=== PATIENT | male | born 1960 | race Caucasian/White ===

== ENCOUNTER 2019-04-28 16:28 | Inpatient (IN) | payer OTHER ==
[~2019-04-28] VITALS: Ht 180.3 cm; Wt 68.2 kg
[2019-04-28 17:20] LABS: BASOPHILS % (AUTO) 0.2 % (0-1); EOSINOPHILS % (AUTO) 0 % (0-6); HEMATOCRIT 49.3 % (42.0-52.0); HEMOGLOBIN 16.7 g/dl (14.0-17.9); LYMPHOCYTES # (AUTO) 1.4 X10'3 (1.1-4.8); LYMPHOCYTES % (AUTO) 8.4 % (21-51); MEAN CORPUSCULAR HEMOGLOBIN 32.2 PG (27.0-31.0); MEAN CORPUSCULAR HGB CONC 33.8 g/dL (33.0-36.5); MEAN CORPUSCULAR VOLUME 95.2 FL (78-98); MEAN PLATELET VOLUME 8.3 FL (7.4-10.4); MONOCYTES # (AUTO) 0.5 X10'3 (0-0.9); MONOCYTES % (AUTO) 2.7 % (2-12); NEUTROPHILS # (AUTO) 15.1 X10'3 (1.8-7.7); NEUTROPHILS % (AUTO) 88.7 % (42-75); PLATELET COUNT 418 X10'3 (140-440); RED BLOOD COUNT 5.17 X10'6 (4.70-6.10); RED CELL DISTRIBUTION WIDTH 12.9 % (11.5-14.5)
[2019-04-28 17:38] LABS: ALANINE AMINOTRANSFERASE 26 U/L (12-78); ALBUMIN 4.1 G/DL (3.4-5.0); ALKALINE PHOSPHATASE 81 IU/L (46-116); ANION GAP 17 (8-16); ASPARTATE AMINO TRANSFERASE 6 U/L (10-37); BILIRUBIN,TOTAL 1.1 MG/DL (0.1-1.0); BLOOD UREA NITROGEN 16 MG/DL (7-18); BUN/CREATININE RATIO 14.5 (5.4-32.0); CALCIUM 10.5 MG/DL (8.5-10.1); CHLORIDE 98 MMOL/L (99-107); LIPASE 542 U/L (73-393); POTASSIUM 4.6 MMOL/L (3.5-5.1); SODIUM 136 MMOL/L (135-145); TOTAL CARBON DIOXIDE 21.5 MMOL/L (24-32); TOTAL PROTEIN 8.4 G/DL (6.4-8.2); eGFR 68 ML/MIN
[2019-04-28 17:47] LABS: GLUCOSE 522 MG/DL (70-104)
[2019-04-28 18:10] LABS: COLOR,URINE YELLOW (Yellow); GLUCOSE, URINE >=1000 mg/dl (Neg); KETONES,URINE 40 mg/dl (Neg); LEUKOCYTE ESTERASE ,URINE NEGATIVE (Neg); NITRITES, URINE NEGATIVE (Neg); OCCULT BLOOD,URINE NEGATIVE (Neg); PH,URINE 5.5 (4.8-8.0); PROTEIN,URINE NEGATIVE (Neg); UROBILINOGEN,URINE 0.2 E.U/dL (0.2-1.0)
[2019-04-28 18:12] LABS: CLARITY,URINE SLIGHTLY CLOUDY (Clear); UA COLLECTION TYPE CLN CATCH MIDSTREAM
[2019-04-28] MEDS ORDERED: metoclopramide 5 mg/ml inj IV STA (18:14)
[2019-04-28] MEDS ORDERED: potassium CL 20mEq in D5-1/2NS 1,000 ML IV PRN (18:16)
[2019-04-28] MEDS ORDERED: sodium bicarbonate (8.4%) inj. 100 MEQ in dextrose 5% water 500ml 500 ML IV PRN (18:16)
[2019-04-28] MEDS ORDERED: insulin regular, DKA only 100 UNIT in normal saline 100ml IV soln 99 ML IV SCH ×2 (18:16)
[2019-04-28] MEDS ORDERED: sodium bicarbonate (8.4%) inj. 50 MEQ in dextrose 5% water 500ml 250 ML IV PRN (18:16)
[2019-04-28] MEDS ORDERED: metroNIDAZOLE-Flagyl 500mg/NS 100 ML IV STA (18:16)
[2019-04-28] MEDS ORDERED: normal saline 1000ML IV soln IVB ONE ×2 (18:20→20:55)
[2019-04-28] MEDS ORDERED: potassium Cl 20 mEq SR tablet PO PRN ×3 (18:20→21:00)
[2019-04-28] MEDS ORDERED: potassium CL 10mEq/100ml bag 100 ML IV PRN ×4 (18:20→21:00)
[2019-04-28] MEDS ORDERED: Neutra Phos packet PO PRN (18:20)
[2019-04-28] MEDS ORDERED: insulin regular, human vial - multi-dose IV PRN (18:20)
[2019-04-28] MEDS ORDERED: sodium phosphate inj. 30 MMOL in dextrose 5%-water 250 ML IV PRN (18:20)
[2019-04-28] MEDS ORDERED: sodium phosphate inj. 15 MMOL in dextrose 5%-water 150 ML IV PRN (18:20)
--- NOTE | 2019-04-28 18:23 | NUR ---
pt going out to ct. He was given reglan for his wretching episode.
--- NOTE | 2019-04-28 18:27 | NUR ---
Dr. Willett in room, he said to yes, please order Blood cultures. So done,
[2019-04-28 18:38] LABS: BACTERIA,URINE NONE SEEN /HPF (Neg); RBC,URINE 0-2 /HPF (0-2); WBC,URINE 0-4 /HPF (0-4)
[2019-04-28 18:40] LABS: SQUAMOUS EPITHELIAL CELL,UR FEW /LPF (FEW)
--- NOTE | 2019-04-28 18:46 | NUR ---
New IV RW, not able to get blood from site so phleb here to get blood.
[2019-04-28] MEDS ORDERED: insulin regular, human 10 units/0.1 ml syringe IV PRN (18:56)
[2019-04-28] MEDS: ciprofloxacin lact 400MG/200ML 200 ML IV SCH ×2 (19:00→20:00)
[2019-04-28] MEDS ORDERED: fentaNYL/PF 50MCG/1 ML 2ML syringe IV STA (19:18)
--- NOTE | 2019-04-28 19:19 | NUR ---
pt sitting up wretching and vomiting.
[2019-04-28] MEDS ORDERED: NO HOME MEDS (19:44)
--- NOTE | 2019-04-28 20:37 | NUR ---
PT SAYS HE HAS PAIN ACROSS HIS SHOULDER BLADES/BACK AREA, STILL NAUSEATED. HE LOOKS BETTER THOUGH. HE IS ACTUALLY PINK IN COLOR. INFORMED.
[2019-04-28] MEDS ORDERED: fentaNYL/PF 50MCG/1 ML 2ML syringe IV ONE (20:40)
[2019-04-28] MEDS ORDERED: ondansetron/PF 4mg/2ml inj IV ONE (20:40)
--- NOTE | 2019-04-28 20:42 | NUR ---
Dr Willett informed of LA, instructed to administer 2000ml NS bolus, so doing.
[2019-04-28] MEDS ORDERED: normal saline 1000ml 1,000 ML IVB ONE ×2 (20:48→20:50)
--- NOTE | 2019-04-28 20:55 | NUR ---
DR WOLFE STATED TO STOP THE INSULIN. SO DONE.
[2019-04-28] MEDS ORDERED: magnesium hydroxide 30ml (MOM) UD suspension PO PRN (21:00)
[2019-04-28] MEDS ORDERED: dextrose ORAL solution 15 GM/59 ML bottle PO PRN ×2 (21:00)
[2019-04-28] MEDS ORDERED: glucagon, human recombinant 1mg kit SUBCUT PRN (21:00)
[2019-04-28] MEDS ORDERED: acetaminophen 325mg tablet PO PRN ×2 (21:00)
[2019-04-28] MEDS ORDERED: HYDROcodone/acetaminophen 5mg/325mg tablet PO PRN (21:00)
[2019-04-28] MEDS ORDERED: MESSAGE TO PHARMACY PO ONE (21:00)
[2019-04-28] MEDS ORDERED: dextrose 50%-water 50ml dispensing syringe IV PRN ×2 (21:00)
[2019-04-28 21:19] LABS: HEMOGLOBIN A1C 10.3 % (4.5-6.2)
[2019-04-28 22:10] VITALS: BP 135/69
--- NOTE | 2019-04-28 22:27 | NUR ---
Patient in room PCU 3027. I have received report from Maricarmen MARINA and had the opportunity to ask questions and assume patient care.
[2019-04-28] MEDS: normal saline 1000ml 1,000 ML IV SCH (22:52)
[2019-04-28 23:00] VITALS: BP 158/83
--- NOTE | 2019-04-28 23:20 | NUR ---
Patient nauseated and tired, refused DARTing tonight.
[2019-04-28] MEDS: insulin glargine (Lantus) pen - multi-dose SQ SCH (23:24)
[2019-04-29 02:00] VITALS: BP 160/87
[2019-04-29] MEDS: ondansetron/PF 4mg/2ml inj IV PRN (02:20)
[2019-04-29] MEDS: mag hydrox/Alum hydrox/simeth 30ml oral suspension PO PRN (03:11)
[2019-04-29] MEDS: metoclopramide 5 mg/ml inj IV PRN (04:29)
[2019-04-29] MEDS: normal saline 1000ml 1,000 ML IV SCH ×3 (05:14→17:07)
[2019-04-29 06:00] VITALS: BP 151/82
--- NOTE | 2019-04-29 06:27 | NUR ---
Problems reprioritized. Patient report given, questions answered & plan of care reviewed with Krystian MARINA and orientee.
--- NOTE | 2019-04-29 06:28 | NUR ---
Patient in room PCU 3027. I have received report from SALAS Pereira and had the opportunity to ask questions and assume patient care.
[2019-04-29 07:14] LABS: BASOPHILS # (AUTO) 0.1 X10'3 (0-0.2); BASOPHILS % (AUTO) 0.3 % (0-1); EOSINOPHILS % (AUTO) 0 % (0-6); HEMOGLOBIN 13.5 g/dl (14.0-17.9); LYMPHOCYTES # (AUTO) 1.1 X10'3 (1.1-4.8); LYMPHOCYTES % (AUTO) 5.5 % (21-51); MEAN CORPUSCULAR HEMOGLOBIN 32.3 PG (27.0-31.0); MEAN CORPUSCULAR HGB CONC 33.8 g/dL (33.0-36.5); MEAN CORPUSCULAR VOLUME 95.3 FL (78-98); MONOCYTES # (AUTO) 0.7 X10'3 (0-0.9); MONOCYTES % (AUTO) 3.7 % (2-12); NEUTROPHILS # (AUTO) 17.5 X10'3 (1.8-7.7); NEUTROPHILS % (AUTO) 90.5 % (42-75); PLATELET COUNT 323 X10'3 (140-440); RED BLOOD COUNT 4.19 X10'6 (4.70-6.10); WHITE BLOOD COUNT 19.4 X10'3 (4.5-11.0)
--- NOTE | 2019-04-29 07:32 | NUR ---
2000 Ziprofloxan not ran by ER.
--- NOTE | 2019-04-29 07:33 | NUR ---
One liter Bolus for 1999 not ran by ER
[2019-04-29 07:35] LABS: ALBUMIN 2.8 G/DL (3.4-5.0); ANION GAP 14 (8-16); BLOOD UREA NITROGEN 12 MG/DL (7-18); CALCIUM 7.7 MG/DL (8.5-10.1); CHLORIDE 106 MMOL/L (99-107); CHOL/HDL RATIO 3.1 (0.00-4.99); CHOLESTEROL 166 MG/DL (0-200); CREATININE 0.86 MG/DL (0.60-1.10); GLUCOSE 307 MG/DL (70-104); HDL CHOLESTEROL 54 MG/DL (35-60); LDL CHOLESTEROL 105 MG/DL (50-100); POTASSIUM 3.8 MMOL/L (3.5-5.1); SODIUM 140 MMOL/L (135-145); TOTAL CARBON DIOXIDE 20.4 MMOL/L (24-32); TRIGLYCERIDES 37 MG/DL (20-135); eGFR > 90 ML/MIN
[2019-04-29] MEDS: K and/or MAG REPLACEMENT MC SCH ×2 (08:00)
[2019-04-29] MEDS: ciprofloxacin lact 400MG/200ML 200 ML IV SCH ×2 (08:13→19:53)
[2019-04-29] MEDS: enoxaparin 40mg/0.4ml syringe SUBCUT SCH (08:13)
[2019-04-29] MEDS: insulin Lispro (HumaLOG) vial - multi-dose SQ SCH ×2 (09:19→14:56)
[2019-04-29 11:00] VITALS: BP 101/61
[2019-04-29 15:00] VITALS: BP 118/68
[2019-04-29 15:37] LABS: BASOPHILS # (AUTO) 0.1 X10'3 (0-0.2); BASOPHILS % (AUTO) 0.6 % (0-1); EOSINOPHILS # (AUTO) 0.1 X10'3 (0-0.9); EOSINOPHILS % (AUTO) 0.9 % (0-6); HEMATOCRIT 39.9 % (42.0-52.0); HEMOGLOBIN 13.2 g/dl (14.0-17.9); LYMPHOCYTES # (AUTO) 1.8 X10'3 (1.1-4.8); LYMPHOCYTES % (AUTO) 11.8 % (21-51); MEAN CORPUSCULAR HEMOGLOBIN 31.8 PG (27.0-31.0); MEAN CORPUSCULAR HGB CONC 33.1 g/dL (33.0-36.5); MEAN CORPUSCULAR VOLUME 95.9 FL (78-98); MEAN PLATELET VOLUME 8.2 FL (7.4-10.4); MONOCYTES # (AUTO) 1.2 X10'3 (0-0.9); MONOCYTES % (AUTO) 7.7 % (2-12); NEUTROPHILS # (AUTO) 12.3 X10'3 (1.8-7.7); PLATELET COUNT 305 X10'3 (140-440); RED BLOOD COUNT 4.17 X10'6 (4.70-6.10); RED CELL DISTRIBUTION WIDTH 12.9 % (11.5-14.5); WHITE BLOOD COUNT 15.6 X10'3 (4.5-11.0)
--- NOTE | 2019-04-29 16:18 | NUR ---
DM consult: Pt with A1c 10.3 seen at bedside. Pt declined RD visit d/t having visitors at bedside. Written gastroparesis, list of fiber content in food, and DM education with referral to outpatient DM class and RD contact information left at bedside. Per H&P pt noncompliant with taking DM medications. Pt admit with N/V, diarrhea, and dehydration receiving PRN Reglan for hx gastroparesis. Pt currently on a clear liquid diet documented to have refused breakfast. Per pt he wont eat most of the food options on clear liquid diet d/t there being sugar in them. LBM 04/28. Will continue to follow. Recommendations: 1) Advance to low residue CHO controlled diet as medically indicated 2) Monitor acceptance to f/u verbal DM and gastroparesis education 3) Wt per rx Addendum: 04/29/19 at [address] Amended: Links added.
[2019-04-29 18:00] VITALS: BP 132/69
--- NOTE | 2019-04-29 18:25 | NUR ---
Problems reprioritized. Patient report given, questions answered & plan of care reviewed with SALAS Pereira.
--- NOTE | 2019-04-29 18:45 | NUR ---
Patient in room PCU 3027. I have received report from Kaz. and had the opportunity to ask questions and assume patient care.
--- NOTE | 2019-04-29 19:14 | NUR ---
No nutritional insulin coverage administered because of the unknown carb consumed by the patient and the patient diet was not advanced from Clear Liquid to Carb controlled diet. We will recheck his sugar at 2100.
[2019-04-29] MEDS: lactobacillus rhamnosus 10,000 MMU CELLS/CAPSULE PO SCH (19:54)
[2019-04-29] MEDS: insulin glargine (Lantus) pen - multi-dose SQ SCH (21:24)
[2019-04-29 22:00] VITALS: BP 139/89
[2019-04-30 02:00] VITALS: BP 112/70
[2019-04-30] MEDS: normal saline 1000ml 1,000 ML IV SCH ×2 (04:24→15:03)
--- NOTE | 2019-04-30 05:18 | NUR ---
Orientee documentation: I have reviewed and agree with all interventions, assessments performed and documented by Nely MARINA.
[2019-04-30 05:30] LABS: ALBUMIN 2.5 G/DL (3.4-5.0); ANION GAP 9 (8-16); BLOOD UREA NITROGEN 9 MG/DL (7-18); BUN/CREATININE RATIO 13.2 (5.4-32.0); CALCIUM 8.1 MG/DL (8.5-10.1); CHLORIDE 109 MMOL/L (99-107); CREATININE 0.68 MG/DL (0.60-1.10); GLUCOSE 133 MG/DL (70-104); POTASSIUM 3.1 MMOL/L (3.5-5.1); SODIUM 142 MMOL/L (135-145); TOTAL CARBON DIOXIDE 24.4 MMOL/L (24-32); eGFR > 90 ML/MIN
[2019-04-30 06:00] VITALS: BP 125/75
--- NOTE | 2019-04-30 06:15 | NUR ---
Problems reprioritized. Patient report given, questions answered & plan of care reviewed with Krystian MARINA.
[2019-04-30 06:17] LABS: BASOPHILS # (AUTO) 0.1 X10'3 (0-0.2); BASOPHILS % (AUTO) 0.5 % (0-1); EOSINOPHILS # (AUTO) 0.3 X10'3 (0-0.9); EOSINOPHILS % (AUTO) 2.6 % (0-6); HEMOGLOBIN 12.9 g/dl (14.0-17.9); LYMPHOCYTES % (AUTO) 18.1 % (21-51); MEAN CORPUSCULAR HGB CONC 34.9 g/dL (33.0-36.5); MEAN CORPUSCULAR VOLUME 94.6 FL (78-98); MONOCYTES # (AUTO) 0.7 X10'3 (0-0.9); MONOCYTES % (AUTO) 6.8 % (2-12); NEUTROPHILS # (AUTO) 7.8 X10'3 (1.8-7.7); PLATELET COUNT 285 X10'3 (140-440); RED BLOOD COUNT 3.91 X10'6 (4.70-6.10); RED CELL DISTRIBUTION WIDTH 12.9 % (11.5-14.5); WHITE BLOOD COUNT 10.9 X10'3 (4.5-11.0)
--- NOTE | 2019-04-30 06:59 | NUR ---
Patient in room PCU 3027. I have received report from SALAS Pereira and had the opportunity to ask questions and assume patient care.
[2019-04-30] MEDS: K and/or MAG REPLACEMENT MC SCH ×2 (07:05)
[2019-04-30] MEDS: lactobacillus rhamnosus 10,000 MMU CELLS/CAPSULE PO SCH ×2 (08:10→20:20)
[2019-04-30] MEDS: enoxaparin 40mg/0.4ml syringe SUBCUT SCH (08:10)
[2019-04-30] MEDS: potassium Cl 20 mEq SR tablet PO PRN ×2 (08:10→15:00)
[2019-04-30] MEDS: ciprofloxacin lact 400MG/200ML 200 ML IV SCH (08:11)
[2019-04-30] MEDS ORDERED: famotidine 20mg tablet PO SCH (09:20)
[2019-04-30] MEDS: mag hydrox/Alum hydrox/simeth 30ml oral suspension PO PRN (09:20)
[2019-04-30] MEDS: ondansetron/PF 4mg/2ml inj IV PRN ×2 (09:42→20:27)
[2019-04-30 11:00] VITALS: BP 163/81
[2019-04-30] MEDS: metoclopramide 5 mg/ml inj IV PRN (11:00)
[2019-04-30] MEDS: HYDROmorphone inj. 0.5 MG/0.5 ML DISP.SYRIN IV PRN ×2 (11:08→20:28)
[2019-04-30 14:01] LABS: H PYLORI ANTIBODY NEGATIVE (Neg)
[2019-04-30 14:24] LABS: ALANINE AMINOTRANSFERASE 21 U/L (12-78); ALBUMIN/GLOBULIN RATIO 0.9 (1.1-1.5); ASPARTATE AMINO TRANSFERASE 11 U/L (10-37); BILIRUBIN,DIRECT 0.1 MG/DL (0-0.3); BILIRUBIN,TOTAL 0.6 MG/DL (0.1-1.0); LIPASE 344 U/L (73-393); TOTAL PROTEIN 5.4 G/DL (6.4-8.2)
[2019-04-30 14:35] LABS: ALKALINE PHOSPHATASE 42 IU/L (46-116)
[2019-04-30 15:00] VITALS: BP 166/93
[2019-04-30] MEDS: pantoprazole 40 MG vial IV SCH (15:00)
[2019-04-30] MEDS: mag hydrox/Alum hydrox/simeth 30ml oral suspension PO SCH ×3 (15:00→20:20)
--- NOTE | 2019-04-30 16:18 | NUR ---
PAGER ID: [phone] MESSAGE: BAILEY [id number] Rl Garcias: BP 166/93 SALAS Boland Ext [phone]
[2019-04-30] MEDS ORDERED: LORazepam 1 MG tablet PO PRN (16:20)
--- NOTE | 2019-04-30 18:20 | NUR ---
Problems reprioritized. Patient report given, questions answered & plan of care reviewed with SALAS Sanders.
--- NOTE | 2019-04-30 18:22 | NUR ---
Patient in room PCU 3027. I have received report from SALAS Boland and had the opportunity to ask questions and assume patient care.
[2019-04-30 19:00] VITALS: BP 173/93
[2019-04-30] MEDS: insulin Lispro (HumaLOG) vial - multi-dose SQ SCH (19:40)
--- NOTE | 2019-04-30 20:37 | NUR ---
PAGER ID: [phone] MESSAGE: Patient Rl Garcias in room 9306J is experiencing extreme unresolved N/V. Zolfran is ineffective but must be given before Reglan according to orders. Can more effective medication be ordered. [facility] Marilyn [phone]
[2019-04-30] MEDS ORDERED: temazepam 15mg capsule PO PRN (20:55)
[2019-04-30] MEDS: insulin glargine (Lantus) pen - multi-dose SQ SCH (22:07)
[2019-04-30 23:00] VITALS: BP 115/67
[2019-05-01] VITALS (9 sets, daily range): BP systolic 94–143; BP diastolic 60–81
[2019-05-01] MEDS: normal saline 1000ml 1,000 ML IV SCH ×2 (00:31→10:24)
[2019-05-01] MEDS: HYDROmorphone inj. 0.5 MG/0.5 ML DISP.SYRIN IV PRN (00:32)
[2019-05-01 05:43] LABS: BASOPHILS % (AUTO) 0.4 % (0-1); EOSINOPHILS # (AUTO) 0.2 X10'3 (0-0.9); EOSINOPHILS % (AUTO) 1.6 % (0-6); HEMATOCRIT 37.9 % (42.0-52.0); HEMOGLOBIN 13.2 g/dl (14.0-17.9); LYMPHOCYTES % (AUTO) 20.7 % (21-51); MEAN CORPUSCULAR HEMOGLOBIN 32.9 PG (27.0-31.0); MEAN CORPUSCULAR HGB CONC 34.8 g/dL (33.0-36.5); MEAN CORPUSCULAR VOLUME 94.5 FL (78-98); MEAN PLATELET VOLUME 7.8 FL (7.4-10.4); MONOCYTES # (AUTO) 0.9 X10'3 (0-0.9); MONOCYTES % (AUTO) 9.4 % (2-12); NEUTROPHILS # (AUTO) 6.6 X10'3 (1.8-7.7); NEUTROPHILS % (AUTO) 67.9 % (42-75); PLATELET COUNT 293 X10'3 (140-440); RED BLOOD COUNT 4.01 X10'6 (4.70-6.10); RED CELL DISTRIBUTION WIDTH 12.8 % (11.5-14.5); WHITE BLOOD COUNT 9.7 X10'3 (4.5-11.0)
[2019-05-01 05:57] LABS: ALBUMIN 2.3 G/DL (3.4-5.0); ANION GAP 9 (8-16); BLOOD UREA NITROGEN 6 MG/DL (7-18); BUN/CREATININE RATIO 9.1 (5.4-32.0); CALCIUM 7.2 MG/DL (8.5-10.1); CHLORIDE 105 MMOL/L (99-107); CREATININE 0.66 MG/DL (0.60-1.10); GLUCOSE 111 MG/DL (70-104); SODIUM 140 MMOL/L (135-145); TOTAL CARBON DIOXIDE 25.9 MMOL/L (24-32); eGFR > 90 ML/MIN
[2019-05-01 06:04] LABS: POTASSIUM 2.9 MMOL/L (3.5-5.1)
--- NOTE | 2019-05-01 06:22 | NUR ---
Patient in room PCU 3027. I have received report from SALAS Sylvester and had the opportunity to ask questions and assume patient care.
--- NOTE | 2019-05-01 06:34 | NUR ---
Problems reprioritized. Patient report given, questions answered & plan of care reviewed with SALAS Boland. Addendum: 05/01/19 at 0635 by Krystian Delgado RN Correction reported received from SALAS Sanders.
[2019-05-01] MEDS: K and/or MAG REPLACEMENT MC SCH ×2 (07:17)
[2019-05-01] MEDS: mag hydrox/Alum hydrox/simeth 30ml oral suspension PO SCH ×3 (08:10→17:00)
[2019-05-01] MEDS: lactobacillus rhamnosus 10,000 MMU CELLS/CAPSULE PO SCH (08:10)
[2019-05-01] MEDS: pantoprazole 40 MG vial IV SCH (08:10)
[2019-05-01] MEDS: enoxaparin 40mg/0.4ml syringe SUBCUT SCH (08:11)
[2019-05-01] MEDS: Potassium Cl 40 MEQ in NS 500 ML IV SCH ×2 (09:36→13:00)
[2019-05-01] MEDS ORDERED: MIDAZolam 5mg/5ml vial ONE (12:12)
[2019-05-01] MEDS ORDERED: fentaNYL/PF 50MCG/1 ML 2ML syringe ONE (12:12)
[2019-05-01] MEDS ORDERED: LIDOcaine Viscous 15ml cup ONE (12:35)
[2019-05-01] MEDS ORDERED: METF500T PO (15:24)
[2019-05-01] MEDS ORDERED: PANT-47 PO (15:24)
[2019-05-01] MEDS ORDERED: ONDA4TAB6 PO (15:28)
--- NOTE | 2019-05-01 15:41 | NUR ---
Awaiting BMP before discharge to K of 2.98 in the morning.
[2019-05-01 16:44] LABS: ALBUMIN 2.6 G/DL (3.4-5.0); ANION GAP 9 (8-16); BLOOD UREA NITROGEN 7 MG/DL (7-18); BUN/CREATININE RATIO 11.5 (5.4-32.0); CALCIUM 7.7 MG/DL (8.5-10.1); CHLORIDE 108 MMOL/L (99-107); CREATININE 0.61 MG/DL (0.60-1.10); GLUCOSE 95 MG/DL (70-104); SODIUM 142 MMOL/L (135-145); TOTAL CARBON DIOXIDE 25.3 MMOL/L (24-32); eGFR > 90 ML/MIN
[2019-05-01 16:46] LABS: POTASSIUM 3.8 MMOL/L (3.5-5.1)
--- NOTE | 2019-05-01 17:09 | NUR ---
Discharged, IV and tele off. K normalized and tolerated solid foods. Educated on DM survival skill and GI Bleed. Educated on meds and follow up. Meds called into [facility] in [place]. Nadja for DC per .
== END 2019-05-01 17:20 | disposition home or self-care (01) | DRG 637 ==
LOC: ER 16:29 → PCU 3S 22:25
PROVIDERS: ADMIT Hospitalist; ATTEND Family Medicine
PROC: 0DB98ZX Excision of Duodenum, Via Natural or Artificial Opening Endoscopic, Diagnostic (ICD-10-PCS; principal; 2019-05-01)
PROC: 0DB68ZX Excision of Stomach, Via Natural or Artificial Opening Endoscopic, Diagnostic (ICD-10-PCS; 2019-05-01)
DX: E11.10 Type 2 diabetes mellitus with ketoacidosis without coma (principal); K85.90 Acute pancreatitis without necrosis or infection, unspecified; K86.1 Other chronic pancreatitis; K29.70 Gastritis, unspecified, without bleeding; D64.9 Anemia, unspecified; E11.43 Type 2 diabetes mellitus with diabetic autonomic (poly)neuropathy; E86.0 Dehydration; R74.8 Abnormal levels of other serum enzymes; E87.6 Hypokalemia; K31.84 Gastroparesis; K52.9 Noninfective gastroenteritis and colitis, unspecified; Z87.442 Personal history of urinary calculi; Z91.14 Patient's other noncompliance with medication regimen; Z91.19 Patient's noncompliance with other medical treatment and regimen; Z88.0 Allergy status to penicillin
CPT/HCPCS: 36415; 43239; 71045; 74176; 80048; 80053; 80061; 80076; 81001; 82948; 83036; 83605; 83690; 84145; 84443; 85025; 85610; 86677; 87040; 87081; 99152; 99285; A4620; C9113; G0378; J0744; J1170; J1650; J1815; J2250; J2405; J2765; J3010; J3480; J3490; J7030; J7040

== ENCOUNTER 2020-04-23 08:56 | Inpatient (IN) | payer MEDICAID ==
[~2020-04-23] VITALS: Ht 180.3 cm; Wt 68.2 kg
[~2020-04-23 08:56] MED LIST: ONDA4TAB6 PO; PANT-47 PO
[2020-04-23] MEDS ORDERED: ondansetron/PF 4mg/2ml inj IV ONE (09:15)
[2020-04-23] MEDS ORDERED: normal saline 1000ML IV soln IVB ONE (09:15)
[2020-04-23] MEDS ORDERED: morphine 4 MG/ML inj SYRINge IV PRN (09:15)
[2020-04-23] MEDS ORDERED: ciprofloxacin lact 400MG/200ML 200 ML IV STA (10:08)
[2020-04-23 10:25] LABS: BASOPHILS % (AUTO) 0.2 % (0-1); EOSINOPHILS % (AUTO) 0 % (0-6); HEMATOCRIT 44.3 % (42.0-52.0); HEMOGLOBIN 15.1 g/dl (14.0-17.9); LYMPHOCYTES # (AUTO) 0.8 X10'3 (1.1-4.8); MEAN CORPUSCULAR HEMOGLOBIN 32.7 PG (27.0-31.0); MEAN CORPUSCULAR VOLUME 96.3 FL (78-98); MEAN PLATELET VOLUME 7.3 FL (7.4-10.4); MONOCYTES # (AUTO) 0.3 X10'3 (0-0.9); MONOCYTES % (AUTO) 2.8 % (2-12); NEUTROPHILS # (AUTO) 10.6 X10'3 (1.8-7.7); PLATELET COUNT 283 X10'3 (140-440); RED BLOOD COUNT 4.61 X10'6 (4.70-6.10); RED CELL DISTRIBUTION WIDTH 13.2 % (11.5-14.5); WHITE BLOOD COUNT 11.7 X10'3 (4.5-11.0)
[2020-04-23 10:35] LABS: CLARITY,URINE CLEAR (Clear); COLOR,URINE YELLOW (Yellow); GLUCOSE, URINE 500 mg/dl (Neg); KETONES,URINE >=80 mg/dl (Neg); LEUKOCYTE ESTERASE ,URINE NEGATIVE (Neg); NITRITES, URINE NEGATIVE (Neg); OCCULT BLOOD,URINE LARGE (Neg); PROTEIN,URINE 100 mg/dl (Neg); UROBILINOGEN,URINE 0.2 E.U/dL (0.2-1.0)
[2020-04-23 10:36] LABS: ALANINE AMINOTRANSFERASE 26 U/L (12-78); ALBUMIN 4.3 G/DL (3.4-5.0); ALKALINE PHOSPHATASE 48 IU/L (46-116); ANION GAP 8 (8-16); ASPARTATE AMINO TRANSFERASE 11 U/L (10-37); BILIRUBIN,TOTAL 1.2 MG/DL (0.1-1.0); BLOOD UREA NITROGEN 16 MG/DL (7-18); CALCIUM 9.4 MG/DL (8.5-10.1); CHLORIDE 99 MMOL/L (99-107); CREATININE 1.07 MG/DL (0.60-1.10); GLUCOSE 256 MG/DL (70-104); LIPASE 57 U/L (73-393); SODIUM 136 MMOL/L (135-145); TOTAL CARBON DIOXIDE 29.1 MMOL/L (24-32); TOTAL PROTEIN 8.4 G/DL (6.4-8.2); eGFR 70 ML/MIN
[2020-04-23 10:42] LABS: RBC,URINE 50-100 /HPF (0-2); UA COLLECTION TYPE CLN CATCH MIDSTREAM; WBC,URINE NONE SEEN /HPF (0-4)
[2020-04-23 10:43] LABS: BACTERIA,URINE NONE SEEN /HPF (Neg); SQUAMOUS EPITHELIAL CELL,UR NONE SEEN /LPF (FEW)
[2020-04-23] MEDS ORDERED: ketorolac trometh. 30mg/ml inj. IV ONE (10:50)
[2020-04-23] MEDS ORDERED: proCHLORperazine 10 MG/2 ml inj IV ONE (11:15)
[2020-04-23] MEDS: tamsulosin 0.4mg capsule PO SCH ×2 (11:51→20:19)
[2020-04-23] MEDS ORDERED: magnesium 2GM in 50ml NS 50 ML IV PRN (13:35)
[2020-04-23] MEDS ORDERED: ondansetron/PF 4mg/2ml inj IV PRN (13:35)
[2020-04-23] MEDS ORDERED: magnesium Cl slow-release 64mg tablet PO PRN (13:35)
[2020-04-23] MEDS ORDERED: acetaminophen 325mg tablet PO PRN (13:35)
[2020-04-23] MEDS ORDERED: magnesium 4gm in 100ml NS 100 ML IV PRN (13:35)
--- NOTE | 2020-04-23 13:57 | NUR ---
nils [phone]
[2020-04-23] MEDS: normal saline 1000ml 1,000 ML IV SCH ×2 (14:26→23:44)
--- NOTE | 2020-04-23 15:29 | NUR ---
Received report from SALAS Solares. Awaiting patient arrival to room 350A.
[2020-04-23 15:43] VITALS: BP 103/53
--- NOTE | 2020-04-23 15:56 | NUR ---
Received patient to room 350A via gurney accompanied by x1 staff. Patient pleasant, A&O with no complaints at this time. Oriented patient to room and call light. Educated patient straining of all urine. NS@100 as ordered infusing. Bed is low and locked with x2 side rails up. nilesh Medina RN at bedside to DART patient.
[2020-04-23] MEDS ORDERED: dextrose ORAL solution 15 GM/59 ML bottle PO PRN ×2 (17:50)
[2020-04-23] MEDS ORDERED: insulin Lispro (HumaLOG) vial - multi-dose SQ SCH (17:50)
[2020-04-23] MEDS ORDERED: glucagon, human recombinant 1mg kit SUBCUT PRN (17:50)
[2020-04-23] MEDS ORDERED: dextrose 50%-water 50ml dispensing syringe IV PRN ×2 (17:50)
[2020-04-23] MEDS ORDERED: MESSAGE TO PHARMACY PO ONE (17:50)
--- NOTE | 2020-04-23 18:22 | NUR ---
Problems reprioritized. Patient report given, questions answered & plan of care reviewed with SALAS Piper.
[2020-04-23 18:33] LABS: HEMOGLOBIN A1C 6.1 % (4.5-6.2)
--- NOTE | 2020-04-23 18:37 | NUR ---
Patient in room BOZENA 350. I have received report from Cynthia MARINA and had the opportunity to ask questions and assume patient care.
[2020-04-23] MEDS: levoFLOXACIN-Levaquin 500mg/D5 100 ML IV SCH (18:42)
[2020-04-23] MEDS: pantoprazole 40 MG vial IV SCH (18:42)
[2020-04-23] MEDS: morphine 2 MG/ML inj. syringe IV PRN (18:49)
[2020-04-23 20:00] VITALS: BP 125/66
[2020-04-23] MEDS: insulin glargine (Lantus) pen - multi-dose SQ SCH (21:00)
[2020-04-23] MEDS ORDERED: tamsulosin 0.4mg capsule PO SCH (21:00)
--- NOTE | 2020-04-24 00:04 | NUR ---
patient is on clear liquid diet now so completed blood glucose q6h. Patient has not met DM protocol yet
[2020-04-24 00:15] VITALS: BP 102/53
[2020-04-24 05:49] LABS: BASOPHILS % (AUTO) 0.4 % (0-1); EOSINOPHILS % (AUTO) 0.3 % (0-6); HEMATOCRIT 32.9 % (42.0-52.0); HEMOGLOBIN 11.6 g/dl (14.0-17.9); LYMPHOCYTES # (AUTO) 1.9 X10'3 (1.1-4.8); LYMPHOCYTES % (AUTO) 20.6 % (21-51); MEAN CORPUSCULAR HEMOGLOBIN 33.8 PG (27.0-31.0); MEAN CORPUSCULAR HGB CONC 35.1 g/dL (33.0-36.5); MEAN CORPUSCULAR VOLUME 96.2 FL (78-98); MEAN PLATELET VOLUME 7.3 FL (7.4-10.4); MONOCYTES # (AUTO) 0.8 X10'3 (0-0.9); MONOCYTES % (AUTO) 8.6 % (2-12); NEUTROPHILS # (AUTO) 6.5 X10'3 (1.8-7.7); NEUTROPHILS % (AUTO) 70.1 % (42-75); PLATELET COUNT 231 X10'3 (140-440); RED BLOOD COUNT 3.42 X10'6 (4.70-6.10); RED CELL DISTRIBUTION WIDTH 13.1 % (11.5-14.5); WHITE BLOOD COUNT 9.2 X10'3 (4.5-11.0)
[2020-04-24 05:56] LABS: ALBUMIN 2.6 G/DL (3.4-5.0); ANION GAP 5 (8-16); BLOOD UREA NITROGEN 20 MG/DL (7-18); BUN/CREATININE RATIO 21.7 (5.4-32.0); CALCIUM 7.5 MG/DL (8.5-10.1); CHLORIDE 109 MMOL/L (99-107); CREATININE 0.92 MG/DL (0.60-1.10); GLUCOSE 129 MG/DL (70-104); MAGNESIUM 1.7 MG/DL (1.5-2.4); POTASSIUM 3.6 MMOL/L (3.5-5.1); SODIUM 140 MMOL/L (135-145); eGFR 84 ML/MIN
[2020-04-24] MEDS: morphine 2 MG/ML inj. syringe IV PRN ×3 (05:57→13:35)
--- NOTE | 2020-04-24 06:14 | NUR ---
Problems reprioritized. Patient report given, questions answered & plan of care reviewed with Malika MARINA.
--- NOTE | 2020-04-24 06:35 | NUR ---
Patient in room BOZENA 350. I have received report from linda MARINA and had the opportunity to ask questions and assume patient care.
[2020-04-24 07:00] VITALS: BP 172/79
[2020-04-24] MEDS: pantoprazole 40 MG vial IV SCH (07:20)
[2020-04-24] MEDS: levoFLOXACIN-Levaquin 500mg/D5 100 ML IV SCH (07:20)
[2020-04-24] MEDS ORDERED: LANTUS SQ (09:08)
--- NOTE | 2020-04-24 09:28 | NUR ---
patient vomited x3 this am and pain 10. Dr Arcos paged x2. Dr arcos informed patient is not under his care. Revised list sent. Dr nolasco paged and phone call made to cell phone awaiting reply.
[2020-04-24] MEDS ORDERED: proCHLORperazine 10 MG/2 ml inj IV PRN (09:35)
[2020-04-24] MEDS: normal saline 1000ml 1,000 ML IV SCH ×2 (09:46→20:19)
[2020-04-24 11:00] VITALS: BP 174/86
[2020-04-24] MEDS: HYDROmorphone 1 mg/ml syringe IV PRN (14:16)
--- NOTE | 2020-04-24 15:05 | NUR ---
DR Davis revised pain relief. Order given to Carmen MARINA to add Dilaudid see emar will monitor .
[2020-04-24 17:22] VITALS: BP 182/90
--- NOTE | 2020-04-24 17:40 | NUR ---
reviewed student nurse charting
--- NOTE | 2020-04-24 18:00 | NUR ---
Patient in room BOZENA 350. I have received report from Malika MARINA and had the opportunity to ask questions and assume patient care.
--- NOTE | 2020-04-24 18:32 | NUR ---
Problems reprioritized. Patient report given, questions answered & plan of care reviewed with linda MARINA.
[2020-04-24 19:48] VITALS: BP 136/71
[2020-04-24] MEDS: lactobacillus rhamnosus 10,000 MMU CELLS/CAPSULE PO SCH (20:20)
[2020-04-24] MEDS: tamsulosin 0.4mg capsule PO SCH (20:20)
[2020-04-24] MEDS: insulin glargine (Lantus) pen - multi-dose SQ SCH (21:00)
[2020-04-25] VITALS: BP 135/67
[2020-04-25 04:28] LABS: BASOPHILS % (AUTO) 0.4 % (0-1); EOSINOPHILS % (AUTO) 0.1 % (0-6); HEMATOCRIT 35.9 % (42.0-52.0); HEMOGLOBIN 12.3 g/dl (14.0-17.9); LYMPHOCYTES # (AUTO) 1.6 X10'3 (1.1-4.8); LYMPHOCYTES % (AUTO) 14.9 % (21-51); MEAN CORPUSCULAR HGB CONC 34.3 g/dL (33.0-36.5); MEAN CORPUSCULAR VOLUME 96.3 FL (78-98); MEAN PLATELET VOLUME 6.9 FL (7.4-10.4); MONOCYTES # (AUTO) 0.9 X10'3 (0-0.9); NEUTROPHILS # (AUTO) 8.3 X10'3 (1.8-7.7); NEUTROPHILS % (AUTO) 76.6 % (42-75); PLATELET COUNT 238 X10'3 (140-440); RED BLOOD COUNT 3.73 X10'6 (4.70-6.10); RED CELL DISTRIBUTION WIDTH 13.1 % (11.5-14.5); WHITE BLOOD COUNT 10.9 X10'3 (4.5-11.0)
[2020-04-25 04:40] LABS: ALBUMIN 2.7 G/DL (3.4-5.0); ANION GAP 7 (8-16); BLOOD UREA NITROGEN 15 MG/DL (7-18); CALCIUM 7.7 MG/DL (8.5-10.1); CHLORIDE 105 MMOL/L (99-107); CREATININE 0.79 MG/DL (0.60-1.10); GLUCOSE 154 MG/DL (70-104); MAGNESIUM 1.6 MG/DL (1.5-2.4); POTASSIUM 3.6 MMOL/L (3.5-5.1); SODIUM 138 MMOL/L (135-145); eGFR > 90 ML/MIN
[2020-04-25] MEDS: normal saline 1000ml 1,000 ML IV SCH ×3 (05:34→20:33)
--- NOTE | 2020-04-25 06:22 | NUR ---
Problems reprioritized. Patient report given, questions answered & plan of care reviewed with Malika MARINA.
[2020-04-25] MEDS: HYDROmorphone 1 mg/ml syringe IV PRN ×2 (06:24→17:45)
--- NOTE | 2020-04-25 06:33 | NUR ---
patient c/o pain 04/26. medicated with dilaudid see emar will continue to monitor.
--- NOTE | 2020-04-25 06:48 | NUR ---
Patient in room BOZENA 350. I have received report from linda MARINA and had the opportunity to ask questions and assume patient care.
[2020-04-25] MEDS: pantoprazole 40 MG vial IV SCH (07:39)
[2020-04-25] MEDS: levoFLOXACIN-Levaquin 500mg/D5 100 ML IV SCH (07:39)
[2020-04-25] MEDS: lactobacillus rhamnosus 10,000 MMU CELLS/CAPSULE PO SCH ×2 (07:39→20:32)
[2020-04-25 08:00] VITALS: BP 101/54
[2020-04-25 11:00] VITALS: BP 156/77
--- NOTE | 2020-04-25 17:57 | NUR ---
patient medicated with dilaudid with effect x2. Seen by Dr Davis. All urine strained. No stones or particulates observed. Stable at time of report.
--- NOTE | 2020-04-25 18:17 | NUR ---
Problems reprioritized. Patient report given, questions answered & plan of care reviewed with linda MARINA.
--- NOTE | 2020-04-25 18:18 | NUR ---
Patient in room BOZENA 350. I have received report from Malika MARINA and had the opportunity to ask questions and assume patient care.
[2020-04-25 20:00] VITALS: BP 126/62
[2020-04-25] MEDS: tamsulosin 0.4mg capsule PO SCH (20:32)
[2020-04-25] MEDS: insulin glargine (Lantus) pen - multi-dose SQ SCH (20:38)
[2020-04-26] VITALS: BP 147/76
--- NOTE | 2020-04-26 06:13 | NUR ---
Problems reprioritized. Patient report given, questions answered & plan of care reviewed with Suzy MARINA.
[2020-04-26 06:24] LABS: ALBUMIN 2.6 G/DL (3.4-5.0); ANION GAP 7 (8-16); BLOOD UREA NITROGEN 8 MG/DL (7-18); BUN/CREATININE RATIO 11.3 (5.4-32.0); CALCIUM 8.1 MG/DL (8.5-10.1); CHLORIDE 105 MMOL/L (99-107); CREATININE 0.71 MG/DL (0.60-1.10); GLUCOSE 124 MG/DL (70-104); MAGNESIUM 1.5 MG/DL (1.5-2.4); POTASSIUM 3.4 MMOL/L (3.5-5.1); SODIUM 137 MMOL/L (135-145); TOTAL CARBON DIOXIDE 25.1 MMOL/L (24-32); eGFR > 90 ML/MIN
[2020-04-26 07:00] VITALS: BP 142/75
[2020-04-26] MEDS: levoFLOXACIN-Levaquin 500mg/D5 100 ML IV SCH (07:36)
[2020-04-26] MEDS: pantoprazole 40 MG vial IV SCH (07:36)
[2020-04-26] MEDS: lactobacillus rhamnosus 10,000 MMU CELLS/CAPSULE PO SCH (07:36)
[2020-04-26] MEDS: HYDROmorphone 1 mg/ml syringe IV PRN (07:37)
[2020-04-26] MEDS: normal saline 1000ml 1,000 ML IV SCH (07:49)
--- NOTE | 2020-04-26 10:08 | NUR ---
Paged MD regarding low K level. called floor and stated she would put orders for potassium replacement.
[2020-04-26] MEDS ORDERED: potassium Cl 20 mEq SR tablet PO STA (10:10)
[2020-04-26] MEDS ORDERED: HYDR-4383 PO (10:55)
[2020-04-26] MEDS ORDERED: CIPR-259 PO (10:55)
[2020-04-26] MEDS ORDERED: ACET-1008 PO (10:55)
[2020-04-26] MEDS ORDERED: tamsulosin capsule PO (10:55)
[2020-04-26 12:07] LABS: BASOPHILS % (AUTO) 0.5 % (0-1); EOSINOPHILS # (AUTO) 0.1 X10'3 (0-0.9); EOSINOPHILS % (AUTO) 0.8 % (0-6); HEMATOCRIT 37.8 % (42.0-52.0); HEMOGLOBIN 13.1 g/dl (14.0-17.9); LYMPHOCYTES # (AUTO) 1.4 X10'3 (1.1-4.8); LYMPHOCYTES % (AUTO) 18.9 % (21-51); MEAN CORPUSCULAR HEMOGLOBIN 33.1 PG (27.0-31.0); MEAN CORPUSCULAR HGB CONC 34.5 g/dL (33.0-36.5); MEAN CORPUSCULAR VOLUME 95.9 FL (78-98); MEAN PLATELET VOLUME 7.6 FL (7.4-10.4); MONOCYTES # (AUTO) 0.7 X10'3 (0-0.9); MONOCYTES % (AUTO) 9.8 % (2-12); NEUTROPHILS # (AUTO) 5.3 X10'3 (1.8-7.7); PLATELET COUNT 258 X10'3 (140-440); RED BLOOD COUNT 3.94 X10'6 (4.70-6.10); RED CELL DISTRIBUTION WIDTH 12.8 % (11.5-14.5); WHITE BLOOD COUNT 7.6 X10'3 (4.5-11.0)
--- NOTE | 2020-04-26 12:07 | NUR ---
Reviewed discharge paperwork with pt. Pt. slightly disgruntled about discharge. Afraid his pain will not be managed and that he will need to "come right back". Pt. reassured. Pain prescription written for [place] provided to pt. Education given on gastritis, diabetes, A1C test, and duodenitis. Pt. was given the opportunity to ask questions. Discussed follow up care. Contact information given for MD [facility] office. Pt. knows to see Priscilla and his PCP within a week. Pt. has no questions about new medications which were called into [facility] in [place] by Joce. Waiting on CBC labs from this AM and pt's transport. Pt. has called his son and his son is coming to pick the pt. up.
--- NOTE | 2020-04-26 12:26 | NUR ---
IV DC'd, pressure bandage applied. NO s/sx bleeding. Pt. escorted in w/c to lower floor where son was here to transport pt. home. Pt. left with his belongings.
[2020-04-26 12:27] VITALS: BP 140/68
== END 2020-04-26 12:27 | disposition home or self-care (01) | DRG 463 ==
LOC: ER 08:57 → ED HOLD 13:34 → SUR 3N 15:37
PROVIDERS: ADMIT Internal Medicine; ATTEND Internal Medicine
DX: N13.6 Pyonephrosis (principal); E11.9 Type 2 diabetes mellitus without complications; E87.2 Acidosis; K21.9 Gastro-esophageal reflux disease without esophagitis; N40.0 Benign prostatic hyperplasia without lower urinary tract symptoms; Z79.4 Long term (current) use of insulin; Z87.442 Personal history of urinary calculi; Z79.899 Other long term (current) drug therapy
CPT/HCPCS: 36415; 74176; 80048; 80053; 81001; 82948; 83036; 83605; 83690; 83735; 84145; 84153; 85025; 87040; 87081; 93005; 96365; 96375; 99285; C9113; G0378; J0744; J0780; J1170; J1815; J1885; J1956; J2270; J2405; J7030

== ENCOUNTER 2020-09-06 13:11 | Emergency (ER) | payer MEDICAID ==
[~2020-09-06] VITALS: Ht 180.3 cm; Wt 70.5 kg
[~2020-09-06 13:11] MED LIST changes: +HYDR-4383 PO; +LANTUS SQ; -ONDA4TAB6 PO; -PANT-47 PO; +tamsulosin capsule PO
[2020-09-06] MEDS ORDERED: ondansetron/PF 4mg/2ml inj IV ONE (14:00)
[2020-09-06] MEDS ORDERED: ringers solution, lactated 1000ml IV soln IV ONE (14:00)
[2020-09-06] MEDS ORDERED: ondansetron 4mg rapidly disintigrating tab PO ONE (14:05)
--- NOTE | 2020-09-06 14:45 | NUR ---
PT SITTING ON CHAIR IN TENT, GIVEN ORAL ZOFRAN FOR N/V
[2020-09-06 14:51] LABS: BASOPHILS % (AUTO) 0.2 % (0-1); EOSINOPHILS % (AUTO) 0 % (0-6); HEMATOCRIT 43.2 % (42.0-52.0); HEMOGLOBIN 14.6 g/dl (14.0-17.9); LYMPHOCYTES # (AUTO) 0.5 X10'3 (1.1-4.8); LYMPHOCYTES % (AUTO) 3.6 % (21-51); MEAN CORPUSCULAR HEMOGLOBIN 32.2 PG (27.0-31.0); MEAN CORPUSCULAR HGB CONC 33.7 g/dL (33.0-36.5); MEAN CORPUSCULAR VOLUME 95.5 FL (78-98); MONOCYTES # (AUTO) 0.7 X10'3 (0-0.9); MONOCYTES % (AUTO) 4.8 % (2-12); NEUTROPHILS # (AUTO) 12.8 X10'3 (1.8-7.7); NEUTROPHILS % (AUTO) 91.4 % (42-75); PLATELET COUNT 213 X10'3 (140-440); RED BLOOD COUNT 4.52 X10'6 (4.70-6.10); RED CELL DISTRIBUTION WIDTH 12.9 % (11.5-14.5); WHITE BLOOD COUNT 14.1 X10'3 (4.5-11.0)
--- NOTE | 2020-09-06 15:05 | NUR ---
PT STILL HAS SOME RETCHING AFTER ORAL ZOFRAN AND CONTINUES TO C/O ABD PAIN
[2020-09-06 15:06] LABS: ALANINE AMINOTRANSFERASE 29 U/L (12-78); ALBUMIN 3.4 G/DL (3.4-5.0); ALBUMIN/GLOBULIN RATIO 0.8 (1.1-1.5); ALKALINE PHOSPHATASE 52 IU/L (46-116); ANION GAP 10 (8-16); ASPARTATE AMINO TRANSFERASE 15 U/L (10-37); BILIRUBIN,TOTAL 1.1 MG/DL (0.1-1.0); BLOOD UREA NITROGEN 19 MG/DL (7-18); CALCIUM 8.9 MG/DL (8.5-10.1); CHLORIDE 96 MMOL/L (99-107); CREATININE 1.27 MG/DL (0.60-1.10); GLUCOSE 322 MG/DL (70-104); LIPASE < 50 U/L (73-393); POTASSIUM 4.1 MMOL/L (3.5-5.1); SODIUM 134 MMOL/L (135-145); TOTAL CARBON DIOXIDE 28.5 MMOL/L (24-32); TOTAL PROTEIN 7.9 G/DL (6.4-8.2); eGFR 58 ML/MIN
[2020-09-06] MEDS ORDERED: ONDA4TAB6 PO (15:34)
--- NOTE | 2020-09-06 16:00 | NUR ---
PT CONTINUES VOMITING WILL MOVE PT INSIDE FOR IVF
--- NOTE | 2020-09-06 16:24 | NUR ---
DAVION ARGUETA [phone]
[2020-09-06] MEDS ORDERED: dicyclomine 10 MG capsule PO ONE (18:10)
[2020-09-06] MEDS ORDERED: insulin regular, human 10 units/0.1 ml syringe SQ ONE (18:10)
[2020-09-06] MEDS ORDERED: proCHLORperazine 10 MG/2 ml inj IV ONE (18:10)
[2020-09-06 18:50] VITALS: BP 180/92
== END 2020-09-06 20:02 | disposition home or self-care (01) ==
LOC: ER 13:11
DX: U07.1 COVID-19 (principal); R05 Cough; R11.2 Nausea with vomiting, unspecified; R10.84 Generalized abdominal pain; R50.9 Fever, unspecified; E11.9 Type 2 diabetes mellitus without complications; Z88.0 Allergy status to penicillin; Z88.8 Allergy status to other drugs, medicaments and biological substances; Z79.4 Long term (current) use of insulin; Z79.899 Other long term (current) drug therapy
CPT/HCPCS: 36415; 80053; 82948; 83690; 85025; 96361; 96372; 96374; 96375; 99285; J0780; J1815; J2405; J7120

== ENCOUNTER 2020-09-12 20:39 | Inpatient (IN) | payer MEDICAID ==
[~2020-09-12] VITALS: Ht 175.3 cm; Wt 76.1 kg
[~2020-09-12 20:39] MED LIST changes: +ONDA4TAB6 PO
[2020-09-12 21:51] LABS: BASOPHILS # (AUTO) 0.1 X10'3 (0-0.2); EOSINOPHILS % (AUTO) 0 % (0-6); LYMPHOCYTES # (AUTO) 0.4 X10'3 (1.1-4.8); MONOCYTES # (AUTO) 0.7 X10'3 (0-0.9); PLATELET COUNT 364 X10'3 (140-440)
[2020-09-12 21:52] LABS: BASOPHILS % (AUTO) 0.3 % (0-1); HEMATOCRIT 37.3 % (42.0-52.0); LYMPHOCYTES % (AUTO) 2.4 % (21-51); MEAN CORPUSCULAR HEMOGLOBIN 32.3 PG (27.0-31.0); MEAN CORPUSCULAR HGB CONC 34.8 g/dL (33.0-36.5); MEAN CORPUSCULAR VOLUME 92.7 FL (78-98); MONOCYTES % (AUTO) 4.4 % (2-12); NEUTROPHILS # (AUTO) 15.5 X10'3 (1.8-7.7); NEUTROPHILS % (AUTO) 92.9 % (42-75); RED BLOOD COUNT 4.02 X10'6 (4.70-6.10); RED CELL DISTRIBUTION WIDTH 12.9 % (11.5-14.5); WHITE BLOOD COUNT 16.7 X10'3 (4.5-11.0)
[2020-09-12 22:05] LABS: ALANINE AMINOTRANSFERASE 22 U/L (12-78); ALBUMIN 1.8 G/DL (3.4-5.0); ALBUMIN/GLOBULIN RATIO 0.5 (1.1-1.5); ALKALINE PHOSPHATASE 44 IU/L (46-116); ANION GAP 4 (8-16); ASPARTATE AMINO TRANSFERASE 22 U/L (10-37); BILIRUBIN,TOTAL 0.8 MG/DL (0.1-1.0); BLOOD UREA NITROGEN 13 MG/DL (7-18); BUN/CREATININE RATIO 10.2 (5.4-32.0); CALCIUM 7.5 MG/DL (8.5-10.1); CHLORIDE 93 MMOL/L (99-107); CREATININE 1.28 MG/DL (0.60-1.10); GLUCOSE 147 MG/DL (70-104); POTASSIUM 3.5 MMOL/L (3.5-5.1); SODIUM 128 MMOL/L (135-145); TOTAL CARBON DIOXIDE 30.8 MMOL/L (24-32); TOTAL PROTEIN 5.8 G/DL (6.4-8.2); eGFR 57 ML/MIN
[2020-09-12] MEDS ORDERED: INSU100I31 SQ (22:05)
--- NOTE | 2020-09-12 22:05 | NUR ---
PT HAS THE HICCUPS OVER THE PAST FEW DAYS THAT HAVE NOT STOPPED. STATES HE CAN DRINK "SOME OF THAT GI PREP STUFF THEY GAVE ME FOR COLONOSCOPY" AND SMALL PORTION OF IT AND IT HALPS RELIEF THE HICCUPING FOR A FEW HRS. STATES HE HAS NOT SLEPT IN DAYS D/T THE HICCUPING. STATES HE HAS DEALT WITH HICCUPING EPISODES IN PAST REPORTS SOME NAUSEA. REMAINS ON 15 L NRBWITH SATS 94%. STATES HE IS VERY WEAK AND HIS HAS HAD TO HELP HIM TO BR AND AROUND HOUSE THE PAST FEW DAYS D/T HIS WEAKNESS. AWAITING ER MD.
[2020-09-12] MEDS ORDERED: enoxaparin 100mg/ml syringe SUBCUT ONE (22:20)
[2020-09-12 22:43] LABS: ABG BASE EXCESS 1.2 mmol/L (-2.0-2.0); ABG HCO3 22.9 mmol/L (22.0-26.0); ABG OXYGEN SATURATION 89.3 % (94-97); ABG PCO2 (T) 28.7 mmHg (35.0-48.0); ABG PO2 (T) 51.5 mmHg (75.0-100.0); ALLEN'S TEST POSITIVE; FLOW 15 L/min; FMetHb 0.3 % (0.0-1.5); FO2Hb 88.1 % (94-97); PATIENT TEMPERATURE 37.1; RESPIRATORY RATE 16 b/min; TOTAL HEMOGLOBIN 13.8 G/dl (14.0-18.0)
[2020-09-12 23:10] LABS: C-REACTIVE PROTEIN 11.48 MG/DL (0.0-0.5)
[2020-09-12] MEDS: dexamethasone inj 6 MG in normal saline 50ml IV soln 50 ML IV SCH (23:47)
--- NOTE | 2020-09-12 23:51 | NUR ---
pT'S o2 DROPPED TO LOW 80'S RT AT BEDSIDE TO INCREASE O2. AUGUST AT BEDSIDE FOR EVALUATION AND ADMISSION OF PATIENT. PT NO HAS O2 OF 95% ON HIGH FLOW O2
[2020-09-13] VITALS (13 sets, daily range): BP systolic 94–145; BP diastolic 56–81
--- NOTE | 2020-09-13 | NUR ---
SALAS FLORIAN CALLED SON ROJELIO, AND UPDATED ON STATUS AND ADMISSION. ENCOURAGED TO CALL IN THE AM FOR UPDATE.
--- NOTE | 2020-09-13 00:37 | NUR ---
PT'S O2 SATS 92% ON HIGH FLOW 100% SUPPL O2. RR REMAINS 34-36.
[2020-09-13] MEDS ORDERED: LORazepam 2 mg/ml vial IV ONE (00:55)
--- NOTE | 2020-09-13 00:56 | NUR ---
PT CONTINUES TO REPORT 8 OUT OF 10 PAIN TO HIS ABDOMEN AND IS HAVING INCREASING COUGHIN EPISODES, NON PRODUCTIVE. HE STATES HE FEELS LIKE HE CAN'T CATCH HIS BREATH AND THAT HIS "LUNGS ARE SPASMING". DR. FLOWERS UPDATED AND WILL ORDER ATIVAN.
[2020-09-13] MEDS ORDERED: LORazepam 2 mg/ml vial ONE (01:07)
--- NOTE | 2020-09-13 01:12 | NUR ---
GIVEN ATIVAN 0.5 MG IV . RT PAGED PT SUSTAINING SATS 85% SINICE STARTED C/O "SPASMING IN MY LUNGS". RR 35. RT DANIELA AT BEDSIDE. CHANGED TO 50 LPM O2 AT 1OO% BLENDED HIGH FLOW.
--- NOTE | 2020-09-13 01:46 | NUR ---
MONITOR NOT SHOWING ANY O2 SATS, I WENT INTO ROOM AND PT HAD TAKEN HIS HIGH FLOW O2 OFF AND HIS NRB MASK AND O2 SAT MONITOR. TOLD ME HE WAS "GETTING HOT". PT ALLOWED ME TO PLACE ALL BACK ON HIM AND I TOOK OTHER BLANKETS OFF. PT DID THIS A SECOND TIME APROX 10 MIN LATER. ASSISTANT GOLF COACH AND OTHER STAFF UPDATED TO WATCH O2 SATS OF PT. PER NURSING PRINT SHOP HELPER, PT WILL HAVE A ROOM ASSIGNMENT TONIGHT.
[2020-09-13] MEDS ORDERED: magnesium Cl slow-release 64mg tablet PO PRN (02:00)
[2020-09-13] MEDS ORDERED: potassium Cl 20 mEq SR tablet PO PRN ×2 (02:00)
[2020-09-13] MEDS ORDERED: normal saline 1000ml 1,000 ML IV SCH (02:00)
[2020-09-13] MEDS ORDERED: potassium Cl 40MEQ/1/2NS 520ml 520 ML IV PRN ×2 (02:00)
[2020-09-13] MEDS ORDERED: HYDROcodone/acetaminophen 5mg/325mg tablet PO PRN (02:00)
[2020-09-13] MEDS ORDERED: acetaminophen 325mg tablet PO PRN ×2 (02:00)
[2020-09-13] MEDS ORDERED: magnesium 4gm in 100ml NS 100 ML IV PRN (02:00)
[2020-09-13] MEDS ORDERED: LIDOcaine 2% 10ml TOPICAL JELLY (Urojet) TP ONE (02:00)
[2020-09-13] MEDS ORDERED: metoclopramide 5 mg/ml inj IV ONE (02:00)
[2020-09-13] MEDS ORDERED: magnesium 2GM in 50ml NS 50 ML IV PRN (02:00)
[2020-09-13] MEDS ORDERED: ondansetron/PF 4mg/2ml inj IV PRN (02:00)
[2020-09-13 02:54] LABS: CLARITY,URINE CLEAR (Clear); COLOR,URINE YELLOW (Yellow); GLUCOSE, URINE NEGATIVE (Neg); KETONES,URINE NEGATIVE (Neg); LEUKOCYTE ESTERASE ,URINE NEGATIVE (Neg); NITRITES, URINE NEGATIVE (Neg); OCCULT BLOOD,URINE SMALL (Neg); PROTEIN,URINE >=300 mg/dl (Neg); UROBILINOGEN,URINE 0.2 E.U/dL (0.2-1.0)
--- NOTE | 2020-09-13 02:55 | NUR ---
CARBAJAL PLACEMENT ORDERED. JUD RYAN CALLED TO UPDATED THAT PT IS USINIG URINAL APPROPRIATELY IN THE BED. SHE REPORTS OK TO HOLD ON CARBAJAL PLACEMENT, SHE WAS WORRIED ABOUT PT WANTING TO GET UP TO VOID AND GETTING SOB.
[2020-09-13] MEDS: levoFLOXACIN-Levaquin 500mg/D5 100 ML IV SCH ×2 (03:03→08:36)
[2020-09-13] MEDS: morphine 2 MG/ML inj. syringe IV PRN ×3 (03:04→20:19)
[2020-09-13 03:05] LABS: UA COLLECTION TYPE URINAL
[2020-09-13 03:06] LABS: BACTERIA,URINE NONE SEEN /HPF (Neg); RBC,URINE 0-2 /HPF (0-2); SQUAMOUS EPITHELIAL CELL,UR FEW /LPF (FEW); WBC,URINE NONE SEEN /HPF (0-4)
--- NOTE | 2020-09-13 03:14 | NUR ---
AWAITING IPA. LEVOQUIN INFUSING, MIVF AT 75 HR, JUST GIVEN REGLAN AND MORPHINE. PT WITH SLIGHT NAUSEA AND PAIN TO ABDOMEN.
[2020-09-13] MEDS ORDERED: dextrose 50%-water 50ml dispensing syringe IV PRN ×2 (03:40)
[2020-09-13] MEDS ORDERED: glucagon, human recombinant 1mg kit SUBCUT PRN (03:40)
[2020-09-13] MEDS ORDERED: MESSAGE TO PHARMACY PO ONE (03:40)
[2020-09-13] MEDS ORDERED: dextrose ORAL solution 15 GM/59 ML bottle PO PRN ×2 (03:40)
[2020-09-13 03:54] LABS: HEMOGLOBIN A1C 7.6 % (4.5-6.2)
--- NOTE | 2020-09-13 05:03 | NUR ---
ACCUCHECK 193, AM LABS DRAWN. PT WITH NO FURTHER ABD PAIN AND NO CURRENT HICCUPS. REMAINS ON 15L NRB AND HIGH FLOW O2 AT 100%. RR 28. SATS DROPPING TO LOW 80'S WHEN PT PULLS OFF SUPP O2 TO TAKE SIPS OF WATER.
[2020-09-13 05:43] LABS: ALANINE AMINOTRANSFERASE 26 U/L (12-78); ALBUMIN 1.6 G/DL (3.4-5.0); ALBUMIN/GLOBULIN RATIO 0.4 (1.1-1.5); ALKALINE PHOSPHATASE 48 IU/L (46-116); ANION GAP 7 (8-16); ASPARTATE AMINO TRANSFERASE 28 U/L (10-37); BILIRUBIN,TOTAL 0.8 MG/DL (0.1-1.0); BLOOD UREA NITROGEN 16 MG/DL (7-18); BUN/CREATININE RATIO 14.7 (5.4-32.0); C-REACTIVE PROTEIN 12.76 MG/DL (0.0-0.5); CALCIUM 7.6 MG/DL (8.5-10.1); CHLORIDE 94 MMOL/L (99-107); CREATININE 1.09 MG/DL (0.60-1.10); GLUCOSE 196 MG/DL (70-104); MAGNESIUM 1.9 MG/DL (1.5-2.4); POTASSIUM 3.9 MMOL/L (3.5-5.1); SODIUM 128 MMOL/L (135-145); TOTAL CARBON DIOXIDE 27.1 MMOL/L (24-32); TOTAL PROTEIN 5.6 G/DL (6.4-8.2); eGFR 69 ML/MIN
[2020-09-13 05:45] LABS: D-DIMER 2.12 MG/L FEU (0-0.50); PARTIAL THROMBOPLASTIN TIME 36 SECONDS (22-32)
[2020-09-13 05:47] LABS: BASOPHILS % (AUTO) 0 % (0-1); EOSINOPHILS % (AUTO) 0 % (0-6); HEMOGLOBIN 12.2 g/dl (14.0-17.9); LYMPHOCYTES # (AUTO) 0.3 X10'3 (1.1-4.8); LYMPHOCYTES % (AUTO) 1.2 % (21-51); MEAN CORPUSCULAR HEMOGLOBIN 31.6 PG (27.0-31.0); MEAN CORPUSCULAR HGB CONC 33.9 g/dL (33.0-36.5); MEAN CORPUSCULAR VOLUME 93.1 FL (78-98); MEAN PLATELET VOLUME 7.4 FL (7.4-10.4); MONOCYTES # (AUTO) 0.5 X10'3 (0-0.9); MONOCYTES % (AUTO) 2.2 % (2-12); NEUTROPHILS # (AUTO) 23.7 X10'3 (1.8-7.7); NEUTROPHILS % (AUTO) 96.6 % (42-75); PLATELET COUNT 367 X10'3 (140-440); RED BLOOD COUNT 3.87 X10'6 (4.70-6.10); RED CELL DISTRIBUTION WIDTH 12.7 % (11.5-14.5); WHITE BLOOD COUNT 24.5 X10'3 (4.5-11.0)
[2020-09-13 06:40] LABS: PLATELET ESTIMATE NORMAL; TOTAL CELLS COUNTED 100
[2020-09-13 07:27] LABS: PLATELET COUNT 367 X10'3 (140-440)
--- NOTE | 2020-09-13 07:30 | NUR ---
Note [email or web address] in EDM - 09/13/20 at 0750 by [email or web address] EXPLAINED TO PATIENT SHE WILL BE ON A MENTAL HEALTH HOLD AND NEED OF A US AND LABS DRAWN. PT WALKED TO BATHROOM WITH ASSISTANCE BUT UNABLE TO GIVE UA. LABS DRAWN AND WHEN WALKED OUT OF ROOM THE PATIENT RAN OUT OF THE ED. SECURITY CALLED BUT PT WAS SECURED AND BROUGHT BACK TO ED WITHOUT INCIDENET. PT CHANGED INTO [facility] AND ALL BELONGINGS TAKEN FROM PATIENT.
[2020-09-13] MEDS ORDERED: dexamethasone 4mg/ml inj IV SCH (08:00)
--- NOTE | 2020-09-13 08:34 | NUR ---
DR GILLESPIE AT BEDSIDE
[2020-09-13] MEDS: pantoprazole 40 MG vial IV SCH (08:35)
[2020-09-13] MEDS: enoxaparin 60mg/0.6ml syringe SUBCUT SCH ×2 (08:36→20:00)
[2020-09-13] MEDS: dexamethasone inj 6 MG in normal saline 50ml IV soln 50 ML IV SCH (08:36)
[2020-09-13] MEDS: docusate sod 100mg capsule PO SCH ×2 (08:37→20:00)
[2020-09-13] MEDS: insulin glargine (Lantus) pen - multi-dose SQ SCH (08:51)
[2020-09-13] MEDS ORDERED: REMDESIVIR 100MG inj. 200 MG in normal saline 100ml IV soln 100 ML IV ONE (09:45)
[2020-09-13] MEDS: linezolid 600mg tablet PO SCH ×2 (11:28→20:00)
[2020-09-13] MEDS: insulin Lispro (HumaLOG) vial - multi-dose SQ SCH (14:08)
[2020-09-13] MEDS: methylPREDNISolone sod succ 125mg/2ml vial IV SCH ×2 (16:12→23:13)
[2020-09-13] MEDS: HYDROcodone/acetaminophen 10/325mg tab PO PRN (23:52)
[2020-09-14] VITALS (24 sets, daily range): BP systolic 102–137; BP diastolic 57–76
[2020-09-14 04:27] LABS: BASOPHILS % (AUTO) 0 % (0-1); EOSINOPHILS % (AUTO) 0 % (0-6); HEMATOCRIT 34.9 % (42.0-52.0); HEMOGLOBIN 11.8 g/dl (14.0-17.9); LYMPHOCYTES # (AUTO) 0.5 X10'3 (1.1-4.8); LYMPHOCYTES % (AUTO) 2.8 % (21-51); MEAN CORPUSCULAR HEMOGLOBIN 31.5 PG (27.0-31.0); MEAN CORPUSCULAR HGB CONC 33.8 g/dL (33.0-36.5); MEAN CORPUSCULAR VOLUME 92.9 FL (78-98); MEAN PLATELET VOLUME 7.5 FL (7.4-10.4); MONOCYTES # (AUTO) 0.4 X10'3 (0-0.9); MONOCYTES % (AUTO) 2.5 % (2-12); NEUTROPHILS # (AUTO) 16.6 X10'3 (1.8-7.7); NEUTROPHILS % (AUTO) 94.7 % (42-75); PLATELET COUNT 419 X10'3 (140-440); RED BLOOD COUNT 3.76 X10'6 (4.70-6.10); WHITE BLOOD COUNT 17.6 X10'3 (4.5-11.0)
[2020-09-14 04:31] LABS: D-DIMER 1.56 MG/L FEU (0-0.50)
[2020-09-14 04:36] LABS: ALANINE AMINOTRANSFERASE 23 U/L (12-78); ALBUMIN 1.6 G/DL (3.4-5.0); ALBUMIN/GLOBULIN RATIO 0.4 (1.1-1.5); ALKALINE PHOSPHATASE 52 IU/L (46-116); ANION GAP 8 (8-16); ASPARTATE AMINO TRANSFERASE 15 U/L (10-37); BILIRUBIN,TOTAL 0.6 MG/DL (0.1-1.0); BLOOD UREA NITROGEN 25 MG/DL (7-18); BUN/CREATININE RATIO 22.9 (5.4-32.0); C-REACTIVE PROTEIN 15.74 MG/DL (0.0-0.5); CALCIUM 7.8 MG/DL (8.5-10.1); CHLORIDE 97 MMOL/L (99-107); CREATININE 1.09 MG/DL (0.60-1.10); GLUCOSE 270 MG/DL (70-104); MAGNESIUM 2.2 MG/DL (1.5-2.4); PHOSPHORUS 3.2 MG/DL (2.3-4.5); POTASSIUM 4.3 MMOL/L (3.5-5.1); SODIUM 132 MMOL/L (135-145); TOTAL CARBON DIOXIDE 26.8 MMOL/L (24-32); TOTAL PROTEIN 5.9 G/DL (6.4-8.2); eGFR 69 ML/MIN
[2020-09-14] MEDS: docusate sod 100mg capsule PO SCH ×2 (07:25→19:47)
[2020-09-14] MEDS: enoxaparin 60mg/0.6ml syringe SUBCUT SCH ×2 (07:25→19:44)
[2020-09-14] MEDS: methylPREDNISolone sod succ 125mg/2ml vial IV SCH ×3 (07:25→19:44)
[2020-09-14] MEDS: REMDESIVIR 100MG inj. 100 MG in normal saline 100ml IV soln 100 ML IV SCH (07:26)
[2020-09-14] MEDS: linezolid 600mg tablet PO SCH ×2 (07:26→19:47)
[2020-09-14] MEDS: pantoprazole 40 MG vial IV SCH (07:44)
[2020-09-14] MEDS: HYDROcodone/acetaminophen 10/325mg tab PO PRN ×3 (07:45→23:53)
[2020-09-14] MEDS: insulin glargine (Lantus) pen - multi-dose SQ SCH (08:38)
[2020-09-14] MEDS: insulin Lispro (HumaLOG) vial - multi-dose SQ SCH ×3 (08:50→17:59)
[2020-09-14] MEDS ORDERED: levoFLOXACIN 750MG TABLET PO SCH (11:00)
[2020-09-14] MEDS: cefepime 1GM/NS ADD-VANTAGE 100 ML IV SCH ×3 (11:20→23:15)
--- NOTE | 2020-09-14 14:18 | NUR ---
Pt with T2DM, current A1c is 7.6%. Pt admit with respiratory failure and COVID-19, currently in airborne precautions on HFNC. Pt receiving Zyvox. Pt documented as A/O x 3 and confused, pt would benefit from low tyramine nutrition therapy and DM education once more stable. Pt on a full liquid diet documented to be refusing meals with the exception of 100% PO intake of milk at breakfast this morning. D/w MD concern for patient's poor PO intake. Per MD patient's diet may be advanced to solid food if pt doesn't desaturate on weaning the HFNC during eating, d/w RN. Recommend diet advancement to CHO controlled as medically indicated in view of T2DM and current BG range 146-343 mg/dL during admit while receiving routine Solumedrol. Will continue to follow closely and make recommendations as appropriate. Addendum: 09/14/20 at [address] Amended: Links added.
--- NOTE | 2020-09-14 18:00 | NUR ---
Patient in room CICU 2006. I have received report from YESENIA MARINA and had the opportunity to ask questions and assume patient care.
[2020-09-14] MEDS: lactobacillus rhamnosus 10,000 MMU CELLS/CAPSULE PO SCH (19:47)
[2020-09-14] MEDS: ondansetron/PF 4mg/2ml inj IV PRN (20:56)
[2020-09-15] VITALS (23 sets, daily range): BP systolic 117–157; BP diastolic 61–86
--- NOTE | 2020-09-15 00:37 | NUR ---
RT PAGED REGARDING PATIENT EXPERIENCING INCREASED SOB, COUGHING AND WHEEZES HEARD DURING AUSCULTATION. PATIENT: CHRISTI HUYNH. RM#[id number]. HE IS EXPERIENCING INCREASED SOB AND COUGHING, I AUSCULTATED ANTERIOR CHEST AND WHEEZING IS PRESENT. REQUESTING PRN ALBUTEROL INHALER PRETTY PLEASE. THANK YOU
[2020-09-15] MEDS: ALBUTEROL INHALER 1 PUFF/90 MCG INHALER IH PRN (00:59)
--- NOTE | 2020-09-15 01:26 | NUR ---
Aramis Escobar NP called re: patients coughing fits lasing greater than 1 minute. Patient's oxygen desaturates to 60's% and takes a long time to recover. Cough is productive. Asked about the possibility for a medication to treat the cough. No new orders at this time.
[2020-09-15] MEDS: methylPREDNISolone sod succ 125mg/2ml vial IV SCH ×4 (02:11→19:27)
--- NOTE | 2020-09-15 02:33 | NUR ---
Throughout my shift patient is having coughing fits, all have been productive thus far. Sputum is frothy, clear with greyish, green chunks. During these fits patients Spo2 decreases to the low 70's, so far the lowest Spo2 has been 69%. Once non-rebreather is reapplied after fit Spo2 increases within adequate range. He struggles to maintain Spo2 above 90% without non-rebreather on top of HF MD VIRY has been notified.
[2020-09-15] MEDS: ondansetron/PF 4mg/2ml inj IV PRN (04:12)
[2020-09-15] MEDS: HYDROcodone/acetaminophen 10/325mg tab PO PRN (04:27)
--- NOTE | 2020-09-15 06:12 | NUR ---
Problems reprioritized. Patient report given, questions answered & plan of care reviewed with STEPHANIE MARINA.
[2020-09-15 06:20] LABS: HEMOGLOBIN 12.2 g/dl (14.0-17.9)
[2020-09-15 06:23] LABS: BASOPHILS % (AUTO) 0 % (0-1); EOSINOPHILS % (AUTO) 0 % (0-6); HEMATOCRIT 34.8 % (42.0-52.0); LYMPHOCYTES # (AUTO) 0.4 X10'3 (1.1-4.8); LYMPHOCYTES % (AUTO) 1.2 % (21-51); MEAN CORPUSCULAR HEMOGLOBIN 32.1 PG (27.0-31.0); MEAN CORPUSCULAR HGB CONC 34.9 g/dL (33.0-36.5); MEAN PLATELET VOLUME 7.2 FL (7.4-10.4); MONOCYTES # (AUTO) 0.8 X10'3 (0-0.9); MONOCYTES % (AUTO) 2.5 % (2-12); NEUTROPHILS # (AUTO) 29.5 X10'3 (1.8-7.7); NEUTROPHILS % (AUTO) 96.3 % (42-75); PLATELET COUNT 583 X10'3 (140-440); RED BLOOD COUNT 3.78 X10'6 (4.70-6.10); RED CELL DISTRIBUTION WIDTH 13.1 % (11.5-14.5)
[2020-09-15 06:28] LABS: D-DIMER 2.39 MG/L FEU (0-0.50)
[2020-09-15 06:33] LABS: WHITE BLOOD COUNT 30.6 X10'3 (4.5-11.0)
[2020-09-15 06:43] LABS: ALANINE AMINOTRANSFERASE 21 U/L (12-78); ALBUMIN 1.7 G/DL (3.4-5.0); ALBUMIN/GLOBULIN RATIO 0.4 (1.1-1.5); ALKALINE PHOSPHATASE 72 IU/L (46-116); ANION GAP 7 (8-16); ASPARTATE AMINO TRANSFERASE 13 U/L (10-37); BILIRUBIN,TOTAL 0.6 MG/DL (0.1-1.0); BLOOD UREA NITROGEN 29 MG/DL (7-18); BUN/CREATININE RATIO 28.7 (5.4-32.0); C-REACTIVE PROTEIN 7.49 MG/DL (0.0-0.5); CALCIUM 7.8 MG/DL (8.5-10.1); CHLORIDE 98 MMOL/L (99-107); CREATININE 1.01 MG/DL (0.60-1.10); GLUCOSE 209 MG/DL (70-104); MAGNESIUM 2.5 MG/DL (1.5-2.4); PHOSPHORUS 2.5 MG/DL (2.3-4.5); POTASSIUM 3.9 MMOL/L (3.5-5.1); SODIUM 133 MMOL/L (135-145); TOTAL CARBON DIOXIDE 28.1 MMOL/L (24-32); eGFR 75 ML/MIN
[2020-09-15 07:12] LABS: PLATELET ESTIMATE INCREASED; TOTAL CELLS COUNTED 100
[2020-09-15] MEDS: cefepime 1GM/NS ADD-VANTAGE 100 ML IV SCH ×2 (07:37→17:11)
[2020-09-15] MEDS: docusate sod 100mg capsule PO SCH ×2 (07:38→19:26)
[2020-09-15] MEDS: lactobacillus rhamnosus 10,000 MMU CELLS/CAPSULE PO SCH ×2 (07:38→19:26)
[2020-09-15] MEDS: enoxaparin 60mg/0.6ml syringe SUBCUT SCH ×2 (07:39→19:27)
[2020-09-15] MEDS: pantoprazole 40 MG vial IV SCH (07:39)
[2020-09-15] MEDS: REMDESIVIR 100MG inj. 100 MG in normal saline 100ml IV soln 100 ML IV SCH (07:43)
[2020-09-15] MEDS: insulin glargine (Lantus) pen - multi-dose SQ SCH (08:12)
[2020-09-15] MEDS: linezolid 600mg tablet PO SCH ×2 (08:32→19:26)
[2020-09-15] MEDS: insulin Lispro (HumaLOG) vial - multi-dose SQ SCH (12:25)
--- NOTE | 2020-09-15 18:16 | NUR ---
sbar report given to orly owens, emar reviewed, questions answered.
[2020-09-15] MEDS: LORazepam 2 mg/ml vial IV PRN (21:04)
[2020-09-16] VITALS (25 sets, daily range): BP systolic 110–161; BP diastolic 58–90
[2020-09-16] MEDS: cefepime 1GM/NS ADD-VANTAGE 100 ML IV SCH ×3 (00:15→16:10)
[2020-09-16] MEDS: methylPREDNISolone sod succ 125mg/2ml vial IV SCH ×4 (02:27→20:09)
[2020-09-16] MEDS: LORazepam 2 mg/ml vial IV PRN (02:28)
--- NOTE | 2020-09-16 06:26 | NUR ---
Patient in room CICU 2006. I have received report from Jani MARINA and had the opportunity to ask questions and assume patient care.
[2020-09-16 06:30] LABS: D-DIMER 2.85 MG/L FEU (0-0.50)
[2020-09-16 06:35] LABS: EOSINOPHILS % (AUTO) 0 % (0-6); LYMPHOCYTES # (AUTO) 0.4 X10'3 (1.1-4.8); MEAN PLATELET VOLUME 7.2 FL (7.4-10.4); MONOCYTES # (AUTO) 0.7 X10'3 (0-0.9)
[2020-09-16 06:41] LABS: ALANINE AMINOTRANSFERASE 27 U/L (12-78); ALBUMIN 1.8 G/DL (3.4-5.0); ALBUMIN/GLOBULIN RATIO 0.5 (1.1-1.5); ALKALINE PHOSPHATASE 185 IU/L (46-116); ANION GAP 5 (8-16); ASPARTATE AMINO TRANSFERASE 22 U/L (10-37); BILIRUBIN,TOTAL 0.9 MG/DL (0.1-1.0); BLOOD UREA NITROGEN 27 MG/DL (7-18); BUN/CREATININE RATIO 28.7 (5.4-32.0); C-REACTIVE PROTEIN 3.49 MG/DL (0.0-0.5); CALCIUM 7.9 MG/DL (8.5-10.1); CHLORIDE 102 MMOL/L (99-107); CREATININE 0.94 MG/DL (0.60-1.10); GLUCOSE 180 MG/DL (70-104); MAGNESIUM 2.6 MG/DL (1.5-2.4); PHOSPHORUS 2.5 MG/DL (2.3-4.5); POTASSIUM 4.5 MMOL/L (3.5-5.1); SODIUM 137 MMOL/L (135-145); TOTAL CARBON DIOXIDE 30.5 MMOL/L (24-32); TOTAL PROTEIN 5.8 G/DL (6.4-8.2); eGFR 82 ML/MIN
[2020-09-16 06:43] LABS: BASOPHILS % (AUTO) 0.2 % (0-1); HEMATOCRIT 35.6 % (42.0-52.0); HEMOGLOBIN 12.1 g/dl (14.0-17.9); LYMPHOCYTES % (AUTO) 1.8 % (21-51); MEAN CORPUSCULAR HEMOGLOBIN 31.8 PG (27.0-31.0); MEAN CORPUSCULAR VOLUME 93.6 FL (78-98); MONOCYTES % (AUTO) 3.3 % (2-12); NEUTROPHILS # (AUTO) 20.3 X10'3 (1.8-7.7); NEUTROPHILS % (AUTO) 94.7 % (42-75); PLATELET COUNT 612 X10'3 (140-440); WHITE BLOOD COUNT 21.5 X10'3 (4.5-11.0)
[2020-09-16] MEDS: docusate sod 100mg capsule PO SCH ×2 (07:33→20:09)
[2020-09-16] MEDS: linezolid 600mg tablet PO SCH ×2 (07:33→20:09)
[2020-09-16] MEDS: lactobacillus rhamnosus 10,000 MMU CELLS/CAPSULE PO SCH ×2 (07:33→20:09)
[2020-09-16] MEDS: pantoprazole 40 MG vial IV SCH (07:33)
[2020-09-16] MEDS: enoxaparin 60mg/0.6ml syringe SUBCUT SCH ×2 (07:34→20:10)
[2020-09-16] MEDS: HYDROcodone/acetaminophen 10/325mg tab PO PRN (07:59)
[2020-09-16] MEDS: ondansetron/PF 4mg/2ml inj IV PRN (08:12)
[2020-09-16] MEDS: insulin glargine (Lantus) pen - multi-dose SQ SCH (09:06)
[2020-09-16] MEDS: insulin Lispro (HumaLOG) vial - multi-dose SQ SCH ×2 (09:06→13:05)
[2020-09-16] MEDS: REMDESIVIR 100MG inj. 100 MG in normal saline 100ml IV soln 100 ML IV SCH (09:11)
--- NOTE | 2020-09-16 18:17 | NUR ---
Problems reprioritized. Patient report given, questions answered & plan of care reviewed with Terri MARINA.
--- NOTE | 2020-09-16 18:18 | NUR ---
Patient in room CICU 2005. I have received report from SALAS Abrams and had the opportunity to ask questions and assume patient care. Patient awake and appropriate, resting comfortably.
[2020-09-17] VITALS (24 sets, daily range): BP systolic 124–165; BP diastolic 59–91
[2020-09-17] MEDS: cefepime 1GM/NS ADD-VANTAGE 100 ML IV SCH ×4 (00:14→23:29)
[2020-09-17] MEDS: methylPREDNISolone sod succ 125mg/2ml vial IV SCH ×4 (02:30→20:21)
--- NOTE | 2020-09-17 05:20 | NUR ---
Patient very sullen throughout shift, advised me in the beginning that he has been getting back rubs three or so times a shift for his back pain, anxiety and comfort. I let him know I wasn't comfortable with this and it really is not protocol, so I wouldn't be doing that. I have offered to give him pain medication and help him reposition, but he declined. He complained to the baseball glove stuffer about this also.
--- NOTE | 2020-09-17 06:08 | NUR ---
Problems reprioritized. Patient report given, questions answered & plan of care reviewed with SALAS Abrams.
--- NOTE | 2020-09-17 06:16 | NUR ---
Patient in room CICU 2006. I have received report from Terri MARINA and had the opportunity to ask questions and assume patient care.
[2020-09-17 06:27] LABS: BASOPHILS % (AUTO) 0.2 % (0-1); EOSINOPHILS % (AUTO) 0 % (0-6); HEMATOCRIT 35.2 % (42.0-52.0); HEMOGLOBIN 11.8 g/dl (14.0-17.9); LYMPHOCYTES # (AUTO) 0.4 X10'3 (1.1-4.8); LYMPHOCYTES % (AUTO) 1.7 % (21-51); MEAN CORPUSCULAR HEMOGLOBIN 31.4 PG (27.0-31.0); MEAN CORPUSCULAR HGB CONC 33.5 g/dL (33.0-36.5); MEAN CORPUSCULAR VOLUME 93.7 FL (78-98); MONOCYTES # (AUTO) 0.5 X10'3 (0-0.9); MONOCYTES % (AUTO) 2.6 % (2-12); NEUTROPHILS # (AUTO) 19.7 X10'3 (1.8-7.7); NEUTROPHILS % (AUTO) 95.5 % (42-75); PLATELET COUNT 569 X10'3 (140-440); RED BLOOD COUNT 3.75 X10'6 (4.70-6.10); WHITE BLOOD COUNT 20.6 X10'3 (4.5-11.0)
[2020-09-17 06:44] LABS: ALANINE AMINOTRANSFERASE 30 U/L (12-78); ALBUMIN 1.7 G/DL (3.4-5.0); ALBUMIN/GLOBULIN RATIO 0.5 (1.1-1.5); ALKALINE PHOSPHATASE 86 IU/L (46-116); ANION GAP 4 (8-16); ASPARTATE AMINO TRANSFERASE 19 U/L (10-37); BILIRUBIN,TOTAL 0.8 MG/DL (0.1-1.0); BLOOD UREA NITROGEN 24 MG/DL (7-18); BUN/CREATININE RATIO 28.9 (5.4-32.0); CALCIUM 7.6 MG/DL (8.5-10.1); CHLORIDE 103 MMOL/L (99-107); CREATININE 0.83 MG/DL (0.60-1.10); GLUCOSE 61 MG/DL (70-104); MAGNESIUM 2.3 MG/DL (1.5-2.4); PHOSPHORUS 2.3 MG/DL (2.3-4.5); POTASSIUM 4.5 MMOL/L (3.5-5.1); SODIUM 137 MMOL/L (135-145); TOTAL CARBON DIOXIDE 30.3 MMOL/L (24-32); TOTAL PROTEIN 5.4 G/DL (6.4-8.2); eGFR > 90 ML/MIN
[2020-09-17 06:48] LABS: D-DIMER 5.77 MG/L FEU (0-0.50)
[2020-09-17] MEDS: lactobacillus rhamnosus 10,000 MMU CELLS/CAPSULE PO SCH ×2 (07:21→20:21)
[2020-09-17] MEDS: enoxaparin 60mg/0.6ml syringe SUBCUT SCH ×2 (07:21→20:21)
[2020-09-17] MEDS: linezolid 600mg tablet PO SCH ×2 (07:21→20:21)
[2020-09-17] MEDS: pantoprazole 40 MG vial IV SCH (07:21)
[2020-09-17] MEDS: docusate sod 100mg capsule PO SCH ×2 (07:22→20:21)
[2020-09-17] MEDS: LORazepam 2 mg/ml vial IV PRN (07:49)
[2020-09-17] MEDS: insulin glargine (Lantus) pen - multi-dose SQ SCH (08:00)
--- NOTE | 2020-09-17 08:16 | NUR ---
Spoke with Dr. Linn and informed him that D-Dimer increased to 5.77. No new orders at this time. Dr. Linn in to see patient.
[2020-09-17] MEDS: REMDESIVIR 100MG inj. 100 MG in normal saline 100ml IV soln 100 ML IV SCH (08:49)
[2020-09-17] MEDS ORDERED: furosemide 20 MG/2 ML vial IV ONE (09:00)
--- NOTE | 2020-09-17 09:00 | NUR ---
Upon entering the room, patient addressed me as "cristi." Stated to the patient that this is not my name and that it is inappropriate. Patient stated, "I need a back rub with lotion and its the only thing that will help with the pain. And don't worry, nothing works down there so there's no need to be embarrassed." Offered patient a pain pill and stated that, "was inappropriate, and that lotion could be applied to back, but that I don't feel comfortable giving a back rub." Patient unhappy and stated he will be talking to the doctor.
[2020-09-17] MEDS: HYDROcodone/acetaminophen 10/325mg tab PO PRN (10:02)
[2020-09-17] MEDS: insulin Lispro (HumaLOG) vial - multi-dose SQ SCH ×2 (10:05→13:42)
--- NOTE | 2020-09-17 10:26 | NUR ---
Updated patient's Aishwarya over the phone on patient's condition.
[2020-09-17 12:06] LABS: LACTATE DEHYDROGENASE 562 U/L (85-227)
--- NOTE | 2020-09-17 16:11 | NUR ---
Patient laid in partial prone position for a total of 45mins, SaO2 improved to 100% while in that position. Patient stated he wants to lay on back now and stated he will try again after dinner.
--- NOTE | 2020-09-17 16:38 | NUR ---
DM consult re: pt not happy with food, attempted phone call however pt did not answer phone, will attempt again. Addendum: 09/17/20 at [address] Amended: Links added.
--- NOTE | 2020-09-17 18:24 | NUR ---
Problems reprioritized. Patient report given, questions answered & plan of care reviewed with Jani MARINA.
[2020-09-18] VITALS (23 sets, daily range): BP systolic 121–153; BP diastolic 56–85
[2020-09-18] MEDS: LORazepam 2 mg/ml vial IV PRN (00:01)
[2020-09-18] MEDS: methylPREDNISolone sod succ 125mg/2ml vial IV SCH (01:51)
[2020-09-18 06:43] LABS: BASOPHILS # (AUTO) 0.1 X10'3 (0-0.2); BASOPHILS % (AUTO) 0.5 % (0-1); EOSINOPHILS % (AUTO) 0.1 % (0-6); HEMATOCRIT 35.6 % (42.0-52.0); HEMOGLOBIN 12.2 g/dl (14.0-17.9); LYMPHOCYTES # (AUTO) 0.3 X10'3 (1.1-4.8); LYMPHOCYTES % (AUTO) 1.6 % (21-51); MEAN CORPUSCULAR HEMOGLOBIN 31.9 PG (27.0-31.0); MEAN CORPUSCULAR HGB CONC 34.1 g/dL (33.0-36.5); MEAN CORPUSCULAR VOLUME 93.5 FL (78-98); MONOCYTES # (AUTO) 0.3 X10'3 (0-0.9); MONOCYTES % (AUTO) 1.8 % (2-12); NEUTROPHILS # (AUTO) 16.9 X10'3 (1.8-7.7); PLATELET COUNT 548 X10'3 (140-440); RED BLOOD COUNT 3.81 X10'6 (4.70-6.10); RED CELL DISTRIBUTION WIDTH 13.1 % (11.5-14.5); WHITE BLOOD COUNT 17.6 X10'3 (4.5-11.0)
[2020-09-18 06:54] LABS: D-DIMER 3.67 MG/L FEU (0-0.50)
[2020-09-18 06:56] LABS: ALANINE AMINOTRANSFERASE 26 U/L (12-78); ALBUMIN 1.8 G/DL (3.4-5.0); ALBUMIN/GLOBULIN RATIO 0.5 (1.1-1.5); ALKALINE PHOSPHATASE 83 IU/L (46-116); ANION GAP 4 (8-16); ASPARTATE AMINO TRANSFERASE 11 U/L (10-37); BLOOD UREA NITROGEN 24 MG/DL (7-18); BUN/CREATININE RATIO 30.8 (5.4-32.0); CALCIUM 7.5 MG/DL (8.5-10.1); CHLORIDE 101 MMOL/L (99-107); CREATININE 0.78 MG/DL (0.60-1.10); GLUCOSE 176 MG/DL (70-104); MAGNESIUM 2.2 MG/DL (1.5-2.4); PHOSPHORUS 2.6 MG/DL (2.3-4.5); POTASSIUM 5.1 MMOL/L (3.5-5.1); SODIUM 135 MMOL/L (135-145); TOTAL CARBON DIOXIDE 30.2 MMOL/L (24-32); TOTAL PROTEIN 5.4 G/DL (6.4-8.2); eGFR > 90 ML/MIN
[2020-09-18] MEDS: cefepime 1GM/NS ADD-VANTAGE 100 ML IV SCH ×3 (08:03→22:53)
[2020-09-18] MEDS: enoxaparin 60mg/0.6ml syringe SUBCUT SCH ×2 (08:03→19:04)
[2020-09-18] MEDS: linezolid 600mg tablet PO SCH ×2 (08:04→19:04)
[2020-09-18] MEDS: pantoprazole 40 MG vial IV SCH (08:04)
[2020-09-18] MEDS: docusate sod 100mg capsule PO SCH ×2 (08:04→19:03)
[2020-09-18] MEDS: lactobacillus rhamnosus 10,000 MMU CELLS/CAPSULE PO SCH ×2 (08:05→19:03)
[2020-09-18] MEDS: insulin Lispro (HumaLOG) vial - multi-dose SQ SCH (08:31)
[2020-09-18] MEDS: insulin glargine (Lantus) pen - multi-dose SQ SCH (08:32)
[2020-09-18] MEDS: methylPREDNISolone sod succ/PF 40mg inj. IV SCH ×3 (11:58→22:53)
[2020-09-18] MEDS ORDERED: furosemide 20 MG/2 ML vial IV ONE (14:20)
--- NOTE | 2020-09-18 15:36 | NUR ---
DM consult re: pt not happy with food, attempted phone call again morning of 09/18 and in the afternoon; however pt did not answer phone, will attempt again. Spoke with bedside RN and phone was not in reach, will await phone call from patient after phone is moved closer. Not eating well, likely d/t not liking the food, average PO intake 0-25% with refusals. Pt is lying prone for 2 hours TID. Last BM 09/11, receiving colace BID. Constipation may also be impacting appetite. Recommend: 1. Continue carb controlled diet 2. Bowel care as needed 3. Encourage PO Intake 4. Weight per rx Addendum: 09/18/20 at [address] Amended: Links added.
[2020-09-19] VITALS (19 sets, daily range): BP systolic 115–151; BP diastolic 58–79
[2020-09-19] MEDS: LORazepam 2 mg/ml vial IV PRN (02:21)
[2020-09-19 03:33] LABS: BASOPHILS % (AUTO) 0.1 % (0-1); EOSINOPHILS # (AUTO) 0.1 X10'3 (0-0.9); EOSINOPHILS % (AUTO) 0.6 % (0-6); HEMATOCRIT 35.7 % (42.0-52.0); HEMOGLOBIN 12.1 g/dl (14.0-17.9); LYMPHOCYTES % (AUTO) 5.5 % (21-51); MEAN CORPUSCULAR HEMOGLOBIN 31.8 PG (27.0-31.0); MEAN CORPUSCULAR VOLUME 93.8 FL (78-98); MEAN PLATELET VOLUME 6.7 FL (7.4-10.4); MONOCYTES # (AUTO) 0.5 X10'3 (0-0.9); MONOCYTES % (AUTO) 2.5 % (2-12); NEUTROPHILS # (AUTO) 16.8 X10'3 (1.8-7.7); NEUTROPHILS % (AUTO) 91.3 % (42-75); PLATELET COUNT 576 X10'3 (140-440); RED BLOOD COUNT 3.81 X10'6 (4.70-6.10); WHITE BLOOD COUNT 18.4 X10'3 (4.5-11.0)
[2020-09-19 03:43] LABS: ALANINE AMINOTRANSFERASE 23 U/L (12-78); ALBUMIN 1.8 G/DL (3.4-5.0); ALBUMIN/GLOBULIN RATIO 0.5 (1.1-1.5); ALKALINE PHOSPHATASE 79 IU/L (46-116); ANION GAP 4 (8-16); ASPARTATE AMINO TRANSFERASE 9 U/L (10-37); BILIRUBIN,TOTAL 0.8 MG/DL (0.1-1.0); BLOOD UREA NITROGEN 28 MG/DL (7-18); BUN/CREATININE RATIO 33.3 (5.4-32.0); C-REACTIVE PROTEIN 1.38 MG/DL (0.0-0.5); CALCIUM 7.7 MG/DL (8.5-10.1); CHLORIDE 101 MMOL/L (99-107); CREATININE 0.84 MG/DL (0.60-1.10); D-DIMER 4.04 MG/L FEU (0-0.50); GLUCOSE 138 MG/DL (70-104); MAGNESIUM 1.9 MG/DL (1.5-2.4); PHOSPHORUS 2.8 MG/DL (2.3-4.5); POTASSIUM 4.3 MMOL/L (3.5-5.1); SODIUM 135 MMOL/L (135-145); TOTAL PROTEIN 5.2 G/DL (6.4-8.2); eGFR > 90 ML/MIN
[2020-09-19] MEDS: cefepime 1GM/NS ADD-VANTAGE 100 ML IV SCH ×3 (08:09→23:55)
[2020-09-19] MEDS: lactobacillus rhamnosus 10,000 MMU CELLS/CAPSULE PO SCH ×2 (08:11→20:32)
[2020-09-19] MEDS: linezolid 600mg tablet PO SCH (08:11)
[2020-09-19] MEDS: docusate sod 100mg capsule PO SCH ×2 (08:11→20:32)
[2020-09-19] MEDS: enoxaparin 60mg/0.6ml syringe SUBCUT SCH ×2 (08:12→20:33)
[2020-09-19] MEDS: methylPREDNISolone sod succ/PF 40mg inj. IV SCH ×3 (08:12→23:54)
[2020-09-19] MEDS: pantoprazole 40 MG vial IV SCH (08:12)
--- NOTE | 2020-09-19 12:30 | NUR ---
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 Attempted to obtain food preferences, stated that he liked the chocolate pudding and tea. Addendum: 09/19/20 at [address] Amended: Links added.
[2020-09-19] MEDS ORDERED: furosemide 20 MG/2 ML vial IV SCH (13:00)
[2020-09-19] MEDS: insulin glargine (Lantus) pen - multi-dose SQ SCH (16:45)
--- NOTE | 2020-09-19 17:15 | NUR ---
I have received patient report from Cortes strong RN
--- NOTE | 2020-09-19 18:33 | NUR ---
patient report given to Tessy MARINA
[2020-09-19] MEDS: furosemide 20 MG/2 ML vial IV SCH (20:32)
[2020-09-20] MEDS: ALBUTEROL INHALER 1 PUFF/90 MCG INHALER IH PRN (00:07)
[2020-09-20] MEDS: LORazepam 2 mg/ml vial IV PRN (00:38)
[2020-09-20 02:00] VITALS: BP 143/83
[2020-09-20 05:00] VITALS: BP 139/80
[2020-09-20 06:50] LABS: BASOPHILS % (AUTO) 0.3 % (0-1); EOSINOPHILS % (AUTO) 0.1 % (0-6); HEMATOCRIT 36.4 % (42.0-52.0); HEMOGLOBIN 12.3 g/dl (14.0-17.9); LYMPHOCYTES # (AUTO) 0.4 X10'3 (1.1-4.8); LYMPHOCYTES % (AUTO) 3.5 % (21-51); MEAN CORPUSCULAR HEMOGLOBIN 31.6 PG (27.0-31.0); MEAN CORPUSCULAR HGB CONC 33.7 g/dL (33.0-36.5); MEAN CORPUSCULAR VOLUME 93.8 FL (78-98); MEAN PLATELET VOLUME 6.9 FL (7.4-10.4); MONOCYTES # (AUTO) 0.2 X10'3 (0-0.9); NEUTROPHILS # (AUTO) 11.2 X10'3 (1.8-7.7); NEUTROPHILS % (AUTO) 94.1 % (42-75); PLATELET COUNT 554 X10'3 (140-440); RED BLOOD COUNT 3.88 X10'6 (4.70-6.10); RED CELL DISTRIBUTION WIDTH 13.2 % (11.5-14.5); WHITE BLOOD COUNT 11.9 X10'3 (4.5-11.0)
[2020-09-20 07:10] LABS: D-DIMER 3.34 MG/L FEU (0-0.50)
[2020-09-20 07:14] LABS: ALANINE AMINOTRANSFERASE 20 U/L (12-78); ALBUMIN 1.8 G/DL (3.4-5.0); ALBUMIN/GLOBULIN RATIO 0.5 (1.1-1.5); ALKALINE PHOSPHATASE 80 IU/L (46-116); ANION GAP 7 (8-16); ASPARTATE AMINO TRANSFERASE 9 U/L (10-37); BILIRUBIN,TOTAL 0.7 MG/DL (0.1-1.0); BLOOD UREA NITROGEN 29 MG/DL (7-18); BUN/CREATININE RATIO 36.7 (5.4-32.0); CALCIUM 7.9 MG/DL (8.5-10.1); CHLORIDE 97 MMOL/L (99-107); CREATININE 0.79 MG/DL (0.60-1.10); GLUCOSE 291 MG/DL (70-104); MAGNESIUM 1.9 MG/DL (1.5-2.4); PHOSPHORUS 3.5 MG/DL (2.3-4.5); POTASSIUM 4.8 MMOL/L (3.5-5.1); SODIUM 134 MMOL/L (135-145); TOTAL CARBON DIOXIDE 30.4 MMOL/L (24-32); TOTAL PROTEIN 5.6 G/DL (6.4-8.2); eGFR > 90 ML/MIN
[2020-09-20] MEDS: cefepime 1GM/NS ADD-VANTAGE 100 ML IV SCH (07:22)
[2020-09-20] MEDS: pantoprazole 40 MG vial IV SCH (07:23)
[2020-09-20] MEDS: furosemide 20 MG/2 ML vial IV SCH (07:23)
[2020-09-20] MEDS: lactobacillus rhamnosus 10,000 MMU CELLS/CAPSULE PO SCH ×2 (07:23→20:25)
[2020-09-20] MEDS: docusate sod 100mg capsule PO SCH ×2 (07:23→20:25)
[2020-09-20] MEDS: enoxaparin 60mg/0.6ml syringe SUBCUT SCH ×2 (07:23→20:25)
[2020-09-20] MEDS: insulin glargine (Lantus) pen - multi-dose SQ SCH (07:43)
[2020-09-20] MEDS ORDERED: dexamethasone 4mg/ml inj IV SCH (08:00)
[2020-09-20] MEDS: insulin Lispro (HumaLOG) vial - multi-dose SQ SCH ×3 (09:25→18:41)
[2020-09-20 09:37] VITALS: BP 118/74
--- NOTE | 2020-09-20 13:00 | NUR ---
SPOKE WITH DR VENEGAS RE PTS BLOOD SUGARS AND THE PROTOCOL NOT BEING FOLLOWED. PER DR VENEGAS, WHAT EVER THE PT IN COMFORTABLE WITH IS WHAT WE WILL DO RE INSULIN/PROTOCOL.
[2020-09-20 14:16] VITALS: BP 117/67
[2020-09-20 18:00] VITALS: BP 124/66
--- NOTE | 2020-09-20 18:12 | NUR ---
Problems reprioritized. Patient report given, questions answered & plan of care reviewed with YESENIA MARINA.
[2020-09-20] MEDS: dexamethasone 4mg/ml inj IV SCH (20:26)
[2020-09-20 22:00] VITALS: BP 136/77
[2020-09-21 02:00] VITALS: BP 137/79
[2020-09-21 06:00] VITALS: BP 141/77
--- NOTE | 2020-09-21 06:12 | NUR ---
Problems reprioritized. Patient report given, questions answered & plan of care reviewed with SALAS Senior.
[2020-09-21] MEDS: furosemide 20 MG/2 ML vial IV SCH (07:27)
[2020-09-21] MEDS: dexamethasone 4mg/ml inj IV SCH ×2 (07:27→19:41)
[2020-09-21] MEDS: pantoprazole 40 MG vial IV SCH (07:27)
[2020-09-21] MEDS: lactobacillus rhamnosus 10,000 MMU CELLS/CAPSULE PO SCH ×2 (07:28→19:41)
[2020-09-21] MEDS: enoxaparin 60mg/0.6ml syringe SUBCUT SCH ×2 (07:28→19:42)
[2020-09-21] MEDS: docusate sod 100mg capsule PO SCH ×2 (07:28→19:41)
[2020-09-21] MEDS: insulin glargine (Lantus) pen - multi-dose SQ SCH (08:05)
[2020-09-21] MEDS: insulin Lispro (HumaLOG) vial - multi-dose SQ SCH ×3 (10:00→21:50)
--- NOTE | 2020-09-21 10:00 | NUR ---
Assumed care of pt. Pt awake and alert. Pt denied any pain at this time. Encouraged pt to lay on side or prone as pt laying supine. Pt verbalized understanding. Pt reported increased weakness today. O2 sats 92%on 40% high flow n/c.
[2020-09-21 10:30] VITALS: BP_SYST 121
--- NOTE | 2020-09-21 13:18 | NUR ---
Reassessment: Patient's PO intake has significantly improved up to 100% meeting estimated nutrient needs. LBM 09/20. No nutrition intervention warranted at this time. Will continue to follow. Recommend: 1. Continue carb controlled diet 2. Routine bowel care 3. Encourage PO Intake 4. Scaled weights per rx Addendum: 09/21/20 at [address] Amended: Links added.
[2020-09-21 14:30] VITALS: BP 103/50
[2020-09-21 16:41] LABS: MEAN CORPUSCULAR VOLUME 94.6 FL (78-98); RED CELL DISTRIBUTION WIDTH 13.2 % (11.5-14.5)
[2020-09-21 16:43] LABS: BASOPHILS % (AUTO) 0.1 % (0-1); EOSINOPHILS % (AUTO) 0.2 % (0-6); HEMATOCRIT 39.7 % (42.0-52.0); HEMOGLOBIN 13.1 g/dl (14.0-17.9); LYMPHOCYTES # (AUTO) 0.6 X10'3 (1.1-4.8); LYMPHOCYTES % (AUTO) 3.8 % (21-51); MEAN CORPUSCULAR HEMOGLOBIN 31.3 PG (27.0-31.0); MEAN CORPUSCULAR HGB CONC 33.1 g/dL (33.0-36.5); MEAN PLATELET VOLUME 6.9 FL (7.4-10.4); MONOCYTES # (AUTO) 0.7 X10'3 (0-0.9); MONOCYTES % (AUTO) 4.4 % (2-12); NEUTROPHILS # (AUTO) 14.8 X10'3 (1.8-7.7); NEUTROPHILS % (AUTO) 91.5 % (42-75); PLATELET COUNT 618 X10'3 (140-440); RED BLOOD COUNT 4.19 X10'6 (4.70-6.10); WHITE BLOOD COUNT 16.1 X10'3 (4.5-11.0)
[2020-09-21 16:54] LABS: D-DIMER 2.29 MG/L FEU (0-0.50)
[2020-09-21 16:56] LABS: ALANINE AMINOTRANSFERASE 26 U/L (12-78); ALBUMIN 2.2 G/DL (3.4-5.0); ALBUMIN/GLOBULIN RATIO 0.5 (1.1-1.5); ALKALINE PHOSPHATASE 74 IU/L (46-116); ANION GAP 8 (8-16); ASPARTATE AMINO TRANSFERASE 8 U/L (10-37); BILIRUBIN,TOTAL 0.7 MG/DL (0.1-1.0); BLOOD UREA NITROGEN 37 MG/DL (7-18); BUN/CREATININE RATIO 24.8 (5.4-32.0); C-REACTIVE PROTEIN 1.48 MG/DL (0.0-0.5); CHLORIDE 101 MMOL/L (99-107); CREATININE 1.49 MG/DL (0.60-1.10); GLUCOSE 165 MG/DL (70-104); MAGNESIUM 1.9 MG/DL (1.5-2.4); PHOSPHORUS 4.1 MG/DL (2.3-4.5); POTASSIUM 4.4 MMOL/L (3.5-5.1); SODIUM 140 MMOL/L (135-145); TOTAL CARBON DIOXIDE 31.1 MMOL/L (24-32); TOTAL PROTEIN 6.3 G/DL (6.4-8.2); eGFR 48 ML/MIN
[2020-09-21 18:00] VITALS: BP 137/71
[2020-09-21 22:00] VITALS: BP 146/79
[2020-09-22] MEDS: LORazepam 2 mg/ml vial IV PRN (00:37)
[2020-09-22 02:00] VITALS: BP 119/77
[2020-09-22 06:00] VITALS: BP 136/87
[2020-09-22 07:32] LABS: D-DIMER 1.58 MG/L FEU (0-0.50)
[2020-09-22 07:33] LABS: ANION GAP 6 (8-16); BLOOD UREA NITROGEN 34 MG/DL (7-18); BUN/CREATININE RATIO 38.6 (5.4-32.0); CHLORIDE 102 MMOL/L (99-107); CREATININE 0.88 MG/DL (0.60-1.10); GLUCOSE 259 MG/DL (70-104); POTASSIUM 4.7 MMOL/L (3.5-5.1); SODIUM 137 MMOL/L (135-145); TOTAL CARBON DIOXIDE 29.4 MMOL/L (24-32)
[2020-09-22 07:34] LABS: ALANINE AMINOTRANSFERASE 19 U/L (12-78); ALBUMIN/GLOBULIN RATIO 0.5 (1.1-1.5); ALKALINE PHOSPHATASE 73 IU/L (46-116); ASPARTATE AMINO TRANSFERASE 5 U/L (10-37); BILIRUBIN,TOTAL 0.6 MG/DL (0.1-1.0); C-REACTIVE PROTEIN 1.32 MG/DL (0.0-0.5); CALCIUM 8.5 MG/DL (8.5-10.1); MAGNESIUM 1.9 MG/DL (1.5-2.4); PHOSPHORUS 3.3 MG/DL (2.3-4.5); TOTAL PROTEIN 5.8 G/DL (6.4-8.2); eGFR 88 ML/MIN
[2020-09-22 07:56] LABS: BASOPHILS % (AUTO) 0.3 % (0-1); EOSINOPHILS # (AUTO) 0.1 X10'3 (0-0.9); EOSINOPHILS % (AUTO) 0.4 % (0-6); HEMATOCRIT 36.2 % (42.0-52.0); HEMOGLOBIN 12.1 g/dl (14.0-17.9); LYMPHOCYTES # (AUTO) 1.1 X10'3 (1.1-4.8); LYMPHOCYTES % (AUTO) 8.3 % (21-51); MEAN CORPUSCULAR HEMOGLOBIN 31.7 PG (27.0-31.0); MEAN CORPUSCULAR HGB CONC 33.4 g/dL (33.0-36.5); MEAN PLATELET VOLUME 6.9 FL (7.4-10.4); MONOCYTES # (AUTO) 0.6 X10'3 (0-0.9); MONOCYTES % (AUTO) 4.4 % (2-12); NEUTROPHILS # (AUTO) 11.4 X10'3 (1.8-7.7); NEUTROPHILS % (AUTO) 86.6 % (42-75); PLATELET COUNT 539 X10'3 (140-440); RED BLOOD COUNT 3.81 X10'6 (4.70-6.10); RED CELL DISTRIBUTION WIDTH 13.4 % (11.5-14.5); WHITE BLOOD COUNT 13.1 X10'3 (4.5-11.0)
[2020-09-22] MEDS: furosemide 20 MG/2 ML vial IV SCH ×2 (08:00→08:15)
[2020-09-22] MEDS: insulin glargine (Lantus) pen - multi-dose SQ SCH (08:13)
[2020-09-22] MEDS: insulin Lispro (HumaLOG) vial - multi-dose SQ SCH ×3 (08:14→19:42)
[2020-09-22] MEDS: pantoprazole 40 MG vial IV SCH (08:15)
[2020-09-22] MEDS: enoxaparin 60mg/0.6ml syringe SUBCUT SCH ×2 (08:15→20:56)
[2020-09-22] MEDS: dexamethasone 4mg/ml inj IV SCH ×2 (08:15→20:57)
[2020-09-22] MEDS: docusate sod 100mg capsule PO SCH ×2 (08:19→20:55)
[2020-09-22] MEDS: lactobacillus rhamnosus 10,000 MMU CELLS/CAPSULE PO SCH ×2 (08:19→20:55)
[2020-09-22 09:38] VITALS: BP 138/81
[2020-09-22 14:00] VITALS: BP 132/80
[2020-09-22 18:00] VITALS: BP 136/77
[2020-09-22 22:00] VITALS: BP 154/85
[2020-09-23 02:00] VITALS: BP 120/76
[2020-09-23 06:57] LABS: D-DIMER 1.72 MG/L FEU (0-0.50)
[2020-09-23 07:00] VITALS: BP 144/72
[2020-09-23 07:25] LABS: BASOPHILS # (AUTO) 0.1 X10'3 (0-0.2); BASOPHILS % (AUTO) 0.4 % (0-1); EOSINOPHILS % (AUTO) 0.3 % (0-6); HEMATOCRIT 36.3 % (42.0-52.0); HEMOGLOBIN 12.1 g/dl (14.0-17.9); LYMPHOCYTES % (AUTO) 5.9 % (21-51); MEAN CORPUSCULAR HEMOGLOBIN 31.7 PG (27.0-31.0); MEAN CORPUSCULAR HGB CONC 33.3 g/dL (33.0-36.5); MEAN CORPUSCULAR VOLUME 95.3 FL (78-98); MEAN PLATELET VOLUME 7.2 FL (7.4-10.4); MONOCYTES # (AUTO) 0.6 X10'3 (0-0.9); MONOCYTES % (AUTO) 3.5 % (2-12); NEUTROPHILS % (AUTO) 89.9 % (42-75); PLATELET COUNT 508 X10'3 (140-440); RED BLOOD COUNT 3.81 X10'6 (4.70-6.10); RED CELL DISTRIBUTION WIDTH 12.9 % (11.5-14.5); WHITE BLOOD COUNT 16.7 X10'3 (4.5-11.0)
[2020-09-23 07:34] LABS: ALANINE AMINOTRANSFERASE 17 U/L (12-78); ALBUMIN/GLOBULIN RATIO 0.5 (1.1-1.5); ALKALINE PHOSPHATASE 59 IU/L (46-116); ANION GAP 8 (8-16); ASPARTATE AMINO TRANSFERASE 4 U/L (10-37); BILIRUBIN,TOTAL 0.8 MG/DL (0.1-1.0); BLOOD UREA NITROGEN 28 MG/DL (7-18); BUN/CREATININE RATIO 41.2 (5.4-32.0); C-REACTIVE PROTEIN 1.44 MG/DL (0.0-0.5); CALCIUM 8.6 MG/DL (8.5-10.1); CHLORIDE 101 MMOL/L (99-107); CREATININE 0.68 MG/DL (0.60-1.10); GLUCOSE 207 MG/DL (70-104); MAGNESIUM 1.9 MG/DL (1.5-2.4); PHOSPHORUS 3.7 MG/DL (2.3-4.5); POTASSIUM 4.7 MMOL/L (3.5-5.1); SODIUM 136 MMOL/L (135-145); eGFR > 90 ML/MIN
[2020-09-23] MEDS: furosemide 20 MG/2 ML vial IV SCH (08:00)
[2020-09-23] MEDS: insulin glargine (Lantus) pen - multi-dose SQ SCH (08:03)
[2020-09-23] MEDS: dexamethasone 4mg/ml inj IV SCH ×2 (08:06→21:31)
[2020-09-23] MEDS: docusate sod 100mg capsule PO SCH ×2 (08:07→21:30)
[2020-09-23] MEDS: pantoprazole 40 MG vial IV SCH (08:07)
[2020-09-23] MEDS: lactobacillus rhamnosus 10,000 MMU CELLS/CAPSULE PO SCH ×2 (08:07→21:30)
[2020-09-23] MEDS: enoxaparin 60mg/0.6ml syringe SUBCUT SCH ×2 (08:07→21:31)
[2020-09-23] MEDS: insulin Lispro (HumaLOG) vial - multi-dose SQ SCH ×3 (09:28→18:58)
[2020-09-23 10:00] VITALS: BP 132/75
[2020-09-23 14:00] VITALS: BP 134/80
--- NOTE | 2020-09-23 15:32 | NUR ---
PAtient still requesting a nurse to "stimulate his back muscles" . Patient has been told many times by Dr Linn and Maribel that no nurses will be stimulating his muscles.
[2020-09-23 18:00] VITALS: BP 137/76
--- NOTE | 2020-09-23 18:43 | NUR ---
Patient in room ORTHO 4015. I have received report from graciela Strange and had the opportunity to ask questions and assume patient care.
--- NOTE | 2020-09-23 18:56 | NUR ---
pt refused insulin after dinner due to hypoglycimic episode he had earlier. i explained that blood sugar has been normalized now.
[2020-09-23 22:00] VITALS: BP 131/79
[2020-09-24 02:00] VITALS: BP 133/77
--- NOTE | 2020-09-24 06:24 | NUR ---
Problems reprioritized. Patient report given, questions answered & plan of care reviewed with graciela Strange.
--- NOTE | 2020-09-24 06:42 | NUR ---
Patient in room ORTHO 4015. I have received report from Damian and had the opportunity to ask questions and assume patient care.
[2020-09-24 07:04] LABS: BASOPHILS # (AUTO) 0.1 X10'3 (0-0.2); BASOPHILS % (AUTO) 0.4 % (0-1); EOSINOPHILS % (AUTO) 0.2 % (0-6); HEMATOCRIT 35.8 % (42.0-52.0); LYMPHOCYTES # (AUTO) 1.1 X10'3 (1.1-4.8); LYMPHOCYTES % (AUTO) 6.4 % (21-51); MEAN CORPUSCULAR HEMOGLOBIN 31.8 PG (27.0-31.0); MEAN CORPUSCULAR HGB CONC 33.5 g/dL (33.0-36.5); MEAN CORPUSCULAR VOLUME 94.8 FL (78-98); MONOCYTES # (AUTO) 0.8 X10'3 (0-0.9); MONOCYTES % (AUTO) 4.5 % (2-12); NEUTROPHILS # (AUTO) 14.8 X10'3 (1.8-7.7); NEUTROPHILS % (AUTO) 88.5 % (42-75); PLATELET COUNT 502 X10'3 (140-440); RED BLOOD COUNT 3.78 X10'6 (4.70-6.10); RED CELL DISTRIBUTION WIDTH 13.4 % (11.5-14.5); WHITE BLOOD COUNT 16.7 X10'3 (4.5-11.0)
[2020-09-24 07:15] LABS: D-DIMER 0.99 MG/L FEU (0-0.50)
[2020-09-24 07:24] LABS: ALANINE AMINOTRANSFERASE 18 U/L (12-78); ALBUMIN/GLOBULIN RATIO 0.5 (1.1-1.5); ALKALINE PHOSPHATASE 64 IU/L (46-116); ANION GAP 6 (8-16); ASPARTATE AMINO TRANSFERASE 5 U/L (10-37); BILIRUBIN,TOTAL 0.6 MG/DL (0.1-1.0); BLOOD UREA NITROGEN 29 MG/DL (7-18); BUN/CREATININE RATIO 34.1 (5.4-32.0); C-REACTIVE PROTEIN 1.14 MG/DL (0.0-0.5); CALCIUM 8.9 MG/DL (8.5-10.1); CHLORIDE 101 MMOL/L (99-107); CREATININE 0.85 MG/DL (0.60-1.10); GLUCOSE 244 MG/DL (70-104); MAGNESIUM 1.8 MG/DL (1.5-2.4); PHOSPHORUS 4.2 MG/DL (2.3-4.5); POTASSIUM 4.5 MMOL/L (3.5-5.1); SODIUM 137 MMOL/L (135-145); TOTAL CARBON DIOXIDE 30.2 MMOL/L (24-32); eGFR > 90 ML/MIN
[2020-09-24] MEDS: insulin glargine (Lantus) pen - multi-dose SQ SCH (09:47)
[2020-09-24] MEDS: pantoprazole 40 MG vial IV SCH (09:48)
[2020-09-24] MEDS: docusate sod 100mg capsule PO SCH ×2 (09:48→20:21)
[2020-09-24] MEDS: lactobacillus rhamnosus 10,000 MMU CELLS/CAPSULE PO SCH ×2 (09:48→20:21)
--- NOTE | 2020-09-24 09:56 | NUR ---
patient refused short acting insulin
--- NOTE | 2020-09-24 10:12 | NUR ---
SALAS fax: Pt requesting additional portion sizes and proteins at meals; will send double eggs WB and double meats BIDLD. Dietary notified. Addendum: 09/24/20 at [address] Amended: Links added.
--- NOTE | 2020-09-24 12:35 | NUR ---
Placed pt on salter HFNC 6L, pt doing well, decreased to 4L and still sating 97%. Will leave at this for now to make sure pt sustains, Alie MARINA notified.
--- NOTE | 2020-09-24 15:54 | NUR ---
Patient refusing short acting insulin Breakfast and Lunch. Patient Said he drops to low and its very upsetting. I explained to hi m that we use a chart and check him to catch if hes low and he still doesnt not want any.
[2020-09-24 18:00] VITALS: BP 127/83
--- NOTE | 2020-09-24 18:42 | NUR ---
Report rec'd from graciela Strange. all questions answered.
[2020-09-24] MEDS ORDERED: enoxaparin 60mg/0.6ml syringe SUBCUT SCH (20:00)
[2020-09-24] MEDS: dexamethasone 4mg/ml inj IV SCH (20:21)
[2020-09-25 02:00] VITALS: BP 132/71
[2020-09-25 06:10] VITALS: BP 139/78
--- NOTE | 2020-09-25 06:46 | NUR ---
REPORT GIVEN TO SALAS JULIAN.
[2020-09-25] MEDS: pantoprazole 40 MG vial IV SCH (07:52)
[2020-09-25] MEDS: dexamethasone 4mg/ml inj IV SCH ×2 (07:52→20:43)
[2020-09-25] MEDS: lactobacillus rhamnosus 10,000 MMU CELLS/CAPSULE PO SCH ×2 (07:52→20:43)
[2020-09-25] MEDS: docusate sod 100mg capsule PO SCH ×2 (07:53→20:43)
[2020-09-25] MEDS ORDERED: enoxaparin 40mg/0.4ml syringe SUBCUT SCH (08:00)
[2020-09-25] MEDS: insulin glargine (Lantus) pen - multi-dose SQ SCH (08:00)
[2020-09-25 08:08] LABS: BASOPHILS # (AUTO) 0.1 X10'3 (0-0.2); BASOPHILS % (AUTO) 0.7 % (0-1); EOSINOPHILS % (AUTO) 0.3 % (0-6); HEMATOCRIT 36.1 % (42.0-52.0); HEMOGLOBIN 12.1 g/dl (14.0-17.9); LYMPHOCYTES # (AUTO) 1.2 X10'3 (1.1-4.8); LYMPHOCYTES % (AUTO) 8.1 % (21-51); MEAN CORPUSCULAR HEMOGLOBIN 31.9 PG (27.0-31.0); MEAN CORPUSCULAR HGB CONC 33.5 g/dL (33.0-36.5); MEAN CORPUSCULAR VOLUME 95.2 FL (78-98); MEAN PLATELET VOLUME 7.3 FL (7.4-10.4); MONOCYTES # (AUTO) 0.9 X10'3 (0-0.9); MONOCYTES % (AUTO) 6.3 % (2-12); NEUTROPHILS # (AUTO) 12.5 X10'3 (1.8-7.7); NEUTROPHILS % (AUTO) 84.6 % (42-75); PLATELET COUNT 486 X10'3 (140-440); RED CELL DISTRIBUTION WIDTH 13.5 % (11.5-14.5); WHITE BLOOD COUNT 14.8 X10'3 (4.5-11.0)
[2020-09-25 08:27] LABS: ALANINE AMINOTRANSFERASE 18 U/L (12-78); ALBUMIN 2.1 G/DL (3.4-5.0); ALBUMIN/GLOBULIN RATIO 0.5 (1.1-1.5); ALKALINE PHOSPHATASE 64 IU/L (46-116); ANION GAP 5 (8-16); ASPARTATE AMINO TRANSFERASE 4 U/L (10-37); BILIRUBIN,TOTAL 0.5 MG/DL (0.1-1.0); BLOOD UREA NITROGEN 32 MG/DL (7-18); BUN/CREATININE RATIO 42.7 (5.4-32.0); C-REACTIVE PROTEIN 1.26 MG/DL (0.0-0.5); CALCIUM 9.4 MG/DL (8.5-10.1); CHLORIDE 102 MMOL/L (99-107); CREATININE 0.75 MG/DL (0.60-1.10); GLUCOSE 233 MG/DL (70-104); MAGNESIUM 1.8 MG/DL (1.5-2.4); PHOSPHORUS 3.8 MG/DL (2.3-4.5); POTASSIUM 4.4 MMOL/L (3.5-5.1); SODIUM 137 MMOL/L (135-145); TOTAL CARBON DIOXIDE 29.8 MMOL/L (24-32); TOTAL PROTEIN 6.1 G/DL (6.4-8.2); eGFR > 90 ML/MIN
[2020-09-25] MEDS: insulin Lispro (HumaLOG) vial - multi-dose SQ SCH ×3 (08:27→18:39)
[2020-09-25] MEDS: enoxaparin 40mg/0.4ml syringe SUBCUT SCH (08:30)
[2020-09-25 09:01] LABS: D-DIMER 1.74 MG/L FEU (0-0.50)
[2020-09-25 10:00] VITALS: BP 131/77
[2020-09-25 14:00] VITALS: BP 126/68
--- NOTE | 2020-09-25 14:48 | NUR ---
Reassessment: Pt PO 75-100% mostly 100% avg meals w/ double proteins meeting needs. Glu 191 refused Lantus this AM. LBM 09/23. No nutrition concerns at this time. Will continue to monitor. Recommend: 1. Continue carb controlled diet; double eggs WB, double meats BIDLD 2. Routine bowel care 3. weights per rx Addendum: 09/25/20 at [address] Amended: Links added.
--- NOTE | 2020-09-25 18:18 | NUR ---
Patient in room ORTHO 4015. I have received report from SALAS JULIAN and had the opportunity to ask questions and assume patient care.
[2020-09-25 18:30] VITALS: BP 132/78
[2020-09-25 22:00] VITALS: BP 147/82
[2020-09-26 03:29] VITALS: BP 143/82
[2020-09-26 06:00] VITALS: BP 130/84
--- NOTE | 2020-09-26 06:22 | NUR ---
Problems reprioritized. Patient report given, questions answered & plan of care reviewed with SALAS HANSON.
--- NOTE | 2020-09-26 06:24 | NUR ---
Patient in room ORTHO 4015B. I have received report from SALAS Avendaño and had the opportunity to ask questions and assume patient care.
[2020-09-26 07:25] LABS: BASOPHILS # (AUTO) 0.1 X10'3 (0-0.2); BASOPHILS % (AUTO) 0.4 % (0-1); EOSINOPHILS # (AUTO) 0.1 X10'3 (0-0.9); EOSINOPHILS % (AUTO) 0.4 % (0-6); HEMATOCRIT 36.7 % (42.0-52.0); HEMOGLOBIN 12.4 g/dl (14.0-17.9); LYMPHOCYTES # (AUTO) 1.5 X10'3 (1.1-4.8); LYMPHOCYTES % (AUTO) 9.5 % (21-51); MEAN CORPUSCULAR HEMOGLOBIN 32.1 PG (27.0-31.0); MEAN CORPUSCULAR HGB CONC 33.8 g/dL (33.0-36.5); MEAN CORPUSCULAR VOLUME 95.2 FL (78-98); MEAN PLATELET VOLUME 6.9 FL (7.4-10.4); MONOCYTES % (AUTO) 5.8 % (2-12); NEUTROPHILS # (AUTO) 13.6 X10'3 (1.8-7.7); NEUTROPHILS % (AUTO) 83.9 % (42-75); PLATELET COUNT 489 X10'3 (140-440); RED BLOOD COUNT 3.85 X10'6 (4.70-6.10); RED CELL DISTRIBUTION WIDTH 13.2 % (11.5-14.5); WHITE BLOOD COUNT 16.3 X10'3 (4.5-11.0)
[2020-09-26 07:29] LABS: D-DIMER 1.31 MG/L FEU (0-0.50)
[2020-09-26] MEDS: lactobacillus rhamnosus 10,000 MMU CELLS/CAPSULE PO SCH (07:38)
[2020-09-26] MEDS: docusate sod 100mg capsule PO SCH (07:38)
[2020-09-26] MEDS: pantoprazole 40 MG vial IV SCH (07:38)
[2020-09-26] MEDS: insulin glargine (Lantus) pen - multi-dose SQ SCH (07:39)
[2020-09-26] MEDS: enoxaparin 40mg/0.4ml syringe SUBCUT SCH (07:40)
[2020-09-26 08:00] LABS: ALANINE AMINOTRANSFERASE 18 U/L (12-78); ALBUMIN 2.2 G/DL (3.4-5.0); ALBUMIN/GLOBULIN RATIO 0.5 (1.1-1.5); ALKALINE PHOSPHATASE 73 IU/L (46-116); ANION GAP 5 (8-16); ASPARTATE AMINO TRANSFERASE 5 U/L (10-37); BILIRUBIN,TOTAL 0.5 MG/DL (0.1-1.0); BLOOD UREA NITROGEN 33 MG/DL (7-18); BUN/CREATININE RATIO 41.3 (5.4-32.0); C-REACTIVE PROTEIN 0.64 MG/DL (0.0-0.5); CALCIUM 8.8 MG/DL (8.5-10.1); CHLORIDE 102 MMOL/L (99-107); GLUCOSE 249 MG/DL (70-104); MAGNESIUM 1.7 MG/DL (1.5-2.4); PHOSPHORUS 3.4 MG/DL (2.3-4.5); POTASSIUM 4.5 MMOL/L (3.5-5.1); SODIUM 136 MMOL/L (135-145); TOTAL CARBON DIOXIDE 29.2 MMOL/L (24-32); TOTAL PROTEIN 6.4 G/DL (6.4-8.2); eGFR > 90 ML/MIN
[2020-09-26] MEDS ORDERED: DEXAMETHASONE 6 MG TABLET PO SCH (08:00)
[2020-09-26] MEDS: insulin Lispro (HumaLOG) vial - multi-dose SQ SCH (08:41)
[2020-09-26 10:00] VITALS: BP 129/73
[2020-09-26] MEDS ORDERED: ALBU8.5H8 INH (10:05)
[2020-09-26] MEDS ORDERED: LISI-604 PO (10:05)
[2020-09-26] MEDS ORDERED: DEXA6TAB PO (10:05)
[2020-09-26] MEDS ORDERED: ASPI-611 PO (10:05)
[2020-09-26] MEDS ORDERED: LACT1CAP26 PO (10:05)
--- NOTE | 2020-09-26 11:47 | NUR ---
DC INSTRUCTIONS GIVEN, QUESTIONS ANSWERED. IV REMOVED, CANULA INTACT, NO COMPLICATIONS. GATHERED PTS BELONGINGS. WHEELED DOWN TO PRIVATE VEHICLE IN STABLE CONDITION.
== END 2020-09-26 11:45 | disposition home or self-care (01) | DRG 137 ==
LOC: ER 20:40 → CICU 2S 09-13 02:00 → ED HOLD 09-13 02:00 → UNDOADMIN 09-13 02:00 → ED HOLD 09-13 10:44 → CICU 2S 09-13 10:44 → ORTHO 4S 09-19 18:15
PROVIDERS: ADMIT Internal Medicine Critical Care Medicine; ATTEND Internal Medicine Critical Care Medicine
PROC: XW033E5 Introduction of Remdesivir Anti-infective into Peripheral Vein, Percutaneous Approach, New Technology Group 5 (ICD-10-PCS; principal; 2020-09-13)
PROC: 5A0935A Assistance with Respiratory Ventilation, Less than 24 Consecutive Hours, High Flow/Velocity Cannula (ICD-10-PCS; 2020-09-13)
PROC: 5A0935A Assistance with Respiratory Ventilation, Less than 24 Consecutive Hours, High Flow/Velocity Cannula (ICD-10-PCS; 2020-09-14)
PROC: 5A0955A Assistance with Respiratory Ventilation, Greater than 96 Consecutive Hours, High Flow/Velocity Cannula (ICD-10-PCS; 2020-09-15)
PROC: 5A0935A Assistance with Respiratory Ventilation, Less than 24 Consecutive Hours, High Flow/Velocity Cannula (ICD-10-PCS; 2020-09-15)
DX: U07.1 COVID-19 (principal); E11.9 Type 2 diabetes mellitus without complications; J12.82 Pneumonia due to coronavirus disease 2019; J96.01 Acute respiratory failure with hypoxia; Z88.0 Allergy status to penicillin; Z88.8 Allergy status to other drugs, medicaments and biological substances; Z79.899 Other long term (current) drug therapy
CPT/HCPCS: 36415; 36600; 71045; 80053; 81001; 82728; 82803; 82948; 83036; 83605; 83615; 83735; 83880; 84100; 84145; 85007; 85018; 85025; 85379; 85384; 85610; 85730; 86140; 87040; 87081; 93306; 94640; 94760; 97110; 97116; 97161; 97530; 99285; C9113; G0378; J0692; J1100; J1650; J1815; J1940; J1956; J2060; J2270; J2405; J2765; J2920; J2930; J7030; J8540

== ENCOUNTER 2021-12-24 08:59 | Emergency (ER) | payer MEDICAID ==
[~2021-12-24] VITALS: Ht 180.3 cm; Wt 83.2 kg
[~2021-12-24 08:59] MED LIST changes: +ALBU8.5H17 INH; +DEXA6TAB PO; -HYDR-4383 PO; +INSU100I31 SQ; +LACT1CAP26 PO; -LANTUS SQ; +LISI5TAB22 PO; -tamsulosin capsule PO
[2021-12-24] MEDS ORDERED: PRED20TA PO (10:39)
[2021-12-24 11:39] VITALS: BP 170/93
== END 2021-12-24 11:40 | disposition home or self-care (01) ==
LOC: ER 09:00
DX: T78.3XXA Angioneurotic edema, initial encounter (principal); E11.9 Type 2 diabetes mellitus without complications; Z88.0 Allergy status to penicillin; Z88.8 Allergy status to other drugs, medicaments and biological substances; Z79.899 Other long term (current) drug therapy; X58.XXXA Exposure to other specified factors, initial encounter; Y93.89 Activity, other specified; Y92.89 Other specified places as the place of occurrence of the external cause; Y99.8 Other external cause status
CPT/HCPCS: 93005; 99283

== ENCOUNTER 2022-01-12 17:57 | Inpatient (IN) | payer MEDICAID ==
[~2022-01-12] VITALS: Ht 180.3 cm; Wt 81.8 kg
[2022-01-12] MEDS ORDERED: IOHEXOL 350 MG/ML INFUS..BTL 125ML IV ONE (18:56)
[2022-01-12 19:00] LABS: ALANINE AMINOTRANSFERASE 23 U/L (12-78); ALBUMIN 3.3 G/DL (3.4-5.0); ALBUMIN/GLOBULIN RATIO 0.9 (1.1-1.5); ALKALINE PHOSPHATASE 54 IU/L (46-116); ANION GAP 8 (8-16); ASPARTATE AMINO TRANSFERASE 8 U/L (10-37); BILIRUBIN,TOTAL 0.4 MG/DL (0.1-1.0); BLOOD UREA NITROGEN 38 MG/DL (7-18); CALCIUM 8.9 MG/DL (8.5-10.1); CHLORIDE 105 MMOL/L (99-107); CREATININE 1.65 MG/DL (0.60-1.10); GLUCOSE 259 MG/DL (70-104); POTASSIUM 4.3 MMOL/L (3.5-5.1); SODIUM 138 MMOL/L (135-145); TOTAL CARBON DIOXIDE 24.7 MMOL/L (24-32); TOTAL PROTEIN 7.1 G/DL (6.4-8.2); eGFR 42 ML/MIN
[2022-01-12 19:01] LABS: APTT 24 SECONDS (22-32)
[2022-01-12 19:05] LABS: BASOPHILS # (AUTO) 0.1 X10'3 (0-0.2); BASOPHILS % (AUTO) 0.5 % (0-1); EOSINOPHILS # (AUTO) 0.1 X10'3 (0-0.9); HEMOGLOBIN 13.5 g/dl (14.0-17.9); LYMPHOCYTES # (AUTO) 2.7 X10'3 (1.1-4.8); LYMPHOCYTES % (AUTO) 21.2 % (21-51); MEAN CORPUSCULAR HEMOGLOBIN 31.8 PG (27.0-31.0); MEAN CORPUSCULAR HGB CONC 33.6 g/dL (33.0-36.5); MEAN CORPUSCULAR VOLUME 94.7 FL (78-98); MEAN PLATELET VOLUME 8.2 FL (7.4-10.4); MONOCYTES % (AUTO) 8.3 % (2-12); NEUTROPHILS # (AUTO) 8.6 X10'3 (1.8-7.7); PLATELET COUNT 360 X10'3 (140-440); RED BLOOD COUNT 4.23 X10'6 (4.70-6.10); RED CELL DISTRIBUTION WIDTH 13.8 % (11.5-14.5); WHITE BLOOD COUNT 12.5 X10'3 (4.5-11.0)
[2022-01-12] MEDS ORDERED: clopidogrel 75mg tablet PO STA (21:42)
[2022-01-12] MEDS ORDERED: aspirin 81mg tab.chew PO ONE (21:45)
[2022-01-12] MEDS ORDERED: potassium CL 10mEq/100ml bag 100 ML IV PRN (22:30)
[2022-01-12] MEDS ORDERED: MESSAGE TO PHARMACY PO ONE (22:30)
[2022-01-12] MEDS ORDERED: magnesium 2GM in 50ml NS 50 ML IV PRN (22:30)
[2022-01-12] MEDS ORDERED: mag hydrox/Alum hydrox/simeth 30ml oral suspension PO PRN (22:30)
[2022-01-12] MEDS ORDERED: magnesium hydroxide 30ml (MOM) UD suspension PO PRN (22:30)
[2022-01-12] MEDS ORDERED: insulin Lispro (HumaLOG) vial - multi-dose SQ SCH (22:30)
[2022-01-12] MEDS ORDERED: POTASSIUM BICARB 20meq eff tab 20 MEQ TABLET.EFF PO PRN ×2 (22:30)
[2022-01-12] MEDS ORDERED: magnesium Cl slow-release 64mg tablet PO PRN (22:30)
[2022-01-12] MEDS ORDERED: magnesium 4gm in 100ml NS 100 ML IV PRN (22:30)
[2022-01-12] MEDS ORDERED: PERFLUTREN PROTEIN-A MICROSPHR (Optison) 0.22 MG/ML 3ML VIAL IV PRN (22:30)
[2022-01-12] MEDS ORDERED: dextrose 50%-water 50ml dispensing syringe IV PRN ×2 (22:30)
[2022-01-12] MEDS ORDERED: acetaminophen 325mg tablet PO PRN (22:30)
[2022-01-12] MEDS ORDERED: DEXTROSE 15 GM of carb/4 tabs (each vial/BOTTLE has 4 tablets) PO PRN ×2 (22:30)
[2022-01-12] MEDS ORDERED: ondansetron/PF 4mg/2ml inj IV PRN (22:30)
[2022-01-12] MEDS ORDERED: glucagon, human recombinant 1mg kit SUBCUT PRN (22:30)
[2022-01-12 22:40] LABS: MAGNESIUM 1.9 MG/DL (1.5-2.4)
[2022-01-12 22:46] LABS: HEMOGLOBIN A1C 8.9 % (4.5-6.2)
[2022-01-13] VITALS (7 sets, daily range): BP systolic 129–167; BP diastolic 82–93
[2022-01-13 06:18] LABS: ALANINE AMINOTRANSFERASE 20 U/L (12-78); ALBUMIN 2.9 G/DL (3.4-5.0); ALBUMIN/GLOBULIN RATIO 0.9 (1.1-1.5); ALKALINE PHOSPHATASE 43 IU/L (46-116); ANION GAP 5 (8-16); ASPARTATE AMINO TRANSFERASE 6 U/L (10-37); BILIRUBIN,TOTAL 0.6 MG/DL (0.1-1.0); BLOOD UREA NITROGEN 32 MG/DL (7-18); BUN/CREATININE RATIO 26.4 (5.4-32.0); CALCIUM 8.7 MG/DL (8.5-10.1); CHLORIDE 108 MMOL/L (99-107); CHOL/HDL RATIO 3.8 (0.00-4.99); CHOLESTEROL 226 MG/DL (0-200); CREATININE 1.21 MG/DL (0.60-1.10); GLUCOSE 193 MG/DL (70-104); HDL CHOLESTEROL 59 MG/DL (35-60); LDL CHOLESTEROL 144 MG/DL (50-100); POTASSIUM 4.1 MMOL/L (3.5-5.1); SODIUM 140 MMOL/L (135-145); TOTAL CARBON DIOXIDE 27.5 MMOL/L (24-32); TOTAL PROTEIN 6.1 G/DL (6.4-8.2); TRIGLYCERIDES 72 MG/DL (20-135); eGFR 61 ML/MIN
[2022-01-13 06:23] LABS: BASOPHILS # (AUTO) 0.1 X10'3 (0-0.2); BASOPHILS % (AUTO) 0.6 % (0-1); EOSINOPHILS # (AUTO) 0.2 X10'3 (0-0.9); EOSINOPHILS % (AUTO) 1.5 % (0-6); HEMATOCRIT 37.2 % (42.0-52.0); HEMOGLOBIN 12.7 g/dl (14.0-17.9); LYMPHOCYTES # (AUTO) 2.9 X10'3 (1.1-4.8); LYMPHOCYTES % (AUTO) 27.1 % (21-51); MEAN CORPUSCULAR HGB CONC 34.2 g/dL (33.0-36.5); MEAN CORPUSCULAR VOLUME 93.4 FL (78-98); MEAN PLATELET VOLUME 7.9 FL (7.4-10.4); MONOCYTES # (AUTO) 0.9 X10'3 (0-0.9); NEUTROPHILS # (AUTO) 6.5 X10'3 (1.8-7.7); NEUTROPHILS % (AUTO) 61.8 % (42-75); PLATELET COUNT 313 X10'3 (140-440); RED BLOOD COUNT 3.98 X10'6 (4.70-6.10); RED CELL DISTRIBUTION WIDTH 13.3 % (11.5-14.5); WHITE BLOOD COUNT 10.5 X10'3 (4.5-11.0)
--- NOTE | 2022-01-13 06:35 | NUR ---
Patient in room ORTHO 4015. I have received report from jovanna rn and had the opportunity to ask questions and assume patient care.
[2022-01-13] MEDS: aspirin 81mg tab.chew PO SCH (07:21)
[2022-01-13] MEDS: docusate sod 100mg capsule PO SCH ×2 (07:21→20:00)
[2022-01-13] MEDS: clopidogrel 75mg tablet PO SCH (07:21)
[2022-01-13] MEDS: heparin, porcine 5000 units/ml vial SQ SCH ×2 (07:23→20:01)
[2022-01-13] MEDS: K and/or MAG REPLACEMENT MC SCH ×2 (08:00→20:00)
--- NOTE | 2022-01-13 10:30 | NUR ---
Diabetes consult: Noted pt w/ hx of DM A1c 8.9. Attempted to provide DM education however pt's demeanor was not appropriate at the time. Pt was attempting to educate me on what people who have diabetes can and cannot eat. He stated that no one w/ DM can have potatoes. Pt was also not pleased w/ his carb control meal trays stating they were 2/3 sugar. Pt was not accepting of information I had to offer. Written DM w/ RD contact info placed in pt chart. Addendum: 01/13/22 at [address] Amended: Links added.
--- NOTE | 2022-01-13 11:42 | NUR ---
6403 b Dieter, Efrain echo is not a STAT order so Echo wont be able to do it till tomorrow. do you want the order changed to STAT? sarah [id number]
[2022-01-13] MEDS: atorvastatin 20mg tablet PO SCH (11:57)
--- NOTE | 2022-01-13 12:00 | NUR ---
PT HAS MET THE HOSPITAL'S PROTOCOL TO BE TREATED WITH SHORT ACTING INSULIN, PT IS REFUSING TO TAKE SHORT ACTING INSULIN AT THIS TIME, CONTINUE TO EDUCATE AND TO MONITOR
--- NOTE | 2022-01-13 12:01 | NUR ---
pt had a 0700 BS of 169 and lunch BS of 176. he has met protocol, but the pt refused having short acting insulin. only takes night time insulin at home.
--- NOTE | 2022-01-13 12:38 | NUR ---
hospitalist said to order echo stat but also ok if echo is completed tomorrow, I notified echo about performing echo in the am tomorrow (01/14)
--- NOTE | 2022-01-13 18:33 | NUR ---
Problems reprioritized. Patient report given, questions answered & plan of care reviewed with jovanna owens. Addendum: 01/14/22 at 0613 by Yolanda Paul RN Patient in room ORTHO 4015. I have received report from jovanna owens and had the opportunity to ask questions and assume patient care.
[2022-01-13] MEDS ORDERED: insulin glargine (Lantus) pen - multi-dose SQ SCH (21:00)
[2022-01-14 02:00] VITALS: BP 137/78
[2022-01-14 06:13] LABS: BASOPHILS # (AUTO) 0.1 X10'3 (0-0.2); BASOPHILS % (AUTO) 0.5 % (0-1); EOSINOPHILS # (AUTO) 0.1 X10'3 (0-0.9); EOSINOPHILS % (AUTO) 1.4 % (0-6); HEMATOCRIT 40.1 % (42.0-52.0); HEMOGLOBIN 13.3 g/dl (14.0-17.9); LYMPHOCYTES # (AUTO) 2.6 X10'3 (1.1-4.8); LYMPHOCYTES % (AUTO) 26.4 % (21-51); MEAN CORPUSCULAR HEMOGLOBIN 30.8 PG (27.0-31.0); MEAN CORPUSCULAR HGB CONC 33.1 g/dL (33.0-36.5); MEAN PLATELET VOLUME 7.8 FL (7.4-10.4); MONOCYTES # (AUTO) 0.9 X10'3 (0-0.9); NEUTROPHILS # (AUTO) 6.2 X10'3 (1.8-7.7); NEUTROPHILS % (AUTO) 62.7 % (42-75); PLATELET COUNT 323 X10'3 (140-440); RED BLOOD COUNT 4.31 X10'6 (4.70-6.10); RED CELL DISTRIBUTION WIDTH 13.4 % (11.5-14.5); WHITE BLOOD COUNT 9.9 X10'3 (4.5-11.0)
[2022-01-14 06:42] LABS: ANION GAP 6 (8-16); BILIRUBIN,TOTAL 0.6 MG/DL (0.1-1.0); BLOOD UREA NITROGEN 25 MG/DL (7-18); CALCIUM 8.7 MG/DL (8.5-10.1); CHLORIDE 108 MMOL/L (99-107); CREATININE 1.19 MG/DL (0.60-1.10); GLUCOSE 174 MG/DL (70-104); POTASSIUM 4.3 MMOL/L (3.5-5.1); SODIUM 139 MMOL/L (135-145); TOTAL CARBON DIOXIDE 25.2 MMOL/L (24-32); eGFR 62 ML/MIN
[2022-01-14 06:43] LABS: ALANINE AMINOTRANSFERASE 18 U/L (12-78); ALBUMIN 2.9 G/DL (3.4-5.0); ALBUMIN/GLOBULIN RATIO 0.9 (1.1-1.5); ALKALINE PHOSPHATASE 46 IU/L (46-116); ASPARTATE AMINO TRANSFERASE 12 U/L (10-37); TOTAL PROTEIN 6.3 G/DL (6.4-8.2)
[2022-01-14 06:45] VITALS: BP 144/78
[2022-01-14] MEDS: clopidogrel 75mg tablet PO SCH (07:04)
[2022-01-14] MEDS: aspirin 81mg tab.chew PO SCH (07:04)
[2022-01-14] MEDS: atorvastatin 20mg tablet PO SCH (07:04)
[2022-01-14] MEDS: docusate sod 100mg capsule PO SCH (07:05)
[2022-01-14] MEDS: heparin, porcine 5000 units/ml vial SQ SCH (07:06)
--- NOTE | 2022-01-14 07:10 | NUR ---
pt refusing short acting insulin still and did refuse his lantus last night.
[2022-01-14] MEDS: K and/or MAG REPLACEMENT MC SCH (08:00)
[2022-01-14] MEDS ORDERED: CLOP75TA34 PO (08:05)
[2022-01-14] MEDS ORDERED: ASPI81TA53 PO (08:05)
[2022-01-14] MEDS ORDERED: ATOR20TA66 PO ×2 (08:05)
[2022-01-14] MEDS ORDERED: METF-1203 PO (08:05)
[2022-01-14] MEDS ORDERED: ATOR40TA PO (08:43)
--- NOTE | 2022-01-14 08:45 | NUR ---
4015b Dieter pt is up ad jose, walking 300 feet in hallway by himself, do you still want pt to see him? [id number] sarah
[2022-01-14 10:00] VITALS: BP 132/80
--- NOTE | 2022-01-14 12:27 | NUR ---
pt is stable and iv is dc, all discharge paperwork was gone over with pt and prescriptions called into pharmacy. pt wanted to walk down to ride, he left in a private vehicle with his and took all his belongings
--- NOTE | 2022-01-14 12:27 | NUR ---
pt refused glucose test for 1200
[2022-01-14] MEDS ORDERED: LISI10TA27 PO (22:46)
== END 2022-01-14 12:24 | disposition home or self-care (01) | DRG 45 ==
LOC: ER 17:58 → ED HOLD 22:29 → ORTHO 4S 23:40
PROVIDERS: ADMIT Internal Medicine; ATTEND Family Medicine
PROC: B3251ZZ Computerized Tomography (CT Scan) of Bilateral Common Carotid Arteries using Low Osmolar Contrast (ICD-10-PCS; principal; 2022-01-12)
PROC: B32G1ZZ Computerized Tomography (CT Scan) of Bilateral Vertebral Arteries using Low Osmolar Contrast (ICD-10-PCS; 2022-01-12)
PROC: B32R1ZZ Computerized Tomography (CT Scan) of Intracranial Arteries using Low Osmolar Contrast (ICD-10-PCS; 2022-01-12)
PROC: B3281ZZ Computerized Tomography (CT Scan) of Bilateral Internal Carotid Arteries using Low Osmolar Contrast (ICD-10-PCS; 2022-01-12)
DX: I63.9 Cerebral infarction, unspecified (principal); E11.40 Type 2 diabetes mellitus with diabetic neuropathy, unspecified; U09.9 Post COVID-19 condition, unspecified; I10 Essential (primary) hypertension; R29.701 NIHSS score 1; Z66 Do not resuscitate; Z87.442 Personal history of urinary calculi; Z88.0 Allergy status to penicillin; Z88.8 Allergy status to other drugs, medicaments and biological substances; Z79.4 Long term (current) use of insulin
CPT/HCPCS: 36415; 70450; 70496; 70498; 70551; 71045; 80053; 80061; 82948; 83036; 83735; 85025; 85610; 85730; 86885; 86900; 86901; 87081; 93306; 97161; 97530; 99285; G0378; J1644; J1815; Q9967

== ENCOUNTER 2022-06-23 09:41 | Inpatient (IN) | payer MEDICAID ==
[~2022-06-23] VITALS: Ht 180.3 cm; Wt 82.0 kg
[~2022-06-23 09:41] MED LIST changes: -ALBU8.5H17 INH; +ASPI81TA53 PO; +CLOP75TA34 PO; -DEXA6TAB PO; -LACT1CAP26 PO; +LISI10TA27 PO; -LISI5TAB22 PO; -ONDA4TAB6 PO
--- NOTE | 2022-06-23 10:02 | NUR ---
Spoke with Dr. Washington regarding the pt's chief complaint. He wanted a Head CT without contrast only.
[2022-06-23] MEDS ORDERED: iohexol 350MG/ML 100ml bottle IV ONE (11:13)
[2022-06-23 11:38] LABS: BASOPHILS # (AUTO) 0.1 X10'3 (0-0.2); BASOPHILS % (AUTO) 0.5 % (0-1); EOSINOPHILS # (AUTO) 0.1 X10'3 (0-0.9); EOSINOPHILS % (AUTO) 0.8 % (0-6); HEMATOCRIT 42.1 % (42.0-52.0); HEMOGLOBIN 14.4 g/dl (14.0-17.9); LYMPHOCYTES % (AUTO) 17.8 % (21-51); MEAN CORPUSCULAR HEMOGLOBIN 31.9 PG (27.0-31.0); MEAN CORPUSCULAR HGB CONC 34.1 g/dL (33.0-36.5); MEAN CORPUSCULAR VOLUME 93.5 FL (78-98); MEAN PLATELET VOLUME 7.8 FL (7.4-10.4); MONOCYTES % (AUTO) 8.9 % (2-12); NEUTROPHILS # (AUTO) 8.1 X10'3 (1.8-7.7); PLATELET COUNT 312 X10'3 (140-440); RED CELL DISTRIBUTION WIDTH 13.2 % (11.5-14.5); WHITE BLOOD COUNT 11.2 X10'3 (4.5-11.0)
[2022-06-23 11:51] LABS: ALANINE AMINOTRANSFERASE 25 U/L (12-78); ALBUMIN 3.2 G/DL (3.4-5.0); ALBUMIN/GLOBULIN RATIO 0.8 (1.1-1.5); ALKALINE PHOSPHATASE 59 IU/L (46-116); ANION GAP 6 (8-16); ASPARTATE AMINO TRANSFERASE 12 U/L (10-37); BILIRUBIN,TOTAL 0.5 MG/DL (0.1-1.0); BLOOD UREA NITROGEN 28 MG/DL (7-18); BUN/CREATININE RATIO 22.6 (5.4-32.0); CALCIUM 9.6 MG/DL (8.5-10.1); CHLORIDE 104 MMOL/L (99-107); CREATININE 1.24 MG/DL (0.60-1.10); GLUCOSE 109 MG/DL (70-104); POTASSIUM 4.2 MMOL/L (3.5-5.1); SODIUM 140 MMOL/L (135-145); TOTAL CARBON DIOXIDE 29.9 MMOL/L (24-32); TOTAL PROTEIN 7.2 G/DL (6.4-8.2); eGFR 59 ML/MIN
--- NOTE | 2022-06-23 12:20 | NUR ---
Success A new connect request was successfully created for: AMINA CHRISTI : 1960 ConnectID: [id number] REASON: Code Stroke TLKW 4.5 to 24 hours ACUITY: Acuity Level 2 SUBMITTED: 06/23/2022 12:19 PST
[2022-06-23] MEDS ORDERED: aspirin 325mg tablet, delayed-release (Ecotrin) PO ONE (13:35)
[2022-06-23] MEDS ORDERED: clopidogrel 300mg tablet PO ONE (13:35)
[2022-06-23] MEDS ORDERED: HYDROcodone/acetaminophen 5mg/325mg tablet PO PRN (13:55)
[2022-06-23] MEDS ORDERED: potassium Cl 40MEQ/1/2NS 520ml 520 ML IV PRN (13:55)
[2022-06-23] MEDS ORDERED: magnesium 4gm in 100ml NS 100 ML IV PRN (13:55)
[2022-06-23] MEDS ORDERED: magnesium hydroxide 30ml (MOM) UD suspension PO PRN (13:55)
[2022-06-23] MEDS ORDERED: potassium Cl 20 mEq SR tablet PO PRN ×2 (13:55)
[2022-06-23] MEDS ORDERED: magnesium Cl slow-release 64mg tablet PO PRN (13:55)
[2022-06-23] MEDS ORDERED: ondansetron/PF 4mg/2ml inj IV PRN (13:55)
[2022-06-23] MEDS ORDERED: mag hydrox/Alum hydrox/simeth 30ml oral suspension PO PRN (13:55)
[2022-06-23] MEDS ORDERED: acetaminophen 325mg tablet PO PRN (13:55)
[2022-06-23] MEDS ORDERED: MESSAGE TO PHARMACY PO ONE (14:10)
[2022-06-23] MEDS ORDERED: glucagon, human recombinant 1mg kit SUBCUT PRN (14:10)
[2022-06-23] MEDS ORDERED: insulin Lispro (HumaLOG) vial - multi-dose SQ SCH (14:10)
[2022-06-23] MEDS ORDERED: dextrose 50%-water 50ml dispensing syringe IV PRN ×2 (14:10)
[2022-06-23] MEDS ORDERED: DEXTROSE 15 GM of carb/4 tabs (each vial/BOTTLE has 4 tablets) PO PRN ×2 (14:10)
[2022-06-23] MEDS ORDERED: BUDE0.5A3 NEB (14:26)
[2022-06-23] MEDS: K and/or MAG REPLACEMENT MC SCH (15:06)
[2022-06-23 15:18] LABS: HEMOGLOBIN A1C 7.8 % (4.5-6.2)
[2022-06-23] MEDS: atorvastatin 20mg tablet PO SCH (15:39)
[2022-06-23] MEDS ORDERED: PERFLUTREN PROTEIN-A MICROSPHR (Optison) 0.22 MG/ML 3ML VIAL IV ONE (15:40)
[2022-06-23] MEDS ORDERED: budesonide 0.5mg/2ml UD nebule IH PRN (15:45)
[2022-06-23] MEDS ORDERED: ALPRAZolam 0.5mg tablet PO ONE (16:57)
--- NOTE | 2022-06-23 19:16 | NUR ---
REPORT CALLED TO FLOOR NURSE. PT TX TO FLOOR
[2022-06-23 19:39] VITALS: BP 130/76
[2022-06-23] MEDS: docusate sod 100mg capsule PO SCH (19:45)
[2022-06-23] MEDS: insulin glargine (Lantus) pen - multi-dose SQ SCH (21:00)
--- NOTE | 2022-06-23 21:04 | NUR ---
Patient refused to have 2100 Blood sugar taken as he states he only takes it once a day at home. Patient request honored at this time to not have his blood sugar taken.
[2022-06-24 02:00] VITALS: BP 118/72
[2022-06-24 06:00] VITALS: BP 137/81
--- NOTE | 2022-06-24 06:00 | NUR ---
Patient in room PCU 3016. I have received report from Terri MARINA and had the opportunity to ask questions and assume patient care.
[2022-06-24] MEDS: docusate sod 100mg capsule PO SCH ×2 (07:39→20:36)
[2022-06-24] MEDS: clopidogrel 75mg tablet PO SCH (07:39)
[2022-06-24] MEDS: atorvastatin 20mg tablet PO SCH (07:39)
[2022-06-24] MEDS: aspirin 81mg, enteric-coated 1 TAB TABLET.DR PO SCH (07:39)
[2022-06-24] MEDS: enoxaparin 40mg/0.4ml syringe SUBCUT SCH (07:41)
[2022-06-24] MEDS: K and/or MAG REPLACEMENT MC SCH ×2 (07:42→20:00)
[2022-06-24] MEDS ORDERED: insulin glargine (Lantus) pen - multi-dose SQ SCH (08:00)
[2022-06-24] MEDS ORDERED: aspirin 81mg tab.chew PO SCH (08:30)
--- NOTE | 2022-06-24 09:00 | NUR ---
Patient refused morning insulin.
[2022-06-24 09:11] LABS: BASOPHILS # (AUTO) 0.1 X10'3 (0-0.2); BASOPHILS % (AUTO) 0.7 % (0-1); EOSINOPHILS # (AUTO) 0.1 X10'3 (0-0.9); EOSINOPHILS % (AUTO) 1.3 % (0-6); HEMATOCRIT 42.2 % (42.0-52.0); LYMPHOCYTES # (AUTO) 2.2 X10'3 (1.1-4.8); LYMPHOCYTES % (AUTO) 22.7 % (21-51); MEAN CORPUSCULAR HEMOGLOBIN 31.5 PG (27.0-31.0); MEAN CORPUSCULAR HGB CONC 33.3 g/dL (33.0-36.5); MEAN CORPUSCULAR VOLUME 94.9 FL (78-98); MEAN PLATELET VOLUME 8.1 FL (7.4-10.4); MONOCYTES % (AUTO) 9.8 % (2-12); NEUTROPHILS # (AUTO) 6.4 X10'3 (1.8-7.7); NEUTROPHILS % (AUTO) 65.5 % (42-75); PLATELET COUNT 283 X10'3 (140-440); RED BLOOD COUNT 4.45 X10'6 (4.70-6.10); RED CELL DISTRIBUTION WIDTH 13.5 % (11.5-14.5); WHITE BLOOD COUNT 9.7 X10'3 (4.5-11.0)
[2022-06-24 09:13] LABS: ANION GAP 9 (8-16); BILIRUBIN,TOTAL 0.6 MG/DL (0.1-1.0); BLOOD UREA NITROGEN 25 MG/DL (7-18); BUN/CREATININE RATIO 22.5 (5.4-32.0); CALCIUM 9.2 MG/DL (8.5-10.1); CHLORIDE 104 MMOL/L (99-107); CREATININE 1.11 MG/DL (0.60-1.10); GLUCOSE 133 MG/DL (70-104); POTASSIUM 4.2 MMOL/L (3.5-5.1); SODIUM 136 MMOL/L (135-145); TOTAL CARBON DIOXIDE 22.7 MMOL/L (24-32); eGFR 67 ML/MIN
[2022-06-24 09:14] LABS: ALANINE AMINOTRANSFERASE 20 U/L (12-78); ALBUMIN 2.7 G/DL (3.4-5.0); ALBUMIN/GLOBULIN RATIO 0.7 (1.1-1.5); ALKALINE PHOSPHATASE 51 IU/L (46-116); ASPARTATE AMINO TRANSFERASE 15 U/L (10-37); CHOL/HDL RATIO 3.7 (0.00-4.99); CHOLESTEROL 208 MG/DL (0-200); HDL CHOLESTEROL 56 MG/DL (35-60); LDL CHOLESTEROL 131 MG/DL (50-100); TOTAL PROTEIN 6.6 G/DL (6.4-8.2); TRIGLYCERIDES 78 MG/DL (20-135)
--- NOTE | 2022-06-24 10:46 | NUR ---
Diabetes consult: Pt w/ hx of DM A1c 7.8, down from 8.9 in December of this year per EMR. Pt previously not accepting of DM ed on last admit, written DM ed w/ RD contact info placed in pt chart. Addendum: 06/24/22 at [address] Amended: Links added.
[2022-06-24 15:29] VITALS: BP 146/92
--- NOTE | 2022-06-24 17:15 | NUR ---
DRIED FRUIT WASHER documentation: I have reviewed and agree with all interventions, assessments performed and documented by CRUZ VÁSQUEZ.
--- NOTE | 2022-06-24 17:16 | NUR ---
CRUZ Medication Administration: For this medication-pass time frame, all medication were reviewed, dispensed, administered and documented per hospital policy by CRUZ VÁSQUEZ.
--- NOTE | 2022-06-24 17:36 | NUR ---
Took care of patient today. Checked patient blood sugar throughout the day and didn't meet protocol. patient was seen by MD and MRI c spine was ordered. Patient walked around unit today with and worked with PT. Patient had several visitors throughout the day.
[2022-06-24 18:00] VITALS: BP 140/83
--- NOTE | 2022-06-24 18:30 | NUR ---
Patient in room PCU 3016. I have received report from claudia and had the opportunity to ask questions and assume patient care.
--- NOTE | 2022-06-24 19:07 | NUR ---
Problems reprioritized. Patient report given, questions answered & plan of care reviewed with Jesse ARROYO.
[2022-06-24] MEDS: insulin glargine (Lantus) pen - multi-dose SQ SCH (20:35)
[2022-06-25 02:00] VITALS: BP 147/86
[2022-06-25 06:00] VITALS: BP 155/85
--- NOTE | 2022-06-25 06:14 | NUR ---
Problems reprioritized. Patient report given, questions answered & plan of care reviewed with
[2022-06-25 06:47] LABS: BASOPHILS # (AUTO) 0.1 X10'3 (0-0.2); BASOPHILS % (AUTO) 0.6 % (0-1); EOSINOPHILS # (AUTO) 0.2 X10'3 (0-0.9); EOSINOPHILS % (AUTO) 1.8 % (0-6); HEMATOCRIT 41.4 % (42.0-52.0); HEMOGLOBIN 13.8 g/dl (14.0-17.9); LYMPHOCYTES # (AUTO) 2.3 X10'3 (1.1-4.8); LYMPHOCYTES % (AUTO) 25.5 % (21-51); MEAN CORPUSCULAR HEMOGLOBIN 31.5 PG (27.0-31.0); MEAN CORPUSCULAR HGB CONC 33.2 g/dL (33.0-36.5); MEAN CORPUSCULAR VOLUME 94.6 FL (78-98); MEAN PLATELET VOLUME 7.8 FL (7.4-10.4); MONOCYTES # (AUTO) 0.9 X10'3 (0-0.9); NEUTROPHILS # (AUTO) 5.7 X10'3 (1.8-7.7); NEUTROPHILS % (AUTO) 62.1 % (42-75); PLATELET COUNT 318 X10'3 (140-440); RED BLOOD COUNT 4.38 X10'6 (4.70-6.10); RED CELL DISTRIBUTION WIDTH 13.2 % (11.5-14.5); WHITE BLOOD COUNT 9.1 X10'3 (4.5-11.0)
--- NOTE | 2022-06-25 06:49 | NUR ---
Patient in room PCU 3016. I have received report from SALAS Molina and had the opportunity to ask questions and assume patient care.
[2022-06-25 06:56] LABS: ALANINE AMINOTRANSFERASE 20 U/L (12-78); ALBUMIN 2.9 G/DL (3.4-5.0); ALBUMIN/GLOBULIN RATIO 0.8 (1.1-1.5); ALKALINE PHOSPHATASE 52 IU/L (46-116); ANION GAP 7 (8-16); ASPARTATE AMINO TRANSFERASE 12 U/L (10-37); BILIRUBIN,TOTAL 0.6 MG/DL (0.1-1.0); BLOOD UREA NITROGEN 25 MG/DL (7-18); BUN/CREATININE RATIO 19.5 (5.4-32.0); CALCIUM 8.9 MG/DL (8.5-10.1); CHLORIDE 104 MMOL/L (99-107); CREATININE 1.28 MG/DL (0.60-1.10); GLUCOSE 140 MG/DL (70-104); MAGNESIUM 1.9 MG/DL (1.5-2.4); POTASSIUM 4.1 MMOL/L (3.5-5.1); SODIUM 138 MMOL/L (135-145); TOTAL CARBON DIOXIDE 26.8 MMOL/L (24-32); TOTAL PROTEIN 6.4 G/DL (6.4-8.2); eGFR 57 ML/MIN
[2022-06-25] MEDS: K and/or MAG REPLACEMENT MC SCH (08:00)
[2022-06-25] MEDS: docusate sod 100mg capsule PO SCH (08:31)
[2022-06-25] MEDS: atorvastatin 20mg tablet PO SCH (08:31)
[2022-06-25] MEDS: clopidogrel 75mg tablet PO SCH (08:32)
[2022-06-25] MEDS: aspirin 81mg, enteric-coated 1 TAB TABLET.DR PO SCH (08:32)
[2022-06-25] MEDS: enoxaparin 40mg/0.4ml syringe SUBCUT SCH (08:32)
[2022-06-25] MEDS ORDERED: ALPRAZolam 0.25mg tablet PO ONE (08:45)
[2022-06-25 11:00] VITALS: BP 119/77
--- NOTE | 2022-06-25 13:22 | NUR ---
Patient met protocol for the blood sugar but he refuses insulin. Patient and state that he would rather walk than take insulin. Patient states that he will think about it later.
--- NOTE | 2022-06-25 13:28 | NUR ---
PAGER ID: [phone] MESSAGE: Leonor [phone] - RE: Rl Garcias room 3016B - the C spine MRI is resulted. Patient is wondering if he is going to be discharged.
[2022-06-25] MEDS ORDERED: CLOP75TA34 PO (13:44)
[2022-06-25] MEDS ORDERED: LISI2.5T14 PO (13:46)
[2022-06-25] MEDS ORDERED: ATOR20TA66 PO (13:46)
--- NOTE | 2022-06-25 16:30 | NUR ---
Patient was discharged at 1630 with instructions and verbalizing understanding of instructions, in wheelchair accompanied by nursing staff and spouse going home via private vehicle. Education has been provided at bedside and all questions have been answered. All lines and tubes including PIV with cannula intact and tele monitor were removed. Patient is stable and appropriate for discharge.
== END 2022-06-25 16:36 | disposition home or self-care (01) | DRG 861 ==
LOC: ER 09:42 → ED HOLD 14:05 → PCU 3S 19:20
PROVIDERS: ADMIT Internal Medicine; ATTEND Internal Medicine
DX: R53.1 Weakness (principal); G93.89 Other specified disorders of brain; E11.9 Type 2 diabetes mellitus without complications; E78.5 Hyperlipidemia, unspecified; I10 Essential (primary) hypertension; I48.91 Unspecified atrial fibrillation; I65.23 Occlusion and stenosis of bilateral carotid arteries; M54.2 Cervicalgia; Z86.73 Personal history of transient ischemic attack (TIA), and cerebral infarction without residual deficits; Z79.4 Long term (current) use of insulin; Z86.16 Personal history of COVID-19; Z88.0 Allergy status to penicillin; Z88.8 Allergy status to other drugs, medicaments and biological substances; Z79.899 Other long term (current) drug therapy
CPT/HCPCS: 36415; 70450; 70496; 70498; 70551; 71045; 72141; 80053; 80061; 82948; 83036; 83735; 84443; 84484; 85025; 87081; 92508; 92616; 93005; 93306; 93880; 94640; 94760; 97161; 99285; G0378; J1650; J1815; J3490; J7030; Q9967

== ENCOUNTER 2023-07-17 19:54 | Inpatient (IN) | payer MEDICAID ==
[~2023-07-17] VITALS: Ht 180.3 cm; Wt 84.0 kg
[~2023-07-17 19:54] MED LIST changes: +ATOR20TA66 PO; +BUDE0.5A3 NEB; -LISI10TA27 PO; +LISI2.5T14 PO; +heparin 10,000 units/1 ML INJ ONE; +nitroGLYCERIN 0.4mg SUBLingual tab SL ONE
[2023-07-17] MEDS ORDERED: morphine 2 MG/ML inj. syringe IV ONE (20:00)
[2023-07-17] MEDS ORDERED: heparin 10,000 units/1 ML INJ IV ONE ×2 (20:10)
[2023-07-17] MEDS ORDERED: LIDOcaine 1% (10mg/ml) 2ml vial ONE (20:10)
[2023-07-17] MEDS ORDERED: nitroGLYCERIN 500mcg/5mL D5W 5 ML IV ONE (20:11)
[2023-07-17] MEDS ORDERED: iohexol 350MG/ML 100ml bottle IV ONE (20:11)
[2023-07-17] MEDS ORDERED: heparin 1,000unit/ml 10ml vial 10 ML ONE (20:11)
[2023-07-17] MEDS ORDERED: midazolam 1 mg/ML 2ml injection ONE (20:11)
[2023-07-17] MEDS ORDERED: fentaNYL/PF 50MCG/1 ML 2ML syringe ONE (20:11)
[2023-07-17] MEDS ORDERED: verapamil 2.5 mg/ml inj IV ONE (20:11)
[2023-07-17] MEDS ORDERED: nitroGLYCERIN 0.4mg SUBLingual tab SL PRN ×2 (20:15→22:30)
[2023-07-17] MEDS ORDERED: normal saline 1000ml 1,000 ML IV ONE (20:15)
[2023-07-17] MEDS ORDERED: epiNEPHrine 0.1mg/ml 10ml syringe ONE (20:26)
[2023-07-17] MEDS ORDERED: ticagrelor 90mg tablet ONE (20:26)
[2023-07-17] MEDS ORDERED: atropine 0.1mg/ml 10ml syringe ONE (20:26)
[2023-07-17] MEDS ORDERED: ondansetron/PF 4mg/2ml inj ONE (20:27)
[2023-07-17] MEDS ORDERED: NORepinephrine 1 mg/ml inj IV ONE (20:31)
[2023-07-17] MEDS ORDERED: LIDOcaine 1% (10mg/ml)w/preservative inj. 20ml MDV ONE (20:32)
[2023-07-17 20:40] LABS: BASOPHILS # (AUTO) 0.1 X10'3 (0-0.2); BASOPHILS % (AUTO) 0.7 % (0-1); EOSINOPHILS # (AUTO) 0.1 X10'3 (0-0.9); HEMATOCRIT 37.9 % (42.0-52.0); HEMOGLOBIN 12.6 g/dl (14.0-17.9); LYMPHOCYTES # (AUTO) 3.1 X10'3 (1.1-4.8); LYMPHOCYTES % (AUTO) 23.6 % (21-51); MEAN CORPUSCULAR HEMOGLOBIN 32.2 PG (27.0-31.0); MEAN CORPUSCULAR HGB CONC 33.4 g/dL (33.0-36.5); MEAN CORPUSCULAR VOLUME 96.3 FL (78-98); MEAN PLATELET VOLUME 8.1 FL (7.4-10.4); MONOCYTES # (AUTO) 1.1 X10'3 (0-0.9); MONOCYTES % (AUTO) 8.8 % (2-12); NEUTROPHILS # (AUTO) 8.6 X10'3 (1.8-7.7); NEUTROPHILS % (AUTO) 65.9 % (42-75); PLATELET COUNT 325 X10'3 (140-440); RED BLOOD COUNT 3.93 X10'6 (4.70-6.10); RED CELL DISTRIBUTION WIDTH 14.2 % (11.5-14.5); WHITE BLOOD COUNT 13.1 X10'3 (4.5-11.0)
[2023-07-17] MEDS ORDERED: amiodarone 50MG/ML inj IV ONE (20:46)
[2023-07-17 20:54] LABS: ALANINE AMINOTRANSFERASE 30 U/L (12-78); ALBUMIN 3.2 G/DL (3.4-5.0); ALBUMIN/GLOBULIN RATIO 0.9 (1.1-1.5); ALKALINE PHOSPHATASE 62 IU/L (46-116); ANION GAP 6 (8-16); ASPARTATE AMINO TRANSFERASE 15 U/L (10-37); BILIRUBIN,TOTAL 0.4 MG/DL (0.1-1.0); BLOOD UREA NITROGEN 29 MG/DL (7-18); CHLORIDE 105 MMOL/L (99-107); CREATININE 1.53 MG/DL (0.60-1.10); GLUCOSE 305 MG/DL (70-104); POTASSIUM 3.9 MMOL/L (3.5-5.1); SODIUM 137 MMOL/L (135-145); TOTAL CARBON DIOXIDE 26.1 MMOL/L (24-32); TOTAL PROTEIN 6.9 G/DL (6.4-8.2); eCRCL 52 ML/MIN; eGFR 46 ML/MIN
[2023-07-17 21:03] LABS: PRO BRAIN NATRIURETIC PEPTIDE 174 PG/ML (0-125)
[2023-07-17 21:15] VITALS: BP 127/81; PULSE 92; RESP 16; O2SAT 90
[2023-07-17] MEDS ORDERED: dextrose 50%-water 50ml dispensing syringe IV PRN ×3 (21:25→22:00)
[2023-07-17] MEDS ORDERED: Insulin Reg/NS 100units/100mL 100 ML IV SCH (21:25)
[2023-07-17 21:30] VITALS: BP 127/78; PULSE 93; RESP 18; O2SAT 90
[2023-07-17 21:45] VITALS: BP 135/83; PULSE 91; RESP 18; O2SAT 90
[2023-07-17] MEDS ORDERED: acetaminophen 325mg tablet PO PRN (21:55)
[2023-07-17] MEDS ORDERED: potassium Cl 40MEQ/1/2NS 520ml 520 ML IV PRN (21:55)
[2023-07-17] MEDS ORDERED: PERFLUTREN PROTEIN-A MICROSPHR (Optison) 0.22 MG/ML 3ML VIAL IV ONE (21:55)
[2023-07-17] MEDS ORDERED: potassium Cl 20 mEq SR tablet PO PRN ×2 (21:55)
[2023-07-17] MEDS ORDERED: magnesium hydroxide 30ml (MOM) UD suspension PO PRN (21:55)
[2023-07-17] MEDS ORDERED: magnesium 4gm in 100ml NS 100 ML IV PRN (21:55)
[2023-07-17] MEDS ORDERED: magnesium 2GM in 50ml NS 50 ML IV PRN (21:55)
[2023-07-17] MEDS ORDERED: HYDROcodone/acetaminophen 5mg/325mg tablet PO PRN (21:55)
[2023-07-17] MEDS ORDERED: mag hydrox/Alum hydrox/simeth 30ml oral suspension PO PRN (21:55)
[2023-07-17] MEDS ORDERED: magnesium Cl slow-release 64mg tablet PO PRN (21:55)
[2023-07-17] MEDS ORDERED: ondansetron/PF 4mg/2ml inj IV PRN ×2 (21:55→22:25)
[2023-07-17 22:00] VITALS: BP 127/81; PULSE 92; RESP 16; TEMP 98; O2SAT 90
[2023-07-17] MEDS ORDERED: glucagon, human recombinant 1mg kit SUBCUT PRN (22:00)
[2023-07-17] MEDS ORDERED: MESSAGE TO PHARMACY PO ONE (22:00)
[2023-07-17] MEDS ORDERED: DEXTROSE 15 GM of carb/4 tabs (each vial/BOTTLE has 4 tablets) PO PRN ×2 (22:00)
[2023-07-17 22:30] VITALS: BP 141/79; PULSE 99; RESP 18; O2SAT 92
[2023-07-17] MEDS: atorvastatin 20mg tablet PO SCH (22:39)
[2023-07-17 23:00] VITALS: BP 127/78; PULSE 96; RESP 18; O2SAT 95
[2023-07-17] MEDS: metoprolol tartrate 25mg tablet PO SCH (23:37)
[2023-07-17] MEDS: HYDROcodone/acetaminophen 10/325mg tab PO PRN (23:38)
[2023-07-17] MEDS: normal saline 1000ml 1,000 ML IV SCH (23:55)
[2023-07-18] VITALS (10 sets, daily range): BP systolic 101–166; BP diastolic 61–91; PULSE 90–111; RESP 15–18; TEMP 97.6–98.4; O2SAT 92–100
[2023-07-18 06:42] LABS: BASOPHILS % (AUTO) 0.3 % (0-1); EOSINOPHILS % (AUTO) 0.3 % (0-6); HEMATOCRIT 35.2 % (42.0-52.0); HEMOGLOBIN 11.9 g/dl (14.0-17.9); LYMPHOCYTES % (AUTO) 14.9 % (21-51); MEAN CORPUSCULAR HEMOGLOBIN 32.1 PG (27.0-31.0); MEAN CORPUSCULAR HGB CONC 33.7 g/dL (33.0-36.5); MEAN CORPUSCULAR VOLUME 95.3 FL (78-98); MEAN PLATELET VOLUME 8.2 FL (7.4-10.4); MONOCYTES # (AUTO) 1.2 X10'3 (0-0.9); MONOCYTES % (AUTO) 9.1 % (2-12); NEUTROPHILS # (AUTO) 10.3 X10'3 (1.8-7.7); NEUTROPHILS % (AUTO) 75.4 % (42-75); PLATELET COUNT 293 X10'3 (140-440); RED CELL DISTRIBUTION WIDTH 13.9 % (11.5-14.5); WHITE BLOOD COUNT 13.6 X10'3 (4.5-11.0)
[2023-07-18] MEDS ORDERED: insulin Lispro (HumaLOG) vial - multi-dose SQ SCH (07:00)
[2023-07-18 07:28] LABS: ALANINE AMINOTRANSFERASE 75 U/L (12-78); ALBUMIN 2.7 G/DL (3.4-5.0); ALBUMIN/GLOBULIN RATIO 0.8 (1.1-1.5); ALKALINE PHOSPHATASE 54 IU/L (46-116); ANION GAP 7 (8-16); ASPARTATE AMINO TRANSFERASE 235 U/L (10-37); BILIRUBIN,TOTAL 0.7 MG/DL (0.1-1.0); BLOOD UREA NITROGEN 25 MG/DL (7-18); BUN/CREATININE RATIO 18.4 (10.0-20.0); CALCIUM 8.4 MG/DL (8.5-10.1); CHLORIDE 108 MMOL/L (99-107); CHOL/HDL RATIO 3.5 (0.00-4.99); CHOLESTEROL 183 MG/DL (0-200); CREATININE 1.36 MG/DL (0.60-1.10); GLUCOSE 198 MG/DL (70-104); HDL CHOLESTEROL 53 MG/DL (35-60); LDL CHOLESTEROL 113 MG/DL (50-100); MAGNESIUM 1.8 MG/DL (1.5-2.4); POTASSIUM 3.9 MMOL/L (3.5-5.1); SODIUM 142 MMOL/L (135-145); TOTAL CARBON DIOXIDE 26.8 MMOL/L (24-32); TOTAL PROTEIN 6.1 G/DL (6.4-8.2); TRIGLYCERIDES 80 MG/DL (20-135); eCRCL 58 ML/MIN; eGFR 53 ML/MIN
[2023-07-18] MEDS: docusate sod 100mg capsule PO SCH ×2 (07:55→19:56)
[2023-07-18] MEDS: ticagrelor 90mg tablet PO SCH ×2 (07:55→19:56)
[2023-07-18] MEDS: normal saline 1000ml 1,000 ML IV SCH ×2 (07:55→17:55)
[2023-07-18] MEDS: aspirin 81mg, enteric-coated 1 TAB TABLET.DR PO SCH (07:55)
[2023-07-18] MEDS: metoprolol tartrate 25mg tablet PO SCH (07:56)
[2023-07-18] MEDS: K and/or MAG REPLACEMENT MC SCH ×2 (08:00→18:59)
[2023-07-18 08:59] LABS: HEMOGLOBIN A1C 8.9 % (4.5-6.2)
[2023-07-18] MEDS ORDERED: proCHLORperazine 10 MG/2 ml inj IV PRN (09:50)
[2023-07-18] MEDS: proCHLORperazine 10 MG/2 ml inj IV PRN ×2 (11:00→17:10)
[2023-07-18] MEDS: HYDROcodone/acetaminophen 10/325mg tab PO PRN ×3 (11:30→23:38)
[2023-07-18] MEDS: insulin Lispro (HumaLOG) vial - multi-dose SQ SCH (17:21)
[2023-07-18] MEDS: atorvastatin 20mg tablet PO SCH (20:01)
[2023-07-18] MEDS: insulin glargine (Lantus) pen - multi-dose SQ SCH (21:00)
[2023-07-19] VITALS (7 sets, daily range): BP systolic 116–140; BP diastolic 69–83; PULSE 79–94; RESP 16–20; TEMP 97.6–98.8; O2SAT 96–100
[2023-07-19] MEDS: normal saline 1000ml 1,000 ML IV SCH ×3 (04:33→23:55)
[2023-07-19 06:39] LABS: ALANINE AMINOTRANSFERASE 64 U/L (12-78); ALBUMIN 2.8 G/DL (3.4-5.0); ALBUMIN/GLOBULIN RATIO 0.8 (1.1-1.5); ALKALINE PHOSPHATASE 49 IU/L (46-116); ANION GAP 8 (8-16); ASPARTATE AMINO TRANSFERASE 105 U/L (10-37); BLOOD UREA NITROGEN 32 MG/DL (7-18); BUN/CREATININE RATIO 21.9 (10.0-20.0); CALCIUM 8.4 MG/DL (8.5-10.1); CHLORIDE 105 MMOL/L (99-107); CREATININE 1.46 MG/DL (0.60-1.10); GLUCOSE 220 MG/DL (70-104); MAGNESIUM 1.7 MG/DL (1.5-2.4); POTASSIUM 3.5 MMOL/L (3.5-5.1); SODIUM 138 MMOL/L (135-145); TOTAL CARBON DIOXIDE 25.5 MMOL/L (24-32); TOTAL PROTEIN 6.4 G/DL (6.4-8.2); eCRCL 54 ML/MIN; eGFR 49 ML/MIN
[2023-07-19 06:40] LABS: BASOPHILS % (AUTO) 0.2 % (0-1); EOSINOPHILS % (AUTO) 0.3 % (0-6); HEMATOCRIT 34.7 % (42.0-52.0); HEMOGLOBIN 11.5 g/dl (14.0-17.9); LYMPHOCYTES # (AUTO) 2.1 X10'3 (1.1-4.8); LYMPHOCYTES % (AUTO) 11.9 % (21-51); MEAN CORPUSCULAR HEMOGLOBIN 31.8 PG (27.0-31.0); MEAN CORPUSCULAR HGB CONC 33.2 g/dL (33.0-36.5); MEAN CORPUSCULAR VOLUME 95.8 FL (78-98); MEAN PLATELET VOLUME 8.1 FL (7.4-10.4); MONOCYTES # (AUTO) 1.6 X10'3 (0-0.9); MONOCYTES % (AUTO) 9.1 % (2-12); NEUTROPHILS # (AUTO) 14.1 X10'3 (1.8-7.7); NEUTROPHILS % (AUTO) 78.5 % (42-75); PLATELET COUNT 287 X10'3 (140-440); RED BLOOD COUNT 3.62 X10'6 (4.70-6.10); RED CELL DISTRIBUTION WIDTH 14.2 % (11.5-14.5)
[2023-07-19] MEDS: K and/or MAG REPLACEMENT MC SCH ×2 (07:59→20:00)
[2023-07-19] MEDS: aspirin 81mg, enteric-coated 1 TAB TABLET.DR PO SCH (08:05)
[2023-07-19] MEDS: ticagrelor 90mg tablet PO SCH ×2 (08:06→19:39)
[2023-07-19] MEDS: docusate sod 100mg capsule PO SCH ×2 (08:06→19:39)
[2023-07-19] MEDS: insulin Lispro (HumaLOG) vial - multi-dose SQ SCH (08:48)
[2023-07-19] MEDS: HYDROcodone/acetaminophen 5mg/325mg tablet PO PRN (19:44)
[2023-07-19] MEDS: atorvastatin 20mg tablet PO SCH (21:00)
[2023-07-19] MEDS: insulin glargine (Lantus) pen - multi-dose SQ SCH (21:00)
[2023-07-20] VITALS (7 sets, daily range): BP systolic 100–143; BP diastolic 70–83; PULSE 84–98; RESP 13–18; TEMP 97.7–98.7; O2SAT 96–100
[2023-07-20] MEDS: HYDROcodone/acetaminophen 10/325mg tab PO PRN (00:40)
[2023-07-20] MEDS ORDERED: heparin 10,000 units/1 ML INJ IV PRN ×2 (02:30→02:50)
[2023-07-20] MEDS ORDERED: heparin 10,000 units/1 ML INJ IV ONE ×2 (02:30→02:50)
[2023-07-20] MEDS ORDERED: heparin 25,000 UNIT/250ml bag 250 ML IV PRN ×2 (02:30→02:50)
[2023-07-20 07:20] LABS: EOSINOPHILS # (AUTO) 0.2 X10'3 (0-0.9); HEMOGLOBIN 11.8 g/dl (14.0-17.9); MEAN CORPUSCULAR HEMOGLOBIN 32.4 PG (27.0-31.0); MONOCYTES # (AUTO) 1.2 X10'3 (0-0.9); RED BLOOD COUNT 3.64 X10'6 (4.70-6.10)
[2023-07-20 07:24] LABS: BASOPHILS # (AUTO) 0.1 X10'3 (0-0.2); BASOPHILS % (AUTO) 0.8 % (0-1); EOSINOPHILS % (AUTO) 1.5 % (0-6); HEMATOCRIT 35.2 % (42.0-52.0); LYMPHOCYTES # (AUTO) 2.6 X10'3 (1.1-4.8); LYMPHOCYTES % (AUTO) 21.1 % (21-51); MEAN CORPUSCULAR HGB CONC 33.5 g/dL (33.0-36.5); MEAN CORPUSCULAR VOLUME 96.7 FL (78-98); MEAN PLATELET VOLUME 8.2 FL (7.4-10.4); MONOCYTES % (AUTO) 9.8 % (2-12); NEUTROPHILS # (AUTO) 8.3 X10'3 (1.8-7.7); NEUTROPHILS % (AUTO) 66.8 % (42-75); PLATELET COUNT 269 X10'3 (140-440); RED CELL DISTRIBUTION WIDTH 14.4 % (11.5-14.5); WHITE BLOOD COUNT 12.5 X10'3 (4.5-11.0)
[2023-07-20] MEDS: K and/or MAG REPLACEMENT MC SCH ×2 (08:00→20:00)
[2023-07-20] MEDS: insulin glargine (Lantus) pen - multi-dose SQ SCH (08:00)
[2023-07-20 08:29] LABS: ALANINE AMINOTRANSFERASE 47 U/L (12-78); ALBUMIN 2.5 G/DL (3.4-5.0); ALBUMIN/GLOBULIN RATIO 0.6 (1.1-1.5); ALKALINE PHOSPHATASE 51 IU/L (46-116); ANION GAP 15 (8-16); ASPARTATE AMINO TRANSFERASE 65 U/L (10-37); BILIRUBIN,TOTAL 0.8 MG/DL (0.1-1.0); BLOOD UREA NITROGEN 29 MG/DL (7-18); BUN/CREATININE RATIO 21.8 (10.0-20.0); CALCIUM 8.3 MG/DL (8.5-10.1); CHLORIDE 107 MMOL/L (99-107); CREATININE 1.33 MG/DL (0.60-1.10); GLUCOSE 160 MG/DL (70-104); POTASSIUM 3.7 MMOL/L (3.5-5.1); SODIUM 140 MMOL/L (135-145); TOTAL CARBON DIOXIDE 17.8 MMOL/L (24-32); TOTAL PROTEIN 6.4 G/DL (6.4-8.2); eCRCL 60 ML/MIN; eGFR 54 ML/MIN
[2023-07-20] MEDS: docusate sod 100mg capsule PO SCH ×2 (08:37→20:31)
[2023-07-20] MEDS: aspirin 81mg, enteric-coated 1 TAB TABLET.DR PO SCH (08:37)
[2023-07-20] MEDS: ticagrelor 90mg tablet PO SCH ×2 (08:37→20:31)
[2023-07-20] MEDS: normal saline 1000ml 1,000 ML IV SCH ×2 (09:55→19:55)
[2023-07-20] MEDS: HYDROcodone/acetaminophen 5mg/325mg tablet PO PRN (20:32)
[2023-07-20] MEDS: atorvastatin 20mg tablet PO SCH (21:00)
[2023-07-21] VITALS (13 sets, daily range): BP systolic 137–159; BP diastolic 74–90; PULSE 67–87; RESP 14–22; TEMP 97–98.6; O2SAT 97–100
[2023-07-21] MEDS: HYDROcodone/acetaminophen 10/325mg tab PO PRN ×2 (00:12→19:14)
[2023-07-21 06:11] LABS: BASOPHILS # (AUTO) 0.1 X10'3 (0-0.2); BASOPHILS % (AUTO) 0.6 % (0-1); EOSINOPHILS # (AUTO) 0.2 X10'3 (0-0.9); EOSINOPHILS % (AUTO) 1.8 % (0-6); HEMATOCRIT 30.8 % (42.0-52.0); HEMOGLOBIN 10.7 g/dl (14.0-17.9); LYMPHOCYTES # (AUTO) 1.5 X10'3 (1.1-4.8); LYMPHOCYTES % (AUTO) 15.9 % (21-51); MEAN CORPUSCULAR HEMOGLOBIN 33.2 PG (27.0-31.0); MEAN CORPUSCULAR HGB CONC 34.6 g/dL (33.0-36.5); MEAN CORPUSCULAR VOLUME 95.9 FL (78-98); MEAN PLATELET VOLUME 8.4 FL (7.4-10.4); MONOCYTES # (AUTO) 1.1 X10'3 (0-0.9); MONOCYTES % (AUTO) 11.4 % (2-12); NEUTROPHILS # (AUTO) 6.8 X10'3 (1.8-7.7); NEUTROPHILS % (AUTO) 70.3 % (42-75); PLATELET COUNT 246 X10'3 (140-440); RED BLOOD COUNT 3.21 X10'6 (4.70-6.10); RED CELL DISTRIBUTION WIDTH 14.1 % (11.5-14.5); WHITE BLOOD COUNT 9.7 X10'3 (4.5-11.0)
[2023-07-21 06:24] LABS: ALANINE AMINOTRANSFERASE 35 U/L (12-78); ALBUMIN 2.3 G/DL (3.4-5.0); ALBUMIN/GLOBULIN RATIO 0.7 (1.1-1.5); ALKALINE PHOSPHATASE 46 IU/L (46-116); ANION GAP 6 (8-16); ASPARTATE AMINO TRANSFERASE 43 U/L (10-37); BILIRUBIN,TOTAL 0.6 MG/DL (0.1-1.0); BLOOD UREA NITROGEN 22 MG/DL (7-18); BUN/CREATININE RATIO 17.7 (10.0-20.0); CALCIUM 7.7 MG/DL (8.5-10.1); CHLORIDE 109 MMOL/L (99-107); CREATININE 1.24 MG/DL (0.60-1.10); GLUCOSE 178 MG/DL (70-104); MAGNESIUM 1.7 MG/DL (1.5-2.4); POTASSIUM 3.7 MMOL/L (3.5-5.1); SODIUM 140 MMOL/L (135-145); TOTAL CARBON DIOXIDE 25.3 MMOL/L (24-32); TOTAL PROTEIN 5.7 G/DL (6.4-8.2); eCRCL 64 ML/MIN; eGFR 59 ML/MIN
[2023-07-21] MEDS: insulin glargine (Lantus) pen - multi-dose SQ SCH (07:48)
[2023-07-21] MEDS: ticagrelor 90mg tablet PO SCH ×2 (07:48→19:13)
[2023-07-21] MEDS: docusate sod 100mg capsule PO SCH ×2 (07:48→19:13)
[2023-07-21] MEDS: aspirin 81mg, enteric-coated 1 TAB TABLET.DR PO SCH (07:48)
[2023-07-21] MEDS: K and/or MAG REPLACEMENT MC SCH ×2 (08:00→19:27)
[2023-07-21] MEDS ORDERED: midazolam 1 mg/ML 2ml injection ONE (12:27)
[2023-07-21] MEDS ORDERED: iohexol 350MG/ML 100ml bottle IV ONE (12:27)
[2023-07-21] MEDS ORDERED: heparin 1,000unit/ml 10ml vial 10 ML ONE (12:27)
[2023-07-21] MEDS ORDERED: verapamil 2.5 mg/ml inj IV ONE (12:27)
[2023-07-21] MEDS ORDERED: LIDOcaine 1% (10mg/ml)w/preservative inj. 20ml MDV ONE (12:27)
[2023-07-21] MEDS ORDERED: fentaNYL/PF 50MCG/1 ML 2ML syringe ONE (12:27)
[2023-07-21] MEDS ORDERED: nitroGLYCERIN 500mcg/5mL D5W 5 ML IV ONE (12:38)
[2023-07-21] MEDS ORDERED: ticagrelor 90mg tablet ONE (13:23)
[2023-07-21] MEDS ORDERED: HYDROcodone/acetaminophen 10/325mg tab PO PRN (14:05)
[2023-07-21] MEDS ORDERED: HYDROcodone/acetaminophen 5mg/325mg tablet PO PRN (14:05)
[2023-07-22] MEDS: HYDROcodone/acetaminophen 10/325mg tab PO PRN (00:37)
[2023-07-22 02:00] VITALS: BP 130/63; PULSE 73; RESP 17; TEMP 97.1; O2SAT 97
[2023-07-22 05:49] LABS: HEMOGLOBIN 10.7 g/dl (14.0-17.9)
[2023-07-22 05:50] LABS: BASOPHILS % (AUTO) 0.4 % (0-1); EOSINOPHILS # (AUTO) 0.2 X10'3 (0-0.9); HEMATOCRIT 31.4 % (42.0-52.0); LYMPHOCYTES # (AUTO) 1.8 X10'3 (1.1-4.8); LYMPHOCYTES % (AUTO) 17.6 % (21-51); MEAN CORPUSCULAR HEMOGLOBIN 32.5 PG (27.0-31.0); MEAN CORPUSCULAR VOLUME 95.8 FL (78-98); MEAN PLATELET VOLUME 8.3 FL (7.4-10.4); MONOCYTES % (AUTO) 9.8 % (2-12); NEUTROPHILS % (AUTO) 70.2 % (42-75); PLATELET COUNT 264 X10'3 (140-440); RED BLOOD COUNT 3.28 X10'6 (4.70-6.10); RED CELL DISTRIBUTION WIDTH 14.2 % (11.5-14.5)
[2023-07-22 06:23] LABS: ALANINE AMINOTRANSFERASE 32 U/L (12-78); ALBUMIN 2.4 G/DL (3.4-5.0); ALBUMIN/GLOBULIN RATIO 0.7 (1.1-1.5); ALKALINE PHOSPHATASE 50 IU/L (46-116); ANION GAP 7 (8-16); ASPARTATE AMINO TRANSFERASE 37 U/L (10-37); BILIRUBIN,TOTAL 0.5 MG/DL (0.1-1.0); BLOOD UREA NITROGEN 20 MG/DL (7-18); BUN/CREATININE RATIO 16.4 (10.0-20.0); CALCIUM 8.2 MG/DL (8.5-10.1); CHLORIDE 107 MMOL/L (99-107); CREATININE 1.22 MG/DL (0.60-1.10); GLUCOSE 205 MG/DL (70-104); POTASSIUM 3.8 MMOL/L (3.5-5.1); SODIUM 138 MMOL/L (135-145); TOTAL CARBON DIOXIDE 24.5 MMOL/L (24-32); eCRCL 65 ML/MIN; eGFR 60 ML/MIN
[2023-07-22 07:00] VITALS: BP 144/73; PULSE 93; RESP 17; TEMP 97.7; O2SAT 99
[2023-07-22 08:00] VITALS: RESP 17; O2SAT 99
[2023-07-22] MEDS ORDERED: sacubitril/valsartan 24mg-26mg tablet PO SCH (08:00)
[2023-07-22] MEDS ORDERED: metoprolol succinate 25mg (24-HOUR) SR. Tablet PO SCH (08:00)
[2023-07-22] MEDS ORDERED: EMPAGLIFLOZIN 25 MG TABLET PO SCH (08:00)
[2023-07-22] MEDS: K and/or MAG REPLACEMENT MC SCH (08:00)
[2023-07-22] MEDS: docusate sod 100mg capsule PO SCH (08:07)
[2023-07-22] MEDS: aspirin 81mg, enteric-coated 1 TAB TABLET.DR PO SCH (08:07)
[2023-07-22] MEDS: ticagrelor 90mg tablet PO SCH (08:07)
[2023-07-22] MEDS: insulin glargine (Lantus) pen - multi-dose SQ SCH (08:09)
[2023-07-22 11:00] VITALS: BP 149/80; PULSE 80; RESP 15; TEMP 98.7; O2SAT 98
[2023-07-22] MEDS ORDERED: TICA90TA PO (12:23)
[2023-07-22] MEDS ORDERED: BEMP180T PO (12:23)
[2023-07-22] MEDS ORDERED: SACU1TAB PO (12:23)
[2023-07-22] MEDS ORDERED: EMPA25TA PO (12:23)
[2023-07-22] MEDS ORDERED: ASPI-1071 PO (12:23)
[2023-07-22] MEDS ORDERED: METO-395 PO (12:23)
== END 2023-07-22 13:33 | disposition home or self-care (01) | DRG 174 ==
LOC: ER 19:55 → PCU 3S 21:57
PROVIDERS: ADMIT Internal Medicine; ATTEND Family Medicine
PROC: 027034Z Dilation of Coronary Artery, One Artery with Drug-eluting Intraluminal Device, Percutaneous Approach (ICD-10-PCS; principal; 2023-07-17)
PROC: 4A023N7 Measurement of Cardiac Sampling and Pressure, Left Heart, Percutaneous Approach (ICD-10-PCS; 2023-07-17)
PROC: B2111ZZ Fluoroscopy of Multiple Coronary Arteries using Low Osmolar Contrast (ICD-10-PCS; 2023-07-17)
PROC: B41F1ZZ Fluoroscopy of Right Lower Extremity Arteries using Low Osmolar Contrast (ICD-10-PCS; 2023-07-17)
PROC: 05HB33Z Insertion of Infusion Device into Right Basilic Vein, Percutaneous Approach (ICD-10-PCS; 2023-07-20)
PROC: B54MZZA Ultrasonography of Right Upper Extremity Veins, Guidance (ICD-10-PCS; 2023-07-20)
PROC: B41F1ZZ Fluoroscopy of Right Lower Extremity Arteries using Low Osmolar Contrast (ICD-10-PCS; 2023-07-21)
PROC: 027035Z Dilation of Coronary Artery, One Artery with Two Drug-eluting Intraluminal Devices, Percutaneous Approach (ICD-10-PCS; 2023-07-21)
PROC: B2111ZZ Fluoroscopy of Multiple Coronary Arteries using Low Osmolar Contrast (ICD-10-PCS; 2023-07-21)
DX: I21.19 ST elevation (STEMI) myocardial infarction involving other coronary artery of inferior wall (principal); N17.0 Acute kidney failure with tubular necrosis; I50.20 Unspecified systolic (congestive) heart failure; I11.0 Hypertensive heart disease with heart failure; E11.9 Type 2 diabetes mellitus without complications; E78.00 Pure hypercholesterolemia, unspecified; R00.1 Bradycardia, unspecified; I48.91 Unspecified atrial fibrillation; R11.2 Nausea with vomiting, unspecified; I08.1 Rheumatic disorders of both mitral and tricuspid valves; I25.10 Atherosclerotic heart disease of native coronary artery without angina pectoris; R60.0 Localized edema; Y92.238 Other place in hospital as the place of occurrence of the external cause; T46.4X5A Adverse effect of angiotensin-converting-enzyme inhibitors, initial encounter; Z88.8 Allergy status to other drugs, medicaments and biological substances; Z88.0 Allergy status to penicillin; Z86.73 Personal history of transient ischemic attack (TIA), and cerebral infarction without residual deficits; Z86.16 Personal history of COVID-19
CPT/HCPCS: 36410; 36415; 71045; 76937; 80053; 80061; 82948; 83036; 83735; 83880; 84484; 85025; 85730; 86885; 86900; 86901; 87081; 92928; 93005; 93306; 93458; 93931; 99152; 99153; 99285; A4615; A6258; C1725; C1751; C1760; C1769; C1874; C1894; C9600; C9606; G0378; J0171; J0282; J0461; J0780; J1644; J1815; J2250; J2270; J2405; J3010; J3490; J7030; Q9967

== ENCOUNTER 2023-08-03 12:04 | Inpatient (IN) | payer MEDICAID ==
[~2023-08-03] VITALS: Ht 180.3 cm; Wt 80.3 kg
[~2023-08-03 12:04] MED LIST changes: +ASPI-1071 PO; -ASPI81TA53 PO; -ATOR20TA66 PO; +BEMP180T PO; -BUDE0.5A3 NEB; -CLOP75TA34 PO; +EMPA25TA PO; -LISI2.5T14 PO; +METO-395 PO; +SACU1TAB PO; +TICA90TA PO; -heparin 10,000 units/1 ML INJ ONE; -nitroGLYCERIN 0.4mg SUBLingual tab SL ONE
[2023-08-03 12:31] LABS: BASOPHILS # (AUTO) 0.1 X10'3 (0-0.2); BASOPHILS % (AUTO) 0.9 % (0-1); EOSINOPHILS # (AUTO) 0.2 X10'3 (0-0.9); EOSINOPHILS % (AUTO) 1.4 % (0-6); HEMATOCRIT 41.1 % (42.0-52.0); HEMOGLOBIN 13.6 g/dl (14.0-17.9); LYMPHOCYTES # (AUTO) 2.3 X10'3 (1.1-4.8); LYMPHOCYTES % (AUTO) 21.1 % (21-51); MEAN CORPUSCULAR HEMOGLOBIN 32.1 PG (27.0-31.0); MEAN CORPUSCULAR HGB CONC 33.2 g/dL (33.0-36.5); MEAN CORPUSCULAR VOLUME 96.5 FL (78-98); MEAN PLATELET VOLUME 7.5 FL (7.4-10.4); MONOCYTES % (AUTO) 9.5 % (2-12); NEUTROPHILS # (AUTO) 7.3 X10'3 (1.8-7.7); NEUTROPHILS % (AUTO) 67.1 % (42-75); PLATELET COUNT 504 X10'3 (140-440); RED BLOOD COUNT 4.26 X10'6 (4.70-6.10); RED CELL DISTRIBUTION WIDTH 14.7 % (11.5-14.5); WHITE BLOOD COUNT 10.9 X10'3 (4.5-11.0)
[2023-08-03 12:45] LABS: ALANINE AMINOTRANSFERASE 27 U/L (12-78); ALBUMIN 3.4 G/DL (3.4-5.0); ALBUMIN/GLOBULIN RATIO 0.7 (1.1-1.5); ALKALINE PHOSPHATASE 65 IU/L (46-116); ANION GAP 11 (8-16); ASPARTATE AMINO TRANSFERASE 14 U/L (10-37); BILIRUBIN,TOTAL 0.6 MG/DL (0.1-1.0); BLOOD UREA NITROGEN 32 MG/DL (7-18); BUN/CREATININE RATIO 23.4 (10.0-20.0); CALCIUM 9.2 MG/DL (8.5-10.1); CHLORIDE 105 MMOL/L (99-107); CREATININE 1.37 MG/DL (0.60-1.10); GLUCOSE 79 MG/DL (70-104); POTASSIUM 4.1 MMOL/L (3.5-5.1); SODIUM 143 MMOL/L (135-145); TOTAL CARBON DIOXIDE 27.2 MMOL/L (24-32); eCRCL 58 ML/MIN; eGFR 52 ML/MIN
[2023-08-03 12:54] LABS: PRO BRAIN NATRIURETIC PEPTIDE 1661 PG/ML (0-125)
[2023-08-03 16:08] LABS: D-DIMER 0.76 MG/L FEU (0-0.50)
[2023-08-03] MEDS ORDERED: magnesium Cl slow-release 64mg tablet PO PRN (16:40)
[2023-08-03] MEDS ORDERED: ondansetron/PF 4mg/2ml inj IV PRN (16:40)
[2023-08-03] MEDS ORDERED: magnesium 4gm in 100ml NS 100 ML IV PRN (16:40)
[2023-08-03] MEDS ORDERED: mag hydrox/Alum hydrox/simeth 30ml oral suspension PO PRN (16:40)
[2023-08-03] MEDS ORDERED: potassium Cl 20 mEq SR tablet PO PRN ×2 (16:40)
[2023-08-03] MEDS ORDERED: magnesium 2GM in 50ml NS 50 ML IV PRN (16:40)
[2023-08-03] MEDS ORDERED: acetaminophen 325mg tablet PO PRN (16:40)
[2023-08-03] MEDS ORDERED: potassium Cl 40MEQ/1/2NS 520ml 520 ML IV PRN (16:40)
[2023-08-03] MEDS ORDERED: magnesium hydroxide 30ml (MOM) UD suspension PO PRN (16:40)
[2023-08-03] MEDS ORDERED: MESSAGE TO PHARMACY PO ONE (17:20)
[2023-08-03] MEDS ORDERED: DEXTROSE 15 GM of carb/4 tabs (each vial/BOTTLE has 4 tablets) PO PRN ×2 (17:20)
[2023-08-03] MEDS ORDERED: insulin Lispro (HumaLOG) vial - multi-dose SQ SCH (17:20)
[2023-08-03] MEDS ORDERED: dextrose 50%-water 50ml dispensing syringe IV PRN ×2 (17:20)
[2023-08-03] MEDS ORDERED: glucagon, human recombinant 1mg kit SUBCUT PRN (17:20)
[2023-08-03] MEDS ORDERED: furosemide 20MG tablet PO ONE (17:25)
[2023-08-03] MEDS ORDERED: nitroGLYCERIN 0.4mg SUBLingual tab SL PRN (17:25)
[2023-08-03] MEDS: K and/or MAG REPLACEMENT MC SCH (19:32)
[2023-08-03] MEDS: docusate sod 100mg capsule PO SCH (20:04)
[2023-08-03] MEDS: ticagrelor 90mg tablet PO SCH (20:04)
[2023-08-03] MEDS: sacubitril/valsartan 24mg-26mg tablet PO SCH (20:14)
[2023-08-03] MEDS ORDERED: insulin glargine (Lantus) pen - multi-dose SQ SCH (21:00)
[2023-08-04 01:14] VITALS: BP 127/89; PULSE 81; RESP 17; TEMP 97.7; O2SAT 98
[2023-08-04 01:37] VITALS: RESP 17; O2SAT 96
[2023-08-04 02:00] VITALS: BP 116/57; PULSE 75; RESP 18; TEMP 98.3; O2SAT 98
[2023-08-04 06:00] VITALS: BP 96/66; PULSE 82; RESP 15; TEMP 97.4; O2SAT 99
[2023-08-04 07:08] LABS: BASOPHILS # (AUTO) 0.1 X10'3 (0-0.2); BASOPHILS % (AUTO) 0.7 % (0-1); EOSINOPHILS # (AUTO) 0.2 X10'3 (0-0.9); EOSINOPHILS % (AUTO) 1.4 % (0-6); HEMATOCRIT 39.3 % (42.0-52.0); LYMPHOCYTES # (AUTO) 2.2 X10'3 (1.1-4.8); LYMPHOCYTES % (AUTO) 18.8 % (21-51); MEAN CORPUSCULAR HEMOGLOBIN 31.8 PG (27.0-31.0); MEAN CORPUSCULAR HGB CONC 33.2 g/dL (33.0-36.5); MEAN CORPUSCULAR VOLUME 96.1 FL (78-98); MEAN PLATELET VOLUME 7.6 FL (7.4-10.4); MONOCYTES % (AUTO) 8.7 % (2-12); NEUTROPHILS # (AUTO) 8.1 X10'3 (1.8-7.7); NEUTROPHILS % (AUTO) 70.4 % (42-75); PLATELET COUNT 467 X10'3 (140-440); RED BLOOD COUNT 4.09 X10'6 (4.70-6.10); RED CELL DISTRIBUTION WIDTH 14.2 % (11.5-14.5); WHITE BLOOD COUNT 11.5 X10'3 (4.5-11.0)
[2023-08-04 07:22] LABS: ALANINE AMINOTRANSFERASE 17 U/L (12-78); ALBUMIN/GLOBULIN RATIO 0.8 (1.1-1.5); ALKALINE PHOSPHATASE 56 IU/L (46-116); ANION GAP 10 (8-16); ASPARTATE AMINO TRANSFERASE 13 U/L (10-37); BILIRUBIN,TOTAL 0.5 MG/DL (0.1-1.0); BLOOD UREA NITROGEN 28 MG/DL (7-18); BUN/CREATININE RATIO 21.2 (10.0-20.0); CALCIUM 8.9 MG/DL (8.5-10.1); CHLORIDE 104 MMOL/L (99-107); CREATININE 1.32 MG/DL (0.60-1.10); GLUCOSE 94 MG/DL (70-104); MAGNESIUM 2.1 MG/DL (1.5-2.4); POTASSIUM 3.7 MMOL/L (3.5-5.1); SODIUM 140 MMOL/L (135-145); eCRCL 60 ML/MIN; eGFR 55 ML/MIN
[2023-08-04] MEDS ORDERED: aspirin 81mg, enteric-coated 1 TAB TABLET.DR PO SCH (08:00)
[2023-08-04] MEDS ORDERED: metoprolol succinate 25mg (24-HOUR) SR. Tablet PO SCH (08:00)
[2023-08-04] MEDS: K and/or MAG REPLACEMENT MC SCH (08:00)
[2023-08-04] MEDS ORDERED: BEMPEDOIC ACID 180 MG PO SCH (08:00)
[2023-08-04] MEDS ORDERED: EMPAGLIFLOZIN 25 MG TABLET PO SCH (08:00)
[2023-08-04] MEDS ORDERED: aspirin 81mg tab.chew PO SCH (08:30)
[2023-08-04] MEDS: sacubitril/valsartan 24mg-26mg tablet PO SCH (08:55)
[2023-08-04] MEDS: ticagrelor 90mg tablet PO SCH (08:55)
[2023-08-04] MEDS: docusate sod 100mg capsule PO SCH (08:55)
[2023-08-04 11:00] VITALS: BP 97/64; PULSE 76; RESP 17; TEMP 98.1; O2SAT 98
[2023-08-04] MEDS ORDERED: furosemide 40mg/4ml inj IV ONE (11:30)
[2023-08-04] MEDS ORDERED: FURO-150 PO (11:48)
== END 2023-08-04 13:00 | disposition home or self-care (01) | DRG 194 ==
LOC: ER 12:05 → ED HOLD 16:46 → PCU 3S 08-04 01:05
PROVIDERS: ADMIT Internal Medicine; ATTEND Internal Medicine
DX: I13.0 Hypertensive heart and chronic kidney disease with heart failure and stage 1 through stage 4 chronic kidney disease, or unspecified chronic kidney disease (principal); I21.A1 Myocardial infarction type 2; I50.23 Acute on chronic systolic (congestive) heart failure; Z20.822 Contact with and (suspected) exposure to COVID-19; E78.00 Pure hypercholesterolemia, unspecified; E11.22 Type 2 diabetes mellitus with diabetic chronic kidney disease; I48.91 Unspecified atrial fibrillation; I25.10 Atherosclerotic heart disease of native coronary artery without angina pectoris; N18.9 Chronic kidney disease, unspecified; Z80.0 Family history of malignant neoplasm of digestive organs; Z98.61 Coronary angioplasty status; Z88.0 Allergy status to penicillin; Z88.8 Allergy status to other drugs, medicaments and biological substances; Z79.899 Other long term (current) drug therapy
CPT/HCPCS: 36415; 71046; 80053; 82948; 83735; 83880; 84100; 84484; 85025; 85379; 87081; 87502; 87503; 87811; 93308; 99285; G0378; J1815; J1940

== ENCOUNTER 2023-11-05 20:22 | Emergency (ER) | payer MEDICAID ==
[~2023-11-05] VITALS: Ht 180.3 cm; Wt 80.8 kg
[~2023-11-05 20:22] MED LIST changes: -BEMP180T PO; +FURO-150 PO; -SACU1TAB PO
[2023-11-05 20:31] VITALS: BP 143/80; PULSE 83; RESP 18; TEMP 98.1; O2SAT 96
[2023-11-05 20:52] LABS: BASOPHILS # (AUTO) 0.1 X10'3 (0-0.2); BASOPHILS % (AUTO) 0.9 % (0-1); EOSINOPHILS # (AUTO) 0.2 X10'3 (0-0.9); EOSINOPHILS % (AUTO) 1.9 % (0-6); HEMATOCRIT 40.8 % (42.0-52.0); LYMPHOCYTES # (AUTO) 2.4 X10'3 (1.1-4.8); LYMPHOCYTES % (AUTO) 26.2 % (21-51); MEAN CORPUSCULAR HEMOGLOBIN 32.5 PG (27.0-31.0); MEAN CORPUSCULAR HGB CONC 34.2 g/dL (33.0-36.5); MEAN PLATELET VOLUME 7.5 FL (7.4-10.4); MONOCYTES # (AUTO) 0.8 X10'3 (0-0.9); NEUTROPHILS # (AUTO) 5.7 X10'3 (1.8-7.7); PLATELET COUNT 364 X10'3 (140-440); WHITE BLOOD COUNT 9.1 X10'3 (4.5-11.0)
[2023-11-05 21:14] LABS: ALBUMIN 3.2 G/DL (3.4-5.0); ANION GAP 12 (8-16); BLOOD UREA NITROGEN 31 MG/DL (7-18); BUN/CREATININE RATIO 22.3 (10.0-20.0); CALCIUM 9.1 MG/DL (8.5-10.1); CHLORIDE 107 MMOL/L (99-107); CREATININE 1.39 MG/DL (0.60-1.10); GLUCOSE 163 MG/DL (70-104); MAGNESIUM 2.2 MG/DL (1.5-2.4); PRO BRAIN NATRIURETIC PEPTIDE 623 PG/ML (0-125); SODIUM 143 MMOL/L (135-145); TOTAL CARBON DIOXIDE 23.8 MMOL/L (24-32); eCRCL 57 ML/MIN; eGFR 51 ML/MIN
== END 2023-11-06 02:22 | disposition left against medical advice (07) ==
LOC: ER 20:23
DX: R42 Dizziness and giddiness (principal); Z53.21 Procedure and treatment not carried out due to patient leaving prior to being seen by health care provider; R79.89 Other specified abnormal findings of blood chemistry
CPT/HCPCS: 36415; 71045; 80048; 83735; 83880; 84484; 85025; 93005; 99281

== ENCOUNTER 2025-06-26 09:46 | Emergency (ER) | payer MEDICARE, MEDICAID ==
[~2025-06-26] VITALS: Ht 180.3 cm; Wt 86.0 kg
[2025-06-26 09:55] VITALS: TEMP 97.3
--- NOTE | 2025-06-26 11:02 | Physician Documentation ---
History of Present Illness ~ Chief Complaint: Diabetic Complication Stated Complaint: HYPOGLYCEMIA Time Seen by MD: 10:03 Primary Medical Doctor: DR FARAH HPI 65 yom h/o IDDM2, HFrEF 40-45%, CAD status post PCI of LCx LAD on 07/2023 p/w nausea and sweating. Reports he gets sweaty and confused with low BG. Today he awoke BG 90, got up and ate and became diaphoretic and not feeling well. [place] similar to prior hypoglycemic episodes. EMS called who reported BG 50. Recently doubled his jardiance for BS control. Medication Reconciliation Allergies: Coded Allergies: Penicillins (Verified Allergy, Unknown, FAMILY ALLERGY, 06/26/25) Tdfszqx-CPQ-[id number] Reductase Inhibitor (Verified Allergy, Unknown, PUFFY/SWELLING, 06/26/25) gabapentin (Verified Allergy, Unknown, CONFUSED, 06/26/25) Scheduled Aspirin (Ecotrin*), 1 TAB PO DAILY Empagliflozin (Jardiance), 25 MG PO DAILY Furosemide (Lasix), 20 MG PO DAILY Insulin Glargine,Hum.rec.anlog (Basaglar Kwikpen U-100), 30 UNITS SQ DAILY, (Reported) Metoprolol Succinate (Metoprolol Succinate), 25 MG PO DAILY Ticagrelor (Brilinta), 90 MG PO BID Past Medical History Past Medical History: CVA/TIA/Stroke, *ENT*, Atrial Fibrillation, High Cholesterol, Hypertension, Diabetes Past Surgical History: other Patient History: Bone cancer MOTHER, , Age: 99 FH: HTN (hypertension) GRANDFATHER OR GRANDMOTHER, FH: heart disease FATHER, GRANDFATHER OR GRANDMOTHER, FHx: pancreatic cancer GRANDFATHER OR GRANDMOTHER, Alcohol Use: Rarely Drug Use: none Lives with: Spouse Lives In: Home Review of Systems All Other Systems at this time: Reviewed and Negative Respiratory: Denies: cough, orthopnea, shortness of breath, SOB with exertion, SOB at rest Cardiovascular: Denies: chest pain Gastrointestinal: Reports: nausea; Denies: abdominal pain, vomiting Genitourinary: Denies: burning Neurological: Denies: headache Musculoskeletal: Denies: pain Integumentary: Denies: rash Physical Exam Vital Signs: Temperature: 97.3, Source: Oral, Heart Rate: 80, Respiratory Rate: 18, BP: 136/78, Pulse Oximetry: 98, Weight: 86.000 Physical Exam well appearing no distress neck no jvd, moist mucous membranes lungs ctab, no distress cardiac no murmur abdomen soft non tender lower ext no edema no rash skin pwd neuro a0x4 moving all extremities/ intact strength, CN2-12 intact. normal gait normal speech. Progress Progress Note 107 recheck feeling resolved, eating cheese. 217 recheck still feels good. ready for d.c Results/Orders Reviewed/noted all lab results: Yes Results/Orders Orders - ERNIE GUO MD Covid19 Binax Poc Result Entry (06/26/25 12:07) Chest,Single View (06/26/25 12:07) Completed Orders - ERNIE GUO MD Cbc/Diff (06/26/25 11:13) BMP (06/26/25 11:13) Hs Troponin I W Calculations (06/26/25 11:13) Electrocardiogram (06/26/25 ) Chest,Single View (06/26/25 12:07) Ua With Microscopic (06/26/25 12:02) Hs Troponin I W Calculations (06/26/25 13:08) Vital Signs 06/26/25 09:55 Temp 97.3 Pulse 80 Resp 18 B/P (MAP) 136/78 Pulse Ox 98 Laboratory Tests Test 06/26/25 11:28 06/26/25 12:02 06/26/25 12:51 06/26/25 13:22 White Blood Count 16.6 H Red Blood Count 4.75 Hemoglobin 15.2 Hematocrit 45.5 Mean Corpuscular Volume 95.6 Mean Corpuscular Hemoglobin 32.0 H Mean Corpuscular Hemoglobin Concent 33.5 Red Cell Distribution Width 13.8 Platelet Count 311 Mean Platelet Volume 8.0 Neutrophils (%) (Auto) 87.0 H Lymphocytes (%) (Auto) 5.7 L Monocytes (%) (Auto) 6.9 Eosinophils (%) (Auto) 0.2 Basophils (%) (Auto) 0.2 Neutrophils # (Auto) 14.4 H Lymphocytes # (Auto) 0.9 L Monocytes # (Auto) 1.1 H Eosinophils # (Auto) 0.0 Basophils # (Auto) 0.0 CBC Comment Sodium Level 142 Potassium Level 4.3 Chloride Level 107 Carbon Dioxide Level 31.4 Anion Gap 4 L Blood Urea Nitrogen 23 H Creatinine 1.38 H Estimated GFR/1.73 m2 52 BUN/Creatinine Ratio 16.7 Glucose Level 72 Calcium Level 8.7 Troponin I High Sensitivity 16 24 Albumin 3.4 Chemistry Comments Urine Specimen Description Cln catch midstream Urine Color Yellow Urine Clarity Clear Urine pH 5.5 Urine Specific [place] 1.025 Urine Protein Trace Urine Glucose (UA) >=1000 H Urine Ketones Negative Urine Occult Blood Negative Urine Nitrite Negative Urine Bilirubin Negative Urine Urobilinogen 0.2 Urine Leukocyte Esterase Negative Urine RBC 0-2 Urine WBC 0-4 Urine Squamous Epithelial Cells Few Urine Bacteria Few Urine Hyaline Casts 3-5 Urine Mucus Few Urine Sperm Few Volume Urine Centrifuged 10 ml Urine Comment Glucometer 197 H Troponin I High Sens Percent Delta 50 Troponin I Hi Sens Absolute Change 8 Medical Decision Making Additional information obtaine: old records (d/c summary 07/2023) Findings 65 yom p/w usual symptoms from hypoglycemia. BS 50. Resolved with PO intake. Labs show leukocytosis which has been gradually increasing. No abdominal pain or ttp. CXR clear. ua clear. Symptoms resolved. tropes negative. BG resolved. He was recently doubled on his jardiance I advised cutting it back to his prior dose and calling PCP. Differential Dx:Considerations: Include: Other Departure Disposition: 01 HOME / SELF CARE / HOMELESS Impression: Primary Impression: Hypoglycemia Additional Instructions: Reduce your jardiance to the prior dose. Return if you develop any further episodes or for any chest pain or shortness of breath. Referrals: NO PRIMARY CARE PROVIDER (PCP) Signature Scribe Signature: na Attestation: ERNIE Santos MD Jun 26, 2025 11:02
[2025-06-26 11:39] LABS: MEAN PLATELET VOLUME 8.0 FL (7.4-10.4); RED CELL DISTRIBUTION WIDTH 13.8 % (11.5-14.5)
[2025-06-26 11:51] LABS: CREATININE 1.38 MG/DL (0.60-1.10); TOTAL CARBON DIOXIDE 31.4 MMOL/L (24-32); eCRCL 56 ML/MIN; eGFR 52 ML/MIN
--- NOTE | 2025-06-26 12:09 | ELECTROCARDIOGRAPH REPORT ---
[facility] Test Date: 2025-06-26 Test Time: 12:06:15 Pat Name: CHRISTI HUYNH Department: [facility] Patient ID: [facility]-[id number] Room: Gender: M Shorer: : 1960 Requested By: ERNIE GUO Order Number: [id number] Reading MD: Measurements Intervals Fertile Rate: 71 P: 0 WV: 0 QRS: -10 QRSD: 119 T: -43 QT: 408 QTc: 444 Interpretive Statements Atrial fibrillation Left ventricular hypertrophy Probable inferior infarct, recent Lateral leads are also involved Baseline wander in lead(s) I,V1,V2 Please click the below link to view image of tracing.
[2025-06-26 12:16] LABS: LEUKOCYTE ESTERASE ,URINE NEGATIVE (Neg); NITRITES, URINE NEGATIVE (Neg); OCCULT BLOOD,URINE NEGATIVE (Neg)
[2025-06-26 12:20] LABS: UA COLLECTION TYPE CLN CATCH MIDSTREAM
[2025-06-26 12:33] LABS: SPERM FEW /HPF (NEGATIVE); SQUAMOUS EPITHELIAL CELL,UR FEW /LPF (FEW)
[2025-06-26 12:34] LABS: MUCUS STRANDS FEW /LPF (Neg)
--- NOTE | 2025-06-26 12:42 | RADIOLOGY REPORT ---
AP portable chest Comparison: 11/05/2023 CLINICAL INDICATION: SOB FINDINGS: Heart size is normal. No infiltrates or effusions. No bony thoracic abnormalities. IMPRESSION: 1. Normal chest x-ray.
[2025-06-26 14:34] VITALS: BP 130/74; PULSE 65; RESP 20; O2SAT 98
[2025-06-26] MEDS ORDERED: FLAS1EAC (14:34)
[2025-06-26] MEDS ORDERED: [UNRECOGNIZED DRUG - CODE] (14:34)
== END 2025-06-26 14:38 | disposition home or self-care (01) ==
LOC: ER 09:47
DX: E11.649 Type 2 diabetes mellitus with hypoglycemia without coma (principal); E78.00 Pure hypercholesterolemia, unspecified; I11.0 Hypertensive heart disease with heart failure; I50.22 Chronic systolic (congestive) heart failure; I25.10 Atherosclerotic heart disease of native coronary artery without angina pectoris; I48.91 Unspecified atrial fibrillation; Z79.4 Long term (current) use of insulin; Z88.0 Allergy status to penicillin; Z88.8 Allergy status to other drugs, medicaments and biological substances; Z86.73 Personal history of transient ischemic attack (TIA), and cerebral infarction without residual deficits; Z95.5 Presence of coronary angioplasty implant and graft; Z79.899 Other long term (current) drug therapy; Z79.82 Long term (current) use of aspirin
CPT/HCPCS: 36415; 71045; 80048; 81001; 82948; 84484; 85025; 93005; 99285